=== PATIENT | female | born 1965 | race Caucasian/White ===

== ENCOUNTER 2016-07-02 19:17 | Inpatient (IN) | payer BC ==
[2016-07-02] MEDS ORDERED: SODIUM CHLORIDE 0.9% 500 ML IV STA (19:29)
[2016-07-02 19:45] LABS: Basophils # (A) 0.1 k/uL (0-0.2); Basophils % (A) 1 %; CH 30.8; CHCM 34.1; Eosinophils # (A) 0.2 k/uL (0-0.7); Eosinophils % (A) 2 %; HCT 42.6 % (34.0-46.0); HDW 2.39; Luc # (Auto) 0.21; Luc % (Auto) 3; Lymphocytes # (A) 2.3 k/uL (1.0-4.8); Lymphocytes % (A) 29 %; MCH 29.8 pg (25.0-35.0); MCHC 32.9 g/dL (31.0-37.0); MCV 90.7 fL (80.0-100.0); Monocytes # (A) 0.3 k/uL (0-1.0); Monocytes % (A) 4 %; Neutrophils % (A) 62 %; RDW 12.3 % (11.5-15.5); WBC (Perox) 8.21
--- NOTE | 2016-07-02 19:48 | ED ---
General Adult HPI - General Chief complaint: Arrhythmia/Palpitations Stated complaint: Palpatations Time Seen by Provider: 07/02/16 19:30 Source: patient, RN notes reviewed Mode of arrival: ambulatory Limitations: no limitations - History of Present Illness Initial comments: Is a 50-year-old female presents to the emergency department complaining of palpitations patient states she can feel her heart racing and then she is a little short of breath and a little bit dizzy. Patient thought at one point she was going to pass out. Patient states she's never had this before. Patient denies any chest pain. Patient denies any smoking. Patient denies any health problems. Patient denies any recent fever chills or cough. Patient denies any recent travel or trips. Patient denies any leg swelling or calf tenderness. - Related Data Home Medications Medication Instructions Recorded Confirmed No Known Home Medications [No 07/02/16 07/02/16 Known Home Medications] Allergies Allergy/AdvReac Type Severity Reaction Status Date / Time Penicillins Allergy Unknown Verified 07/02/16 19:49 Childhood Review of Systems ROS Statement: Those systems with pertinent positive or pertinent negative responses have been documented in the HPI. ROS Other: All systems not noted in ROS Statement are negative. Past Medical History Past Medical History: No Reported History History of Any Multi-Drug Resistant Organisms: None Reported Past Surgical History: Tonsillectomy Past Psychological History: Anxiety, Depression Smoking Status: Former smoker Past Alcohol Use History: Occasional Past Drug Use History: None Reported General Exam - General Exam Comments Initial Comments: GENERAL: Patient is well-developed and well-nourished. Patient is nontoxic and well- hydrated and is in no acute distress. ENT: Neck is soft and supple. No significant lymphadenopathy is noted. Oropharynx is clear. Moist mucous membranes. Neck has full range of motion without eliciting any pain. EYES: The sclera were anicteric and conjunctiva were pink and moist. Extraocular movements were intact and pupils were equal round and reactive to light. Eyelids were unremarkable. PULMONARY: Unlabored respirations. Good breath sounds bilaterally. No audible rales rhonchi or wheezing was noted. CARDIOVASCULAR: There is a regular rate and rhythm without any murmurs gallops or rubs. ABDOMEN: Soft and nontender with normal bowel sounds. No palpable organomegaly was noted. There is no palpable pulsatile mass. SKIN: Skin is clear with no lesions or rashes and otherwise unremarkable. NEUROLOGIC: Patient is alert and oriented x3. Cranial nerves II through XII are grossly intact. Motor and sensory are also intact. Normal speech, volume and content. Symmetrical smile. MUSCULOSKELETAL: Normal extremities with adequate strength and full range of motion. No lower extremity swelling or edema. No calf tenderness. LYMPHATICS: No significant lymphadenopathy is noted PSYCHIATRIC: Normal psychiatric evaluation. Normal interpersonal interactions appears functionally intact in deals appropriately with others. No signs of depression. No signs of anxiety. Limitations: no limitations Course Vital Signs 07/02/16 07/02/16 07/02/16 19:27 19:29 20:03 Temperature 98.4 F Pulse Rate 121 H 99 Pulse Rate [ 111 H Journeyman [employer]wright ] Respiratory 18 18 Rate Blood Pressure 150/94 O2 Sat by Pulse 96 98 Oximetry 07/02/16 21:00 Temperature 98.0 F Pulse Rate 124 H Pulse Rate [ Journeyman [place]wright ] Respiratory 20 Rate Blood Pressure 138/63 O2 Sat by Pulse 98 Oximetry Medical Decision Making - Medical Decision Making EKG shows sinus tachycardia at 103 bpm WI interval 108 QRSs 88 QT interval 344 QTC is 450 per patient's EKG shows no ST segment elevation or depression or T wave abnormalities are noted Chest x-ray shows no acute abdomen. Patient's heart rate Racing up to 120 beats a minute even though she was lying in bed resting. Patient states when he goes faster she feels little lightheaded and short of breath still. Patient states earlier today she almost passed out and that is why she came to the emergency department - Lab Data Result diagrams: 07/02/16 19:35 07/02/16 19:35 Lab Results 07/02/16 07/02/16 07/02/16 Range/Units 19:35 19:35 19:35 WBC 8.0 (3.8-10.6) k/uL RBC 4.70 (3.80-5.40) m/uL Hgb 14.0 (11.4-16.0) gm/dL Hct 42.6 (34.0-46.0) % MCV 90.7 (80.0-100.0) fL MCH 29.8 (25.0-35.0) pg MCHC 32.9 (31.0-37.0) g/dL RDW 12.3 (11.5-15.5) % Plt Count 261 (150-450) k/uL Neutrophils % 62 % Lymphocytes % 29 % Monocytes % 4 % Eosinophils % 2 % Basophils % 1 % Neutrophils # 5.0 (1.3-7.7) k/uL Lymphocytes # 2.3 (1.0-4.8) k/uL Monocytes # 0.3 (0-1.0) k/uL Eosinophils # 0.2 (0-0.7) k/uL Basophils # 0.1 (0-0.2) k/uL PT (9.0-12.0) sec INR (<1.1) APTT (22.0-30.0) sec Sodium 144 (137-145) mmol/L Potassium 3.6 (3.5-5.1) mmol/L Chloride 106 (98-107) mmol/L Carbon Dioxide 24 (22-30) mmol/L Anion Gap 14 mmol/L BUN 23 H (7-17) mg/dL Creatinine 0.80 (0.52-1.04) mg/dL Est GFR (MDRD) Af Amer >60 (>60 ml/min/1.73 sqM) Est GFR (MDRD) Non-Af >60 (>60 ml/min/1.73 sqM) Glucose 110 H (74-99) mg/dL Calcium 10.0 (8.4-10.2) mg/dL Magnesium 1.8 (1.6-2.3) mg/dL Total Bilirubin 0.3 (0.2-1.3) mg/dL AST 41 H (14-36) U/L ALT 55 H (9-52) U/L Alkaline Phosphatase 91 (38-126) U/L Total Creatine Kinase 63 (30-135) U/L CK-MB (CK-2) 0.5 (0.0-2.4) ng/mL CK-MB (CK-2) Rel Index 0.8 Troponin I <0.012 (0.000-0.034) ng/mL Total Protein 8.2 (6.3-8.2) g/dL Albumin 4.8 (3.5-5.0) g/dL TSH 3.220 (0.465-4.680) mIU/L Free T4 0.70 L (0.78-2.19) ng/dL Urine Opiates Screen (NotDetected) Ur Oxycodone Screen (NotDetected) Urine Methadone Screen (NotDetected) Ur Propoxyphene Screen (NotDetected) Ur Barbiturates Screen (NotDetected) U Tricyclic Antidepress (NotDetected) Ur Phencyclidine Scrn (NotDetected) Ur Amphetamines Screen (NotDetected) U Methamphetamines Scrn (NotDetected) U Benzodiazepines Scrn (NotDetected) Urine Cocaine Screen (NotDetected) U Marijuana (THC) Screen (NotDetected) 07/02/16 07/02/16 Range/Units 19:35 21:10 WBC (3.8-10.6) k/uL RBC (3.80-5.40) m/uL Hgb (11.4-16.0) gm/dL Hct (34.0-46.0) % MCV (80.0-100.0) fL MCH (25.0-35.0) pg MCHC (31.0-37.0) g/dL RDW (11.5-15.5) % Plt Count (150-450) k/uL Neutrophils % % Lymphocytes % % Monocytes % % Eosinophils % % Basophils % % Neutrophils # (1.3-7.7) k/uL Lymphocytes # (1.0-4.8) k/uL Monocytes # (0-1.0) k/uL Eosinophils # (0-0.7) k/uL Basophils # (0-0.2) k/uL PT 9.6 (9.0-12.0) sec INR 0.9 (<1.1) APTT 23.1 (22.0-30.0) sec Sodium (137-145) mmol/L Potassium (3.5-5.1) mmol/L Chloride (98-107) mmol/L Carbon Dioxide (22-30) mmol/L Anion Gap mmol/L BUN (7-17) mg/dL Creatinine (0.52-1.04) mg/dL Est GFR (MDRD) Af Amer (>60 ml/min/1.73 sqM) Est GFR (MDRD) Non-Af (>60 ml/min/1.73 sqM) Glucose (74-99) mg/dL Calcium (8.4-10.2) mg/dL Magnesium (1.6-2.3) mg/dL Total Bilirubin (0.2-1.3) mg/dL AST (14-36) U/L ALT (9-52) U/L Alkaline Phosphatase (38-126) U/L Total Creatine Kinase (30-135) U/L CK-MB (CK-2) (0.0-2.4) ng/mL CK-MB (CK-2) Rel Index Troponin I (0.000-0.034) ng/mL Total Protein (6.3-8.2) g/dL Albumin (3.5-5.0) g/dL TSH (0.465-4.680) mIU/L Free T4 (0.78-2.19) ng/dL Urine Opiates Screen Not Detected (NotDetected) Ur Oxycodone Screen Not Detected (NotDetected) Urine Methadone Screen Not Detected (NotDetected) Ur Propoxyphene Screen Not Detected (NotDetected) Ur Barbiturates Screen Not Detected (NotDetected) U Tricyclic Antidepress Not Detected (NotDetected) Ur Phencyclidine Scrn Not Detected (NotDetected) Ur Amphetamines Screen Not Detected (NotDetected) U Methamphetamines Scrn Not Detected (NotDetected) U Benzodiazepines Scrn Not Detected (NotDetected) Urine Cocaine Screen Not Detected (NotDetected) U Marijuana (THC) Screen Not Detected (NotDetected) Disposition Clinical Impression: Sinus tachycardia, Near syncope Disposition: ADMITTED IP TO THIS HOSP Time of Disposition: 22:01
[2016-07-02 19:57] LABS: ALT 55 U/L (9-52); AST 41 U/L (14-36); Alkaline Phosphatase 91 U/L (38-126); Anion Gap 14 mmol/L; Blood Urea Nitrogen 23 mg/dL (7-17); Carbon Dioxide 24 mmol/L (22-30); Chloride 106 mmol/L (98-107); Glucose 110 mg/dL (74-99); Magnesium 1.8 mg/dL (1.6-2.3); Non-African American GFR(MDRD) >60 (>60 ml/min/1.73 sqM); Potassium 3.6 mmol/L (3.5-5.1); Sodium 144 mmol/L (137-145); Total Bilirubin 0.3 mg/dL (0.2-1.3); Total Protein 8.2 g/dL (6.3-8.2)
[2016-07-02 20:13] LABS: INR 0.9 (<1.1); Partial Thromboplastin Time 23.1 sec (22.0-30.0); Prothrombin Time 9.6 sec (9.0-12.0)
[2016-07-02 20:21] LABS: Creatine Kinase 63 U/L (30-135)
[2016-07-02 20:32] LABS: Creatine Kinase MB 0.5 ng/mL (0.0-2.4); Troponin I <0.012 ng/mL (0.000-0.034)
--- NOTE | 2016-07-02 20:48 | XR ---
EXAMINATION TYPE: XR chest 2V DATE OF EXAM: 07/02/2016 8:32 PM COMPARISON: NONE HISTORY: Dysrhythmia TECHNIQUE: Frontal and lateral views of the chest are obtained. FINDINGS: Heart and mediastinum are normal. Lungs are clear. Diaphragm is normal. There are chest le ads. Bony thorax appears normal. IMPRESSION: Normal chest
[2016-07-02] MEDS ORDERED: NITROGLYCERIN SL TABS 0.4 MG TAB SUBLINGUAL PRN (22:01)
[2016-07-02 22:49] VITALS: BMI 24.2
[2016-07-03 01:38] LABS: Creatine Kinase 51 U/L (30-135)
[2016-07-03 01:52] LABS: Creatine Kinase MB 0.4 ng/mL (0.0-2.4); Troponin I <0.012 ng/mL (0.000-0.034)
[2016-07-03] MEDS: ASPIRIN 325 MG TAB PO SCH (08:18)
[2016-07-03 08:50] LABS: Cholesterol 214 mg/dL (<200); HDL Cholesterol 94 mg/dL (40-60); Triglycerides 38 mg/dL (<150)
[2016-07-03 09:02] LABS: Creatine Kinase 51 U/L (30-135)
--- NOTE | 2016-07-03 09:08 | P.CRDCN ---
History of Present Illness Consult date: 07/03/16 Chief complaint: Heart racing History of present illness: This is a pleasant 50-year-old female patient with no significant past medical history who presented to the emergency room because she was not feeling well. The patient was in her usual state of health until the time she presented complaining of heart racing and fluttering. She felt dizzy and lightheaded and she almost passing out. Denies having any chest pain or discomfort. No shortness of breath. And no syncope. She was found to be in sinus tachycardia. The sinus tachycardia has improved after the patient received a bolus of 500 mL of 0.9 normal saline. The TSH was checked and came in to be within normal limits but the free T4 was on the low limits of normal. The EKG shows sinus rhythm without any significant changes. The cardiac enzymes were checked and came in to be unremarkable. I will obtain an echocardiogram with Doppler. The patient sinus tachycardia seems to be resolved and her heart rate has been in the 60s. Past Medical History Past Medical History: No Reported History Additional Past Medical History / Comment(s): broncitis, pneumonia History of Any Multi-Drug Resistant Organisms: None Reported Past Surgical History: Tonsillectomy Additional Past Surgical History / Comment(s): Rt hand surgery Past Anesthesia/Blood Transfusion Reactions: No Reported Reaction Past Psychological History: Anxiety, Depression Smoking Status: Former smoker Past Alcohol Use History: Occasional Past Drug Use History: None Reported Medications and Allergies Home Medications Medication Instructions Recorded Confirmed Type No Known Home Medications [No 07/02/16 07/02/16 History Known Home Medications] Allergies Allergy/AdvReac Type Severity Reaction Status Date / Time Penicillins Allergy Unknown Verified 07/02/16 19:49 Childhood Physical Exam Vitals: Vital Signs Temp Pulse Pulse Resp BP Pulse Ox 07/03/16 08:21 61 07/03/16 07:50 99 07/03/16 07:31 109/59 07/03/16 07:29 98.3 F 80 16 99 07/03/16 04:00 98.3 F 78 18 110/56 99 07/02/16 23:00 18 07/02/16 22:52 98.2 F 100 18 131/71 96 Intake and Output 07/02/16 07/03/16 07/03/16 22:59 06:59 14:59 Intake Total 200 Balance 200 Intake: Oral 200 Other: Voiding Method Toilet Toilet # Voids 2 Weight 68.039 kg - Constitutional General appearance: no acute distress - Respiratory Respiratory: bilateral: CTA - Cardiovascular Rhythm: regular Heart sounds: normal: S1, S2 Results 07/02/16 19:35 07/02/16 19:35 Cardiac Enzymes 07/03/16 Range/Units 00:48 CK-MB (CK-2) 0.4 (0.0-2.4) ng/mL Troponin I <0.012 (0.000-0.034) ng/mL Lipids 07/03/16 Range/Units 07:30 Triglycerides 38 (<150) mg/dL Cholesterol 214 H (<200) mg/dL HDL Cholesterol 94 H (40-60) mg/dL Current Medications Generic Name Dose Route Start Last Admin Trade Name Freq PRN Reason Stop Dose Admin Aspirin 325 mg 07/03/16 09:00 07/03/16 08:18 Aspirin PO 325 mg DAILY MOISES Administration Nitroglycerin 0.4 mg 07/02/16 22:01 Nitrostat SUBLINGUAL Q5M PRN Chest Pain Intake and Output 07/02/16 07/03/16 07/03/16 22:59 06:59 14:59 Intake Total 200 Balance 200 Intake: Oral 200 Other: Voiding Method Toilet Toilet # Voids 2 Weight 68.039 kg Assessment and Plan Plan: Assessment #1 sinus tachycardia #2 possible dehydration Plan #1 the patient sinus tachycardia has improved #2 obtain an echocardiogram was Doppler #3 follow-up with the patient
[2016-07-03 09:14] LABS: Creatine Kinase MB 0.4 ng/mL (0.0-2.4); Troponin I <0.012 ng/mL (0.000-0.034)
[2016-07-03] MEDS: METOPROLOL TARTRATE 25 MG TAB PO SCH ×2 (11:25→21:05)
--- NOTE | 2016-07-03 14:38 | ECHOF ---
Referral Reason:tachycardia MEASUREMENTS -------- HEIGHT: 167.6 cm WEIGHT: 68.0 kg BP: IVSd: 0.8 cm (0.6 - 1.1) LVIDd: 4.3 cm (3.9 - 5.3) LVPWd: 1.1 cm (0.6 - 1.1) IVSs: 1.2 cm LVIDs: 2.0 cm LVPWs: 1.6 cm Ao Diam: 2.9 cm (2.0 - 3.7) AV Cusp: 1.7 cm (1.5 - 2.6) LA Diam: 2.9 cm (2.7 - 3.8) MV EXCURSION: 11.236 mm (> 18.000) MV EF SLOPE: 80 mm/s (70 - 150) EPSS: 0.3 cm MV E Haim: 1.04 m/s MV DecT: 149 ms MV A Haim: 0.86 m/s MV E/A Ratio: 1.21 RAP: 5.00 mmHg RVSP: 17.74 mmHg FINDINGS -------- Sinus rhythm. This was a technically good study. Left ventricular wall thickness is normal. Overall left ventricular systolic function is normal with, an EF between 60 - 65 %. False Tendon Visualized in the LV The right ventricle is normal in size and function. The left atrium is normal in size. The right atrium is normal in size. The aortic valve is trileaflet, and appears structurally normal. No aortic stenosis or regurgitation. There is trace mitral regurgitation. Trace tricuspid regurgitation present. The right ventricular systolic pressure, as measured by Doppler, is 17.74mmHg. Pulmonic valve appears structurally normal. The aortic root size is normal. The pericardium is normal. CONCLUSIONS -------- 1. Sinus rhythm. 2. There is trace mitral regurgitation. 3. Trace tricuspid regurgitation present. 4. The right ventricular systolic pressure, as measured by Doppler, is 17.74mmHg. 5. Pulmonic valve appears structurally normal. 6. The aortic root size is normal. 7. The pericardium is normal. 8. This was a technically good study. 9. Left ventricular wall thickness is normal. 10. Overall left ventricular systolic function is normal with, an EF between 60 - 65 %. 11. False Tendon Visualized in the LV 12. The right ventricle is normal in size and function. 13. The left atrium is normal in size. 14. The right atrium is normal in size. 15. The aortic valve is trileaflet, and appears structurally normal. No aortic stenosis or regurgitation. LITIGATION SECRETARY: Mary Walker RDCS
[2016-07-03 21:18] LABS: Appearance,Urine Clear (Clear); Bilirubin,Urine Negative (Negative); Glucose,Urine (UA) Negative (Negative); Ketones,Urine Negative (Negative); Leukocyte Esterase,Urine Negative (Negative); Nitrite,Urine Negative (Negative); PH, Urine 6.5 (5.0-8.0); Protein,Urine Negative (Negative); Specific Gravity,Urine 1.006 (1.001-1.035); UA Billing (MACRO vs. MICRO) CHEM; Urobilinogen,Urine <2.0 mg/dL (<2.0)
[2016-07-04 06:39] LABS: Basophils % (A) 1 %; CH 29.9; CHCM 32.9; Eosinophils # (A) 0.1 k/uL (0-0.7); Eosinophils % (A) 2 %; HCT 39.1 % (34.0-46.0); HDW 2.33; HGB 12.8 gm/dL (11.4-16.0); Luc # (Auto) 0.19; Luc % (Auto) 3; Lymphocytes # (A) 2.1 k/uL (1.0-4.8); Lymphocytes % (A) 32 %; MCH 29.9 pg (25.0-35.0); MCHC 32.7 g/dL (31.0-37.0); MCV 91.3 fL (80.0-100.0); Mean Platelet Volume 7.2; Monocytes # (A) 0.3 k/uL (0-1.0); Monocytes % (A) 4 %; Neutrophils # (A) 3.9 k/uL (1.3-7.7); Neutrophils % (A) 59 %; RBC 4.29 m/uL (3.80-5.40); RDW 12.2 % (11.5-15.5); WBC 6.6 k/uL (3.8-10.6); WBC (Perox) 7.18
[2016-07-04 06:52] LABS: ALT 43 U/L (9-52); AST 25 U/L (14-36); Alkaline Phosphatase 80 U/L (38-126); Anion Gap 9 mmol/L; Blood Urea Nitrogen 13 mg/dL (7-17); Calcium 10.1 mg/dL (8.4-10.2); Carbon Dioxide 27 mmol/L (22-30); Chloride 107 mmol/L (98-107); Glucose 94 mg/dL (74-99); Non-African American GFR(MDRD) >60 (>60 ml/min/1.73 sqM); Potassium 4.9 mmol/L (3.5-5.1); Sodium 143 mmol/L (137-145); Total Bilirubin 0.5 mg/dL (0.2-1.3); Total Protein 7.4 g/dL (6.3-8.2)
[2016-07-04 08:18] VITALS: RESP 16
[2016-07-04] MEDS ORDERED: METOPROLOL TARTRATE 12.5 MG TAB PO SCH (08:18)
--- NOTE | 2016-07-04 08:24 | P.PN ---
Subjective Principal diagnosis: sinus tachycardia This is a pleasant 50-year-old female patient with no significant past medical history who presented to the emergency room because she was not feeling well. The patient was in her usual state of health until the time she presented complaining of heart racing and fluttering. She felt dizzy and lightheaded and she almost passing out. Denies having any chest pain or discomfort. No shortness of breath. And no syncope. She was found to be in sinus tachycardia. The sinus tachycardia has improved after the patient received a bolus of 500 mL of 0.9 normal saline. The TSH was checked and came in to be within normal limits but the free T4 was on the low limits of normal. The EKG shows sinus rhythm without any significant changes. The cardiac enzymes were checked and came in to be unremarkable. the patient underwent an echocardiogram which showed normal function. There is no significant valvular abnormalities. The patient was started on beta kyara with metoprolol at 25 mg by mouth twice a day. Later on during the day she had an episode of profound and symptomatic bradycardia where the heart rate dropped to the 30s. I am going to decrease the dose of metoprolol to 12.5 mg by mouth twice a day. I'll try to get the patient up and around. We'll continue monitor the heart rate and continue monitor the blood pressure and I would keep the patient for additional 24 hours in the hospital. Objective - Vital Signs Vital signs: Vital Signs Temp 98.2 F 07/04/16 08:00 Pulse 56 L 07/04/16 08:00 Resp 16 07/04/16 08:00 BP 99/54 07/04/16 08:00 Pulse Ox 96 07/04/16 08:00 Intake & Output 07/03/16 07/04/16 07/04/16 18:59 06:59 18:59 Intake Total 275 450 Balance 275 450 Intake: Oral 275 450 Other: Voiding Method Toilet Toilet # Voids 1 3 - Constitutional General appearance: Present: no acute distress - Respiratory Respiratory: bilateral: CTA - Cardiovascular Rhythm: regular Heart sounds: normal: S1, S2 - Labs CBC & Chem 7: 07/04/16 06:11 07/04/16 06:11 Labs: Abnormal Lab Results - Last 24 Hours (Table) 07/03/16 Range/Units 07:30 Cholesterol 214 H (<200) mg/dL LDL Cholesterol, Calc 112 H (0-99) mg/dL HDL Cholesterol 94 H (40-60) mg/dL Assessment and Plan Plan: Assessment #1 symptomatic sinus bradycardia #2 possible dehydration Plan #1 decrease the dose of metoprolol #2 the echocardiogram was reviewed #3 follow-up with the patient
[2016-07-04] MEDS: ASPIRIN 325 MG TAB PO SCH (09:30)
--- NOTE | 2016-07-04 14:04 | HP ---
DATE OF SERVICE: 07/03/2016 CHIEF COMPLAINT: Palpitations. Ms. Tong is a 50-year-old female with no significant past medical history, coming into the hospital with a chief complaint of palpitations. The patient states that she was in her usual state of health yesterday when she started to feel that her heart was racing and fluttering and she also felt dizzy and light-headed and she thought that she would almost pass out and so came into the hospital for further evaluation. The patient just complaints of palpitations and dizziness, but denies having any chest pain, any difficulty in breathing. She does not have any complaints of cough. No cold-like symptoms. No sick contacts. No recent travel. No history of blood clots. The patient denies having any nausea, vomiting, abdominal pain. No diarrhea. Patient denies having any urinary tract symptoms. Patient denies having any swelling of her lower extremities. No swelling of her joints. Except for palpitations and dizziness, she does not have any other complaints. REVIEW OF SYSTEMS: All 14 of review of systems are done and negative except for the ones mentioned above. PAST MEDICAL HISTORY: None. HOME MEDICATIONS: None. PAST SURGICAL HISTORY: Positive for a tonsillectomy. PAST PSYCHIATRIC HISTORY: Positive for anxiety and depression. SOCIAL HISTORY: History of smoking in the past. Occasional alcohol use. No history of intravenous drug abuse. FAMILY HISTORY: Positive for hypertension and lung cancer in her father. Mother has coronary artery disease. Patient's vitals: T-max is 98.9. When she came in, her heart rate was in 120s, but currently she is between 60 to 78, respiratory rate 16, blood pressure is 138/69, saturating at 99% on 2L of nasal cannula. GENERAL: Patient appears to be having some shivering. No acute distress. HEAD: Atraumatic, normocephalic. EYES: Pupils, round and reactive to light. ENT: No nasal congestion. No pharyngeal erythema. NECK: No JVD. No thyromegaly. CARDIOVASCULAR: S1, S2 heard. RESPIRATORY: Bilateral breath sounds are positive. No wheeze or crackles. ABDOMEN: Soft, nontender. No organomegaly. Bowel sounds are positive. EXTREMITIES: No edema. No cyanosis. No clubbing. Peripheral pulses are felt. ADMISSIONS DEAN: Alert, awake, oriented x3. No focal neurological deficits. PSYCHIATRIC: Appropriate mood and affect. MUSCULOSKELETAL: No joint swelling or deformity. Patient's labs: White count of 8, hemoglobin is 14, platelets of 261. Sodium is 144, potassium 3.6, chloride 106, bicarb 24, BUN 23, creatinine 0.80. Troponin less than 0.012 x3. LDL is 112. TSH is 3.220 and T4 of 0.70. UDS is negative for any illicit substances. ASSESSMENT: 1. Palpitations. 2. Dizziness. PLAN: The patient has palpitations and has been shivering and complains of dizziness. Clinically, there are no symptoms suggestive of any infection going on, but will obtain a UA, urine culture and blood cultures for now I do not see the need for her to be on any antibiotic at this point of time, but if she has any fevers or develops a white count, will have to think about starting her antibiotics. For now, the beta kyara seems to have her heart rate under control. Echocardiogram is pending. Further recommendations to follow, depending on the progress of the patient. Will get CBC and CMP for tomorrow morning. Treatment care plan was discussed with the patient and her , who is at the bedside, in detail. Will follow the patient. FINA
--- NOTE | 2016-07-04 19:06 | PN ---
DATE OF SERVICE: 07/04/2016 INTERVAL HISTORY: Ms. Tong is a 50-year-old female with no significant past medical history, coming into the hospital with a chief complaint of palpitations and dizziness. Patient was tachycardic and heart rate was around 120s when she got to the hospital, so she has been started on metoprolol and her heart rate slowed down. Patient still has dizziness and her heart rate dropped down to as low as 40s with some pauses, so the dose of her metoprolol has been decreased to 12.5 mg b.i.d. today by cardiology, Dr. Orellana. REVIEW OF SYSTEMS: CONSTITUTIONAL: She denies having any fevers, chills or rigors. RESPIRATORY: No cough. No difficulty in breathing. CARDIAC: Patient does not have palpitations, but she complains of dizziness. GI: No abdominal pain, nausea, vomiting or diarrhea. : No dysuria or hematuria. Patient's medications have been reviewed. On examination, patient's vital signs: Temperature is 98.8, heart rate around 40s to 60s, respiratory rate 16, blood pressure 106/56, saturating at 96% on room air. GENERAL: Patient appears to be no acute distress. HEAD: Atraumatic, normocephalic. Pupils round and reactive to light. NECK: No JVD. No thyromegaly. CARDIOVASCULAR: S1, S2 heard, bradycardia. RESPIRATORY: Bilateral breath sounds positive. No wheezes or crackles. GI: Abdomen is soft, nontender. No organomegaly. Bowel sounds are positive. EXTREMITIES: No edema. No cyanosis. No clubbing. Peripheral pulses are felt. SENIOR RESEARCH SCIENTIST: Awake, oriented x3. No focal neurological deficits. PSYCHIATRIC: Appropriate mood and affect. SKIN: No rashes. Patient's labs from this morning: White count of 6.6, hemoglobin is 12.8, platelets 251. Sodium 143, potassium 4.9, chloride 107, bicarb 27, BUN 13, creatinine 0.75. The UA is negative for any urinary tract infection. ASSESSMENT AND PLAN: 1. Palpitations. 2. Dizziness. 3. Sinus bradycardia. PLAN: The patient's metoprolol has been decreased to 12.5 mg b.i.d., so will continue to monitor the patient. She does not clinically have any signs or symptoms of infection. Her lytes are within normal limits. Will continue to follow the patient and further recommendations, depending on the progress of the patient. MTDD
[2016-07-05] MEDS ORDERED: METOPROLOL TARTRATE 12.5 MG TAB PO SCH (09:00)
--- NOTE | 2016-07-05 09:34 | PN ---
Blanche is a 50-year-old lady who was admitted to hospital with dizziness and not feeling well and was found to have sinus tachycardia. She had an echocardiogram that showed normal LV systolic function. She was in sinus rhythm. Work-up was essentially benign and unremarkable. She was supposed to have a stress test today. The patient was started on beta blockers and has developed episodes of pauses and bradycardia. She did not have any syncopal events. On exam this morning, she is comfortable at rest, afebrile. Heart rate is 70 beats per minute, blood pressure is 125/70, respiratory rate is 18. There is no jugular venous distention. Chest exam reveals good air entry bilaterally. Heart exam reveals first and second heart sounds. No gallop. No murmur. ABDOMEN: Soft, nontender. Exam of the extremities did not reveal any edema. Peripheral pulses are felt. Labs show a hemoglobin of 12.8, platelet count is 250. Two sets of cardiac enzymes are negative. TSH is normal at 4. ASSESSMENT: 1. Dizziness and sinus tachycardia of unclear etiology. 2. Sinus pauses, probably secondary to beta blockers. PLAN: I am going to stop the metoprolol, ambulate her and if she is up to date go through the stress test today.
[2016-07-05] MEDS: ASPIRIN 325 MG TAB PO SCH (12:28)
[2016-07-05] MEDS ORDERED: SODIUM CHLORIDE 0.9% 500 ML IV ONE (14:37)
--- NOTE | 2016-07-05 15:12 | ECHOS ---
DATE OF SERVICE: 07/05/2016 AGE: 50Y SEX: F HT: 66" WT: 150 lbs. Protocol Mohan: X Others: Stress Echo Stage: 3 Dur. of Exercise: 9:00 *Heart Rate Blood Pressure *Rest: 93 Rest: 148/74 * *Max. Achieved: 155 Maximum BP: 194/75 85% PMHR: 146 100% PMHR: 172 *METS: 9.6 INDICATIONS: Shortness of breath. MEDICATIONS: - STRESS DATA: Pretesting physical examination showed a heart rate of 93. Pressure is 148/74 mmHg. Baseline EKG showed sinus rhythm. The patient exercised according to Mohan protocol for a total of 9 minutes and achieved 9.6 METs. Max heart rate was 155 beats per minute which is about 90% of maximum predicted heart rate. Maximum blood pressure was 194/75 mmHg. Clinically, the patient did not have any symptoms of chest pain or chest discomfort and the EKG did not show any significant ST or T-wave abnormalities consistent with ischemia. ECHOCARDIOGRAM IMAGES: On echocardiogram images from parasternal long axis view, parasternal short axis view, apical 4 chambers and apical 2 chamber view, were obtained as the baseline images, at the peak of the heart rate, as well as on recovery. The echocardiogram images showed overall good augmentation in the left ventricular systolic function without any evidence of wall motion abnormalities consistent with ischemia. CONCLUSION: 1. Excellent exercise capacity. 2. Normal EKG in response to exercise. 3. Normal echocardiogram in response to exercise.
--- NOTE | 2016-07-05 18:00 | P.PCN ---
Preoperative Diagnosis: Patient underwent tilt table test per protocol she rate 12-lead ECG on July 02 which showed sinus tachycardia and is already been interpreted. Tilt table test report has been dictated elsewhere
--- NOTE | 2016-07-05 18:46 | CE ---
DATE OF SERVICE: Blanche Tong is referred by Dr. Orellana for a tilt table test for dizzy spells. Baseline blood pressure 135/66 mm of Hg. Baseline heart rate 81 beats a minute. The patient was tilted upright at an angle of 70 degrees per protocol. Blood pressure and heart rate remained stable. She did complain of some pounding in the chest and the heart rate is 103 beats a minute at that time. She was laid supine at the end of the procedure. ( ) stable. She also felt warm and lightheaded and at that time her blood pressure was 118/81 millimeters of mercury and she has sinus tachycardia syndrome at 112 beats a minute. However, she did not meet criteria for partial orthostatic tachycardia. IMPRESSION: 1. Normal heart rate and blood pressure response to upright tilting. 2. No clear-cut evidence for postural tachycardia syndrome. 3. No evidence for neurocardiogenic syncope.
--- NOTE | 2016-07-06 07:10 | PN ---
DATE OF SERVICE: 07/05/2016 Ms. Tong is a 50-year-old female with no significant past medical history coming into the hospital with a chief complaint of palpitations and dizziness. The patient was tachycardiac at the time of admission around 120, so patient has been started on metoprolol. After this , she developed bradycardia with some pauses. She was initially started on 25 mg b.i.d. of metoprolol then changed to 12.5 mg b.i.d. and eventually it has been discontinued. Today Dr. Paige cardiology on board has evaluated the patient and consulted EP, Dr. Perera, who is planning to do a procedure. The patient did leave for the procedure , so I did not physically examine the patient. Please follow up on the progress note from yesterday for her ongoing medical issues. FINA
--- NOTE | 2016-07-06 09:10 | P.PN ---
Subjective Patient is feeling much better. The dizziness and tachycardia have improved. Echo shows normal LV function. Stress test is negative. Tilt table test was negative. Objective - Vital Signs Vital signs: Vital Signs Temp 98.5 F 07/06/16 07:37 Pulse 64 07/06/16 07:37 Resp 16 07/06/16 07:37 BP 97/55 07/06/16 07:37 Pulse Ox 96 07/06/16 07:37 Intake & Output 07/05/16 07/06/16 07/06/16 18:59 06:59 18:59 Intake Total 236 Balance 236 Intake: Oral 236 Other: Voiding Method Toilet # Voids 1 - Exam A shunt is comfortable at rest vital signs are stable there is a jugular venous distention chest is clear Dr. percussion heart exam was first and second heart sounds no gallop exemption extremities did not will any edema per for pulses are felt - Labs CBC & Chem 7: 07/04/16 06:11 07/04/16 06:11 Assessment and Plan Plan: Sinus tachycardia and dizziness Exact etiology is unclear bradycardia was probably related to the beta blockers cardiac workup so far is negative she can be discharged home and outpatient follow-up through Dr. Stockton
[2016-07-06] MEDS: ASPIRIN 325 MG TAB PO SCH (09:41)
[2016-07-06 16:02] VITALS: BP 113/72; PULSE 78; TEMP 98.3
[2016-07-06] MEDS ORDERED: POLYETHYLENE GLYCOL 3350 17 GM POWD.PACK PO SCH (18:00)
--- NOTE | 2016-07-08 05:01 | DS ---
DATE OF ADMISSION: 07/02/2016 DATE OF DISCHARGE: 07/06/2016 Cardiology consultation. Tilt table test and stress test. DISCHARGE DIAGNOSES: 1. Dizziness and palpitations, on and off. 2. Sinus bradycardia, likely due to beta blockers. 3. Sinus pauses. Beta blockers have been discontinued. HOSPITAL COURSE: Ms. Tong is a 50-year-old female without significant past medical history came to the hospital with the complaints of dizziness and palpitations on and off, sometimes she wakes up with the symptoms. Patient was ruled out acute coronary syndrome. The patient initially had sinus tachycardia and was started on beta blockers. Patient went into bradycardia for which beta blockers have been discontinued. Currently heart rate is maintained. Patient otherwise still saying having symptoms on and off. Patient underwent stress test, which has been negative. Patient also was seen by Dr. Perera and underwent tilt table test, which was showing appropriate heart response. Otherwise currently patient is asymptomatic. Patient was recommended to follow up as an outpatient in the clinic in the next one week with Dr. Orellana. Otherwise, patient is stable to be discharged. DISCHARGE PHYSICAL EXAMINATION: A 50-year-old female, lying in the bed, awake, alert, oriented x3. Appears to be in no apparent distress. VITALS: Blood pressure is 113/72, pulse is 78, respirations 16, temperature afebrile, pulse ox 96% on room air. LABORATORY DATA: Reviewed. TSH is 4.01 and LDL is 112. Total cholesterol is 214. UA negative. UDS negative. Discharge physical examination done. DISCHARGE MEDICATIONS: None. Follow with Dr. Orellana on 07/27/2016 at 4 p.m. Follow with the primary care physician in 1 to 2 days. Home with self care. Activity as tolerated. Heart healthy diet. Patient was advised to come to the ER as soon as possible when the symptoms recurs. Otherwise, the patient is stable for discharge.
== END 2016-07-06 18:12 | disposition home or self-care (01) | DRG 310 ==
LOC: EC 19:17 → 3OBS 22:02 → OBSVTOIN 07-05 23:44
PROVIDERS: ADMIT Hospitalist; ATTEND Hospitalist
PROC: 4A03XB1 Measurement of Arterial Pressure, Peripheral, External Approach (ICD-10-PCS; 2016-07-05)
PROC: 4A02XM4 Measurement of Cardiac Total Activity, External Approach (ICD-10-PCS; 2016-07-05)
PROC: B246ZZZ Ultrasonography of Right and Left Heart (ICD-10-PCS; 2016-07-05)
PROC: 4A02XFZ Measurement of Cardiac Rhythm, External Approach (ICD-10-PCS; principal; 2016-07-05 14:27)
DX: R00.0 Tachycardia, unspecified (principal); I49.5 Sick sinus syndrome; F32.9 Major depressive disorder, single episode, unspecified; R00.2 Palpitations; E86.0 Dehydration; T44.7X5A Adverse effect of beta-adrenoreceptor antagonists, initial encounter; R55 Syncope and collapse; F41.9 Anxiety disorder, unspecified; R68.89 Other general symptoms and signs; R06.02 Shortness of breath; Z88.0 Allergy status to penicillin; Z87.891 Personal history of nicotine dependence; Z80.1 Family history of malignant neoplasm of trachea, bronchus and lung; Z82.49 Family history of ischemic heart disease and other diseases of the circulatory system; Z87.01 Personal history of pneumonia (recurrent)
CPT/HCPCS: 36415; 71020; 80053; 80061; 80306; 81003; 82550; 82553; 83735; 84439; 84443; 84484; 85025; 85379; 85610; 85730; 87040; 87086; 93005; 93017; 93306; 93350; 93660; 94760; 96360; 99285

== ENCOUNTER → 2016-08-05 | Outpatient (CLI) | payer BC ==
--- NOTE | 2016-08-05 12:06 | MR ---
EXAMINATION TYPE: MR pituitary wo/w con DATE OF EXAM: 08/05/2016 10:50 AM COMPARISON: NONE HISTORY: abn findings on diagnositic CONTRAST: Patient received 15 mL intravenous MultiHance gadolinium contrast. Multiplanar MultiSpin echo imaging of the pituitary fossa was performed. Unenhanced followed by cont rast enhanced images are submitted. The unenhanced portion of the study fails to demonstrate evidence for hyperintense pituitary lesion. The pituitary gland is of normal size and measures 8.8 x 8.6 mm. Following contrast administration there is a 3 mm filling defect within the posterior portion of the pituitary gland which may reflect a small pituitary microadenoma. Pituitary stalk is midline. Suprasellar cistern is unremarkable with out evidence for mass. Optic chiasm has a normal appearance. Cavernous sinus including the carotid vessels appear to be within normal limits. IMPRESSION: 1. Suspect pituitary microadenoma.
== END | disposition home or self-care (01) ==
LOC: RADMRIMAIN 09:26
PROVIDERS: ATTEND Nurse Practitioner Family
DX: R93.8 Abnormal findings on diagnostic imaging of other specified body structures (principal)
CPT/HCPCS: 70553; A9577

== ENCOUNTER 2016-09-09 14:36 | Day surgery (SDC) | payer BC ==
[2016-09-03 12:48] VITALS: BMI 26.6
[~2016-09-09 14:36] MED LIST: CLINDAMYCIN 600 MG in SODIUM CHLORIDE 0.9% IRRIGATIO 250 ML IRRIGATION ONE; CLINDAMYCIN 900 MG in DEXTROSE 5% IN WATER 50 ML IVPB ONE
[2016-09-09] MEDS ORDERED: IV FLUID CONTINUATION 1,000 ML IV ONE (16:35)
[2016-09-09] MEDS: IOHEXOL 350 MG/ML 50ML BOTTLE INJ ONE ×2 (16:52→17:06)
[2016-09-09] MEDS ORDERED: NITROGLYCERIN SL TABS 0.4 MG TAB SUBLINGUAL ONE ×2 (16:54→16:57)
[2016-09-09] MEDS ORDERED: MIDAZOLAM 2 MG/2 ML VIAL ONE ×3 (17:25→18:37)
[2016-09-09] MEDS ORDERED: MIDAZOLAM 2 MG/2 ML VIAL IV ONE ×2 (17:31→18:42)
[2016-09-09] MEDS ORDERED: fentaNYL (PF) 50 MCG/ML 2 ML AMP ONE (17:43)
[2016-09-09] MEDS: fentaNYL (PF) 50 MCG/ML 2 ML AMP IV ONE ×2 (17:46→18:02)
[2016-09-09] MEDS ORDERED: LIDOCAINE 1% INJ 10MG/ML (20 ML MDV) SQ ONE ×4 (17:48→18:15)
[2016-09-09] MEDS: MIDAZOLAM 2 MG/2 ML VIAL IV ONE ×2 (17:52→18:14)
[2016-09-09] MEDS ORDERED: SODIUM CHLORIDE 0.9% 500 ML IV ONE (18:49)
[2016-09-09] MEDS ORDERED: ACETAMINOPHEN IV (For NPO) 1,000 MG in EMPTY BAG 1 BAG IVPB ONE (19:22)
[2016-09-09] MEDS ORDERED: ACETAMINOPHEN TAB 325 MG TAB PO PRN (19:22)
--- NOTE | 2016-09-09 19:31 | P.PCN ---
Preoperative Diagnosis: Patient underwent EP procedure [dual-chamber pacemaker implant] ) under conscious sedation/moderate sedation, monitoring of the level of consciousness and physiologic parameters including but not limited to vital signs and oxygenation. Patient tolerated the procedure well without any acute complications. Start time: 1447 Stop time: 1908 Postoperative Diagnosis: Procedure(s) Performed: Implants: Indications for Procedure: Operative Findings: Description of Procedure:
[2016-09-09 20:06] VITALS: RESP 16
--- NOTE | 2016-09-09 20:13 | PCN ---
DATE OF PROCEDURE: Blanche Tong has a history of recurrent dizziness with documented sick sinus syndrome and sinus pauses despite stopping metoprolol. She was referred by Dr. Orellana for a dual-chamber pacemaker implantation. The patient was brought to the EP lab in a fasting state. Written informed consent was obtained prior to the procedure. Right-sided implant was performed rather than the left side because of her venous anatomy of the left innominate subclavian system. It was a dual innominate vein from the left innominate vein and one was very tortuous and the other one narrowing at one point and therefore a decision was made to implant it to the right-side rather than the left. The right pectoral area was prepped and draped as per protocol. 1% Lidocaine was used for local anesthesia. A 4 cm incision was made parallel to the deltopectoral groove about 1.5 cm medial to it. The incision was carried down to level of pectoralis muscle. A subfascial pocket was made. Hemostasis was assured. The axillary vein was accessed at 2 separate points under fluoroscopy. Via appropriate-sized introducer sheaths, 2 leads were positioned in the right heart. The atrial lead was a 45 cm michelle lead, model #7735, serial #[id number]. The P waves were 7 mV, pacing threshold 0.7 v at 0.4 ms, pacing impedance of 635 ohms. The RV lead was a screw-in lead 52 cm model #7741, serial #[id number], RV was 22 mV, pacing threshold was 0.6 v at 0.4 ms, pacing impedance of 801 ohms, 10 V test was negative. Both leads were secured to the underlying pectoralis fascia using 2 nonabsorbable sutures. Pocket was irrigated with antibiotic solution. Leads were connected to the generator (Accolade MRIDR model L331, serial #[id number]) leads and the generator were placed subfascial pocket. The wound was closed in 3 layers and dressed per protocol. RESULT: Successful dual-chamber pacemaker implantation for symptomatic sick sinus syndrome. PLAN: IV antibiotics and pacemaker interrogation and chest x-ray. The patient will be discharged tomorrow. The device was programmed to DDD at 50 and 30 bpm. ( ) 150 to 130 bpm. Pacemaker ( ) to minimize RV pacing. Rate response has not been programmed at this time.
--- NOTE | 2016-09-09 20:14 | LTR ---
September 09, 2016 RE: Blanche Tong Dear Ofelia: I had the pleasure of seeing Blanche Tong in electrophysiology follow-up. Blanche was referred by Dr. Orellana for management of sick sinus syndrome with symptomatic sick sinus syndrome with long sinus pauses. She underwent a right-sided dual-chamber pacemaker implantation successfully. This is an MRI compatible device. She tolerated the procedure well without any acute complications. She will continue follow-up with you and Dr. Orellana as before. Thank you for entrusting us with the care of your patient. Warm regards. Sincerely, DENNIS CARRANZA MD
[2016-09-09] MEDS: clonazePAM 1 MG TAB PO SCH (20:43)
[2016-09-09] MEDS: HYDROcodone/APAP 5-325MG 1 EACH TAB PO PRN (20:43)
[2016-09-09] MEDS: CLINDAMYCIN 900 MG in DEXTROSE 5% IN WATER 50 ML IVPB SCH ×2 (23:00)
[2016-09-10] MEDS: HYDROcodone/APAP 5-325MG 1 EACH TAB PO PRN ×3 (02:47→13:20)
[2016-09-10] MEDS: CLINDAMYCIN 900 MG in DEXTROSE 5% IN WATER 50 ML IVPB SCH ×6 (05:08→16:36)
[2016-09-10 06:46] LABS: Glucose,Whole Blood 115 mg/dL (75-99)
[2016-09-10] MEDS: SODIUM CHLORIDE 0.9% 1,000 ML IV SCH ×2 (07:38→09:06)
[2016-09-10] MEDS: clonazePAM 1 MG TAB PO SCH (07:39)
--- NOTE | 2016-09-10 07:59 | XR ---
EXAMINATION TYPE: XR chest 2V DATE OF EXAM: 09/10/2016 6:31 AM COMPARISON: 07/02/2016 TECHNIQUE: PA and lateral views submitted. HISTORY: Pacemaker placement FINDINGS: The lungs are clear and there is no pneumothorax, pleural effusion, or focal pneumonia. Double lead pacemaker seen with the proximal lead overlying the right atrium and the distal lead overlying the r ight ventricle. IMPRESSION: 1. No postprocedural complication..
[2016-09-10] MEDS ORDERED: SERTRALINE 50 MG TAB PO SCH (09:00)
[2016-09-10] MEDS ORDERED: FLUDROCORTISONE 0.1 MG TAB PO SCH (10:15)
[2016-09-10] MEDS ORDERED: SODIUM CHLORIDE 0.9% 500 ML IV ONE (10:21)
--- NOTE | 2016-09-10 11:05 | PN ---
Blanche Tong is a patient of Dr. Orellana who was referred for management of symptomatic sick sinus syndrome without any reversible causes and she underwent a dual-chamber pacemaker implantation, right side. She is doing well today. She ( ) very dizzy and lightheaded and was hypotensive when she stood up for the x-ray. After receiving 500 mL of IV fluids, she is now stable. Orthostatics were repeated. She was not orthostatic now. She does complain of very localized chest discomfort in the midchest worse with breathing and no JVD. Heart sounds are normal. No rub, no gallop. Breath sounds are normal. The pacemaker site has healed well. There is no hematoma or soakage. IMPRESSION: 1. Likely neurocardiogenic syncope. 2. Sick sinus syndrome with severe pauses, which is symptomatic, status post pacemaker implantation. SUGGEST: 1. Start Florinef 0.1 mg p.o. daily. 2. Fluids 500 mL x1 over an hour and then ambulate in the hallways. 3. A 2-D echo and Doppler study limited to assess the pericardium. 4. The pacemaker was checked and is within normal limits. PLAN: She will go home today after completion of IV antibiotics and follow up in the office as long as she is not orthostatic and pericardium is within normal limits. I have also ( ) on Florinef 0.1 mg p.o. daily for 3 months.
[2016-09-10 12:11] VITALS: BP 120/52; PULSE 77; TEMP 98.8
--- NOTE | 2016-09-10 12:21 | ECHOF ---
Referral Reason:chest pain MEASUREMENTS -------- HEIGHT: 167.6 cm WEIGHT: 74.8 kg BP: 120/80 FINDINGS -------- Sinus rhythm. Pacemaker Limited Study for pericardial effusion There is a trivial pericardial effusion present. CONCLUSIONS -------- 1. Sinus rhythm. 2. Pacemaker 3. Limited Study for pericardial effusion. 4. There is a trivial pericardial effusion present. SUPPLY PLANNER: Mary Walker RDCS
== END 2016-09-10 18:10 | disposition home or self-care (01) ==
LOC: CATHEP 14:36 → 3OBS 19:09 → CATHEP 09-10 18:10
PROVIDERS: ATTEND Internal Medicine Clinical Cardiac Electrophysiology
DX: I49.5 Sick sinus syndrome (principal); I31.3 Pericardial effusion (noninflammatory); Z87.891 Personal history of nicotine dependence; I86.8 Varicose veins of other specified sites; Z79.899 Other long term (current) drug therapy; Z88.0 Allergy status to penicillin
CPT/HCPCS: 93308; 33208; 71020; C1785; C1898; J2250; J2001; J3010; Q9967

== ENCOUNTER 2016-10-25 09:26 | Emergency (ER) | payer BC ==
[2016-10-25] MEDS ORDERED: SODIUM CHLORIDE 0.9% 500 ML IV STA (10:39)
[2016-10-25 11:05] LABS: Basophils % (A) 1 %; CHCM 34.3; Eosinophils # (A) 0.1 k/uL (0-0.7); Eosinophils % (A) 1 %; HCT 36.8 % (34.0-46.0); HDW 2.46; HGB 12.7 gm/dL (11.4-16.0); Luc # (Auto) 0.09; Luc % (Auto) 1; Lymphocytes # (A) 0.9 k/uL (1.0-4.8); Lymphocytes % (A) 14 %; MCH 31.3 pg (25.0-35.0); MCHC 34.5 g/dL (31.0-37.0); MCV 90.9 fL (80.0-100.0); Mean Platelet Volume 7.7; Monocytes # (A) 0.2 k/uL (0-1.0); Monocytes % (A) 4 %; Neutrophils # (A) 5.1 k/uL (1.3-7.7); Neutrophils % (A) 79 %; RBC 4.05 m/uL (3.80-5.40); RDW 12.8 % (11.5-15.5); WBC 6.5 k/uL (3.8-10.6); WBC (Perox) 6.46
[2016-10-25 11:13] LABS: Anion Gap 9 mmol/L; Blood Urea Nitrogen 15 mg/dL (7-17); Calcium 9.4 mg/dL (8.4-10.2); Carbon Dioxide 24 mmol/L (22-30); Chloride 105 mmol/L (98-107); Glucose 116 mg/dL (74-99); Non-African American GFR(MDRD) >60 (>60 ml/min/1.73 sqM); Potassium 4.6 mmol/L (3.5-5.1); Sodium 138 mmol/L (137-145)
[2016-10-25 11:14] LABS: Appearance,Urine Clear (Clear); Bilirubin,Urine Negative (Negative); Glucose,Urine (UA) Negative (Negative); Ketones,Urine Negative (Negative); Leukocyte Esterase,Urine Negative (Negative); Nitrite,Urine Negative (Negative); Protein,Urine Negative (Negative); Specific Gravity,Urine 1.003 (1.001-1.035); UA Billing (MACRO vs. MICRO) CHEM; Urobilinogen,Urine <2.0 mg/dL (<2.0)
--- NOTE | 2016-10-25 11:19 | XR ---
EXAMINATION TYPE: XR chest 2V DATE OF EXAM: 10/25/2016 COMPARISON: 09/10/2016 HISTORY: 51-year-old female syncope TECHNIQUE: Frontal and lateral views FINDINGS: And right anterior chest wall pacemaker generator with right atrial and right ventricular leads. The cardiomediastinal silhouette, aorta, and pulmonary vasculature are within normal limits. Lungs and pl eural spaces are clear. IMPRESSION: No acute cardiopulmonary process.
[2016-10-25 11:36] LABS: Creatine Kinase 79 U/L (30-135)
[2016-10-25 11:50] LABS: Creatine Kinase MB 0.8 ng/mL (0.0-2.4); Troponin I <0.012 ng/mL (0.000-0.034)
[2016-10-25 13:51] VITALS: BP 132/61; PULSE 67; RESP 20; TEMP 98.5
--- NOTE | 2016-10-25 14:05 | ED ---
General Adult HPI - General Chief complaint: Syncope Stated complaint: Syncope Time Seen by Provider: 10/25/16 09:39 Source: patient, EMS, RN notes reviewed Mode of arrival: EMS Limitations: no limitations - History of Present Illness Initial comments: 51-year-old female past medical history of sick sinus syndrome status post pacemaker placement on September 09 presents with syncopal episode. Patient says she felt lightheaded and shaky this morning and then had a syncopal episode. Patient states she woke in a chair. There is no concerns for trauma. Patient did have some nausea but no vomiting. Patient had one episode of diarrhea earlier the day. Denies chest pain denies palpitations. Denies fever or chills. Denies abdominal pain. Denies dysuria. - Related Data Home Medications Medication Instructions Recorded Confirmed clonazePAM [KlonoPIN] 1 mg PO BID PRN 09/03/16 10/25/16 Acetaminophen Tab [Tylenol Tab] 1,000 mg PO Q6HR PRN 10/25/16 10/25/16 Sertraline [Zoloft] 100 mg PO DAILY 10/25/16 10/25/16 traMADol HCL [Ultram] 50 mg PO Q6HR PRN 10/25/16 10/25/16 Allergies Allergy/AdvReac Type Severity Reaction Status Date / Time Penicillins Allergy Unknown Verified 10/25/16 10:03 Childhood Review of Systems ROS Statement: Those systems with pertinent positive or pertinent negative responses have been documented in the HPI. ROS Other: All systems not noted in ROS Statement are negative. Past Medical History Past Medical History: No Reported History Additional Past Medical History / Comment(s): sick sinus syndrome. 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 History of Any Multi-Drug Resistant Organisms: None Reported Past Surgical History: Orthopedic Surgery, Pacemaker, Tonsillectomy Additional Past Surgical History / Comment(s): Rt hand surgery Past Anesthesia/Blood Transfusion Reactions: No Reported Reaction Past Psychological History: Anxiety, Depression Smoking Status: Former smoker - Past Family History Father Family Medical History: Cancer General Exam Limitations: no limitations Course Vital Signs 10/25/16 10/25/16 10/25/16 09:42 12:48 13:50 Temperature 97.9 F 98.5 F Pulse Rate 70 65 67 Respiratory 18 18 20 Rate Blood Pressure 152/70 124/58 132/61 O2 Sat by Pulse 96 97 97 Oximetry - Consultations Consultation #1: On reevaluation patient is asymptomatic. She continues to have no chest pain, denies palpitations, denies lightheadedness at this time. EKG Findings - EKG Comments: EKG Findings:: EKG is normal sinus rhythm with a ventricular is 72, NV interval 172, QRS duration 78, QTC is 490, there is no ST segment elevation or depression , no T-wave abnormality. Medical Decision Making - Medical Decision Making 51-year-old female with history sick sinus syndrome status post pacemaker on September 09 of the shoulder which was 2 months ago. Presenting with syncopal episode. Patient had associated nausea and lightheadedness prior to episode. She denies chest pain or palpitations. Workup including CBC, BMP, cardiac enzymes and urinalysis is all within normal limits. EKG is unremarkable normal sinus rhythm, non-paced. Chest x-ray shows no acute process. Case is discussed with the patient's photographic artist who recommends she be discharged and will be presented to his office for pacemaker interrogation and evaluation. Patient and her are agreeable with this plan. - Lab Data Result diagrams: 10/25/16 09:45 10/25/16 09:45 Lab Results 10/25/16 10/25/16 10/25/16 Range/Units 09:45 09:45 09:45 WBC 6.5 (3.8-10.6) k/uL RBC 4.05 (3.80-5.40) m/uL Hgb 12.7 (11.4-16.0) gm/dL Hct 36.8 (34.0-46.0) % MCV 90.9 (80.0-100.0) fL MCH 31.3 (25.0-35.0) pg MCHC 34.5 (31.0-37.0) g/dL RDW 12.8 (11.5-15.5) % Plt Count 214 (150-450) k/uL Neutrophils % 79 % Lymphocytes % 14 % Monocytes % 4 % Eosinophils % 1 % Basophils % 1 % Neutrophils # 5.1 (1.3-7.7) k/uL Lymphocytes # 0.9 L (1.0-4.8) k/uL Monocytes # 0.2 (0-1.0) k/uL Eosinophils # 0.1 (0-0.7) k/uL Basophils # 0.0 (0-0.2) k/uL Sodium 138 (137-145) mmol/L Potassium 4.6 (3.5-5.1) mmol/L Chloride 105 (98-107) mmol/L Carbon Dioxide 24 (22-30) mmol/L Anion Gap 9 mmol/L BUN 15 (7-17) mg/dL Creatinine 0.68 (0.52-1.04) mg/dL Est GFR (MDRD) Af Amer >60 (>60 ml/min/1.73 sqM) Est GFR (MDRD) Non-Af >60 (>60 ml/min/1.73 sqM) Glucose 116 H (74-99) mg/dL Calcium 9.4 (8.4-10.2) mg/dL Total Creatine Kinase 79 (30-135) U/L CK-MB (CK-2) 0.8 (0.0-2.4) ng/mL CK-MB (CK-2) Rel Index 1.0 Troponin I <0.012 (0.000-0.034) ng/mL Urine Color Urine Appearance (Clear) Urine pH (5.0-8.0) Ur Specific [place] (1.001-1.035) Urine Protein (Negative) Urine Glucose (UA) (Negative) Urine Ketones (Negative) Urine Blood (Negative) Urine Nitrite (Negative) Urine Bilirubin (Negative) Urine Urobilinogen (<2.0) mg/dL Ur Leukocyte Esterase (Negative) 10/25/16 Range/Units 10:50 WBC (3.8-10.6) k/uL RBC (3.80-5.40) m/uL Hgb (11.4-16.0) gm/dL Hct (34.0-46.0) % MCV (80.0-100.0) fL MCH (25.0-35.0) pg MCHC (31.0-37.0) g/dL RDW (11.5-15.5) % Plt Count (150-450) k/uL Neutrophils % % Lymphocytes % % Monocytes % % Eosinophils % % Basophils % % Neutrophils # (1.3-7.7) k/uL Lymphocytes # (1.0-4.8) k/uL Monocytes # (0-1.0) k/uL Eosinophils # (0-0.7) k/uL Basophils # (0-0.2) k/uL Sodium (137-145) mmol/L Potassium (3.5-5.1) mmol/L Chloride (98-107) mmol/L Carbon Dioxide (22-30) mmol/L Anion Gap mmol/L BUN (7-17) mg/dL Creatinine (0.52-1.04) mg/dL Est GFR (MDRD) Af Amer (>60 ml/min/1.73 sqM) Est GFR (MDRD) Non-Af (>60 ml/min/1.73 sqM) Glucose (74-99) mg/dL Calcium (8.4-10.2) mg/dL Total Creatine Kinase (30-135) U/L CK-MB (CK-2) (0.0-2.4) ng/mL CK-MB (CK-2) Rel Index Troponin I (0.000-0.034) ng/mL Urine Color Colorless Urine Appearance Clear (Clear) Urine pH 7.0 (5.0-8.0) Ur Specific [place] 1.003 (1.001-1.035) Urine Protein Negative (Negative) Urine Glucose (UA) Negative (Negative) Urine Ketones Negative (Negative) Urine Blood Negative (Negative) Urine Nitrite Negative (Negative) Urine Bilirubin Negative (Negative) Urine Urobilinogen <2.0 (<2.0) mg/dL Ur Leukocyte Esterase Negative (Negative) Disposition Clinical Impression: Syncope, Vasovagal syncope Disposition: HOME SELF-CARE Condition: Stable Instructions: Syncope (ED) Additional Instructions: Patient should follow-up with her photographic artist immediately after leaving the emergency department. Referrals: Ofelia Thomas MD [Primary Care Provider] - 1-2 days Jessee Orellana MD [STAFF PHYSICIAN] - 1-2 days Time of Disposition: 13:30
== END 2016-10-25 14:49 | disposition home or self-care (01) ==
LOC: EC 09:26
DX: R55 Syncope and collapse (principal); R11.0 Nausea; R19.7 Diarrhea, unspecified; F32.9 Major depressive disorder, single episode, unspecified; F41.9 Anxiety disorder, unspecified; Z87.891 Personal history of nicotine dependence; Z79.899 Other long term (current) drug therapy; Z88.0 Allergy status to penicillin
CPT/HCPCS: 36415; 71020; 80048; 81003; 82550; 82553; 84484; 85025; 93005; 99285

== ENCOUNTER 2017-02-04 16:49 | Emergency (ER) | payer BC ==
[2017-02-04] MEDS ORDERED: SODIUM CHLORIDE 0.9% 1,000 ML IV STA (17:01)
--- NOTE | 2017-02-04 17:15 | ED ---
General Adult HPI - General Chief complaint: Arrhythmia/Palpitations Stated complaint: Irregular Heartbeats/Pacemaker Time Seen by Provider: 02/04/17 17:01 Source: patient, RN notes reviewed, old records reviewed Mode of arrival: wheelchair Limitations: no limitations - History of Present Illness Initial comments: This is a 51-year-old female to the ER for evaluation. Patient presents for evaluation of arrhythmia. Patient states her primary he was liquids elevated. Patient has history of arrhythmia history of sick sinus syndrome with pacemaker. Patient was working out today doing her normal workout and states her heart rate ramped up and stayed elevated for quite some time. Patient did not feel he should pass out. But states the heart rate was concerning to her. She denies chest pain no shortness of breath at this time. States her heart rate feels at this time normal. - Related Data Home Medications Medication Instructions Recorded Confirmed clonazePAM [KlonoPIN] 1 mg PO BID PRN 09/03/16 02/04/17 Acetaminophen Tab [Tylenol Tab] 1,000 mg PO Q6HR PRN 10/25/16 02/04/17 Allergies Allergy/AdvReac Type Severity Reaction Status Date / Time loratadine [From Claritin] Allergy Unknown Verified 02/04/17 17:13 Penicillins Allergy Unknown Verified 02/04/17 17:13 Childhood cyclobenzaprine AdvReac Rapid Verified 02/04/17 17:13 [From Flexeril] Heart Rate fludrocortisone AdvReac MOOD Verified 02/04/17 17:13 CHANGES midodrine AdvReac HEART RATE Verified 02/04/17 17:13 DECREASES Review of Systems ROS Statement: Those systems with pertinent positive or pertinent negative responses have been documented in the HPI. ROS Other: All systems not noted in ROS Statement are negative. Past Medical History Past Medical History: No Reported History Additional Past Medical History / Comment(s): sick sinus syndrome. 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, PACEMAKER History of Any Multi-Drug Resistant Organisms: None Reported Past Surgical History: Orthopedic Surgery, Pacemaker, Tonsillectomy Additional Past Surgical History / Comment(s): Rt hand surgery Past Anesthesia/Blood Transfusion Reactions: No Reported Reaction Past Psychological History: Anxiety, Depression Smoking Status: Former smoker - Past Family History Father Family Medical History: Cancer General Exam Limitations: no limitations General appearance: alert, in no apparent distress Head exam: Present: atraumatic, normocephalic, normal inspection Eye exam: Present: normal appearance, PERRL, EOMI. Absent: scleral icterus, conjunctival injection, periorbital swelling ENT exam: Present: normal exam, mucous membranes moist Neck exam: Present: normal inspection. Absent: tenderness, meningismus, lymphadenopathy Respiratory exam: Present: normal lung sounds bilaterally. Absent: respiratory distress, wheezes, rales, rhonchi, stridor Cardiovascular Exam: Present: regular rate, normal rhythm, normal heart sounds. Absent: systolic murmur, diastolic murmur, rubs, gallop, clicks GI/Abdominal exam: Present: soft, normal bowel sounds. Absent: distended, tenderness, guarding, rebound, rigid Extremities exam: Present: normal inspection, full ROM, normal capillary refill. Absent: tenderness, pedal edema, joint swelling, calf tenderness Back exam: Present: normal inspection Neurological exam: Present: alert, oriented X3, CN II-XII intact Psychiatric exam: Present: normal affect, normal mood Skin exam: Present: warm, dry, intact, normal color. Absent: rash Course Vital Signs 02/04/17 02/04/17 02/04/17 16:50 17:08 18:57 Temperature 98.1 F Pulse Rate 96 76 81 Respiratory 18 18 16 Rate Blood Pressure 147/71 149/90 136/69 O2 Sat by Pulse 99 98 96 Oximetry 02/04/17 19:16 Temperature 97.8 F Pulse Rate 81 Respiratory 16 Rate Blood Pressure 122/73 O2 Sat by Pulse 96 Oximetry - Reevaluation(s) Reevaluation #1: 02/04/17 18:23 Patient has no evidence of arrhythmia here in the ER EKG Findings - EKG Comments: EKG Findings:: EKG shows normal sinus rhythm rate of 71, ID 160, QRS 90, QTC 395 Medical Decision Making - Medical Decision Making 51 female tear with history of arrhythmia coming in with palpitations. At this point patient feels well, labwork is normal, EKG rhythm strip are normal. Patient will be discharged home - Lab Data Result diagrams: 02/04/17 17:13 02/04/17 17:13 Lab Results 02/04/17 02/04/17 02/04/17 Range/Units 17:13 17:13 17:13 WBC 9.3 (3.8-10.6) k/uL RBC 4.36 (3.80-5.40) m/uL Hgb 12.9 (11.4-16.0) gm/dL Hct 39.6 (34.0-46.0) % MCV 90.8 (80.0-100.0) fL MCH 29.6 (25.0-35.0) pg MCHC 32.6 (31.0-37.0) g/dL RDW 12.4 (11.5-15.5) % Plt Count 267 (150-450) k/uL Neutrophils % 84 % Lymphocytes % 11 % Monocytes % 3 % Eosinophils % 0 % Basophils % 0 % Neutrophils # 7.7 (1.3-7.7) k/uL Lymphocytes # 1.1 (1.0-4.8) k/uL Monocytes # 0.3 (0-1.0) k/uL Eosinophils # 0.0 (0-0.7) k/uL Basophils # 0.0 (0-0.2) k/uL PT (9.0-12.0) sec INR (<1.2) APTT (22.0-30.0) sec Sodium 140 (137-145) mmol/L Potassium 4.2 (3.5-5.1) mmol/L Chloride 107 (98-107) mmol/L Carbon Dioxide 22 (22-30) mmol/L Anion Gap 11 mmol/L BUN 15 (7-17) mg/dL Creatinine 0.60 (0.52-1.04) mg/dL Est GFR (MDRD) Af Amer >60 (>60 ml/min/1.73 sqM) Est GFR (MDRD) Non-Af >60 (>60 ml/min/1.73 sqM) Glucose 90 (74-99) mg/dL Calcium 10.0 (8.4-10.2) mg/dL Phosphorus 3.4 (2.5-4.5) mg/dL Magnesium 1.7 (1.6-2.3) mg/dL Total Bilirubin 0.3 (0.2-1.3) mg/dL AST 38 H (14-36) U/L ALT 37 (9-52) U/L Alkaline Phosphatase 111 (38-126) U/L Total Creatine Kinase 278 H (30-135) U/L CK-MB (CK-2) 3.7 H* (0.0-2.4) ng/mL CK-MB (CK-2) Rel Index 1.3 Troponin I <0.012 (0.000-0.034) ng/mL Total Protein 7.5 (6.3-8.2) g/dL Albumin 4.4 (3.5-5.0) g/dL TSH 1.290 (0.465-4.680) mIU/L 02/04/17 Range/Units 17:13 WBC (3.8-10.6) k/uL RBC (3.80-5.40) m/uL Hgb (11.4-16.0) gm/dL Hct (34.0-46.0) % MCV (80.0-100.0) fL MCH (25.0-35.0) pg MCHC (31.0-37.0) g/dL RDW (11.5-15.5) % Plt Count (150-450) k/uL Neutrophils % % Lymphocytes % % Monocytes % % Eosinophils % % Basophils % % Neutrophils # (1.3-7.7) k/uL Lymphocytes # (1.0-4.8) k/uL Monocytes # (0-1.0) k/uL Eosinophils # (0-0.7) k/uL Basophils # (0-0.2) k/uL PT 10.8 (9.0-12.0) sec INR 1.1 (<1.2) APTT 23.8 (22.0-30.0) sec Sodium (137-145) mmol/L Potassium (3.5-5.1) mmol/L Chloride (98-107) mmol/L Carbon Dioxide (22-30) mmol/L Anion Gap mmol/L BUN (7-17) mg/dL Creatinine (0.52-1.04) mg/dL Est GFR (MDRD) Af Amer (>60 ml/min/1.73 sqM) Est GFR (MDRD) Non-Af (>60 ml/min/1.73 sqM) Glucose (74-99) mg/dL Calcium (8.4-10.2) mg/dL Phosphorus (2.5-4.5) mg/dL Magnesium (1.6-2.3) mg/dL Total Bilirubin (0.2-1.3) mg/dL AST (14-36) U/L ALT (9-52) U/L Alkaline Phosphatase (38-126) U/L Total Creatine Kinase (30-135) U/L CK-MB (CK-2) (0.0-2.4) ng/mL CK-MB (CK-2) Rel Index Troponin I (0.000-0.034) ng/mL Total Protein (6.3-8.2) g/dL Albumin (3.5-5.0) g/dL TSH (0.465-4.680) mIU/L Disposition Clinical Impression: Palpitations Disposition: HOME SELF-CARE Condition: Good Instructions: Palpitations (ED) Referrals: Ofelia Thomas MD [Primary Care Provider] - 1-2 days
[2017-02-04 17:44] LABS: ALT 37 U/L (9-52); AST 38 U/L (14-36); Alkaline Phosphatase 111 U/L (38-126); Anion Gap 11 mmol/L; Blood Urea Nitrogen 15 mg/dL (7-17); Carbon Dioxide 22 mmol/L (22-30); Chloride 107 mmol/L (98-107); Glucose 90 mg/dL (74-99); Magnesium 1.7 mg/dL (1.6-2.3); Non-African American GFR(MDRD) >60 (>60 ml/min/1.73 sqM); Phosphorous 3.4 mg/dL (2.5-4.5); Potassium 4.2 mmol/L (3.5-5.1); Sodium 140 mmol/L (137-145); Total Bilirubin 0.3 mg/dL (0.2-1.3); Total Protein 7.5 g/dL (6.3-8.2)
[2017-02-04 17:46] LABS: Basophils % (A) 0 %; CH 30.7; CHCM 33.9; Eosinophils % (A) 0 %; HCT 39.6 % (34.0-46.0); HDW 2.49; HGB 12.9 gm/dL (11.4-16.0); Luc # (Auto) 0.09; Luc % (Auto) 1; Lymphocytes # (A) 1.1 k/uL (1.0-4.8); Lymphocytes % (A) 11 %; MCH 29.6 pg (25.0-35.0); MCHC 32.6 g/dL (31.0-37.0); MCV 90.8 fL (80.0-100.0); Mean Platelet Volume 7.1; Monocytes # (A) 0.3 k/uL (0-1.0); Monocytes % (A) 3 %; Neutrophils # (A) 7.7 k/uL (1.3-7.7); Neutrophils % (A) 84 %; RBC 4.36 m/uL (3.80-5.40); RDW 12.4 % (11.5-15.5); WBC 9.3 k/uL (3.8-10.6); WBC (Perox) 9.03
[2017-02-04 17:54] LABS: Creatine Kinase 278 U/L (30-135)
[2017-02-04 17:59] LABS: INR 1.1 (<1.2); Partial Thromboplastin Time 23.8 sec (22.0-30.0); Prothrombin Time 10.8 sec (9.0-12.0)
[2017-02-04 18:07] LABS: Troponin I <0.012 ng/mL (0.000-0.034)
[2017-02-04 18:10] LABS: Creatine Kinase MB 3.7 ng/mL (0.0-2.4)
[2017-02-04 18:59] VITALS: PULSE 81; RESP 16
[2017-02-04 19:17] VITALS: BP 122/73; TEMP 97.8
== END 2017-02-04 19:21 | disposition home or self-care (01) ==
LOC: EC 16:49
DX: R00.2 Palpitations (principal); Z87.891 Personal history of nicotine dependence; Z88.0 Allergy status to penicillin; Z88.8 Allergy status to other drugs, medicaments and biological substances; Z95.0 Presence of cardiac pacemaker
CPT/HCPCS: 36415; 80053; 82550; 82553; 83735; 84100; 84443; 84484; 85025; 85610; 85730; 93005; 96360; 99285

== ENCOUNTER → 2017-06-13 | Outpatient (CLI) | payer BC ==
--- NOTE | 2017-06-14 11:00 | MM ---
Reason for exam: screening (asymptomatic). Baseline mammogram. History: Patient is postmenopausal. Physical Findings: Nurse did not find any significant physical abnormalities on exam. MG 3D Screening Mammo W/Cad Bilateral CC and MLO view(s) were taken. The breast tissue is heterogeneously dense. This may lower the sensitivity of mammography. Finding: There is a 6 mm equal density (isodense), indistinct oval mass located 3 cm from the nipple in the 12 o'clock middle position of the left breast. These results were verbally communicated with the patient and result sheet given to the patient on 06/13/17. ASSESSMENT: Incomplete: need additional imaging evaluation, BI-RAD 0 RECOMMENDATION: Ultrasound of the left breast. [facility] will attempt to contact patient to return for ultrasound.
--- NOTE | 2017-06-14 11:02 | USB ---
Reason for exam: additional evaluation requested from abnormal screening. History: Patient is postmenopausal. Physical Findings: Breast exam preformed at baseline screening. US Breast Workup Limited LT Left breast ultrasound demonstrates a 0.5 x 0.3 x 0.8cm oval, solid, hypoechoic lesion at 12 o'clock for which a biopsy is recommended and a 0.3 x 0.2 x 0.3cm oval, cystic lesion at 12 o'clock. These results were verbally communicated with the patient and result sheet given to the patient on 06/13/17. ASSESSMENT: Suspicious, BI-RAD 4 RECOMMENDATION: Ultrasound core biopsy of the left breast. Called Dr. Eddy with mammographic findings and has scheduled an appointment for the patient for 06/14/17 at 11:[address] Verdugo. PRELIMINARY REPORT CALLED AND FAXED TO DR. VERDUGO ON 06/14/17.
== END | disposition home or self-care (01) ==
LOC: RADMAMWWP 15:38
PROVIDERS: ATTEND Obstetrics & Gynecology
DX: Z12.31 Encounter for screening mammogram for malignant neoplasm of breast (principal); R92.8 Other abnormal and inconclusive findings on diagnostic imaging of breast
CPT/HCPCS: 77063; 77067

== ENCOUNTER → 2018-05-03 | Outpatient (CLI) | payer BC ==
--- NOTE | 2018-05-04 08:42 | XR ---
Left shoulder HISTORY: Left shoulder pain Left lung apex as visualized is normal. Bone mineralization, joint spaces and alignment are maintaine d. No fracture or dislocation. IMPRESSION: Normal left shoulder.
== END | disposition home or self-care (01) ==
LOC: RADXRMAIN 17:31
PROVIDERS: ATTEND Nurse Practitioner Family
DX: M25.512 Pain in left shoulder (principal)

== ENCOUNTER → 2018-06-23 | Outpatient (CLI) | payer BC ==
--- NOTE | 2018-06-26 10:18 | MM ---
Reason for exam: screening (asymptomatic). Last mammogram was performed 1 year ago. History: Patient is postmenopausal. Physical Findings: A clinical breast exam by your physician is recommended on an annual basis and results should be correlated with mammographic findings. MG 3D Screening Mammo W/Cad Bilateral CC and MLO view(s) were taken. Prior study comparison: June 13, 2017, bilateral MG 3d screening mammo w/cad. The breast tissue is heterogeneously dense. This may lower the sensitivity of mammography. There is no discrete abnormality. No significant changes when compared with prior studies. ASSESSMENT: Benign, BI-RAD 2 RECOMMENDATION: Routine screening mammogram of both breasts in 1 year.
== END | disposition home or self-care (01) ==
LOC: RADMAMWWP 16:25
PROVIDERS: ATTEND Family Medicine
DX: Z12.31 Encounter for screening mammogram for malignant neoplasm of breast (principal)
CPT/HCPCS: 77063; 77067

== ENCOUNTER → 2018-08-29 | Outpatient (CLI) | payer BC ==
--- NOTE | 2018-08-30 04:09 | CONS ---
CONSULTATION REASON FOR CONSULTATION: Poor sleep quality. This is a 53-year-old female patient who has had issues with chronic insomnia for many years. Since her teenage years, the patient did not have a good night's sleep. She has been averaging somewhere between 4 and 6 hours of sleep. This made her take some naps during the day. Her sleep quality currently is poor, and at the same time she is somewhat having an irregular sleep-wake cycle. In general she tries to go to bed around 10 p.m. It takes her sometimes up to 2 hours to fall asleep. She gets out of bed around 6:00 in the morning. More recently, her noted that she is snoring and she is waking up from sleep panicky and sometimes gasping for air. As such, her sleep has been fragmented. She came in for further evaluation in this regard. The patient has been diagnosed having sick sinus syndrome, and the patient has a pacemaker in place. She has been told that the pacemaker has been functioning normally. There have been no reported arrhythmias. She is under the care of Dr. Orellana for now. No history of any congestive heart failure. No history of any coronary artery disease. No history of atrial fibrillation. No restlessness in the lower extremities. She is quite anxious and she has been given Klonopin. She is taking Klonopin 2 mg on a p.r.n. basis. She has chronic migraine headaches, for which she takes sumatriptan. She has gained around 10 to 15 pounds over the past few years. Current [place] Score is 10. No family history of sleep apnea. PAST MEDICAL HISTORY: 1. Sick sinus syndrome. The patient has a pacemaker in place. 2. Migraines. 3. Chronic anxiety. PAST SURGICAL HISTORY: Past surgical history includes a birthmark and cyst removal on the hand and the wrist area and the pacemaker insertion. DRUG ALLERGIES: 1. MIDODRINE. 2. PENICILLIN. 3. FLEXERIL. 4. FLUDROCORTISONE. SOCIAL HISTORY: The patient is a nonsmoker. No history of alcoholism. No history of IV drugs. FAMILY HISTORY: Negative for sleep apnea. OUTPATIENT MEDICATIONS: Outpatient medications include sumatriptan p.r.n. and Klonopin p.r.n. REVIEW OF SYSTEMS: Fourteen-point review of systems was done. Positive findings were all mentioned above in the history of present illness. No history of any nighttime chest pain or shortness of breath. No history of any nighttime heartburn. No nocturia. No grinding of the teeth. No sleepwalking or sleeptalking. No palpitations at nighttime. No heartburn. No restlessness in the lower extremities. PHYSICAL EXAMINATION: BP is 121/81, pulse 68, respirations 16, temperature 97.9. Height is 5 feet 5 inches, weight 167. [place] score is 10. Weight 167. BMI 27.3. Neck size 14. Saturation 96% on room air. GENERAL APPEARANCE: Calm, comfortable. Head is atraumatic, normocephalic. NECK: Supple. No JVD. No goiter or neck masses. LUNGS: Clear to auscultation. HEART: Heart sounds are regular rate and rhythm. Normal S1, S2. No S3, S4. No murmurs. ABDOMEN: Soft and nontender. EXTREMITIES: No edema. No cyanosis or clubbing. Neurologically the patient is alert and oriented x3. No focal neurological deficits. PSYCHIATRIC: Negative for depression. Positive anxiety. IMPRESSION: 1. Fragmented sleep, probably due to a combination of insomnia and obstructive sleep apnea. There may be a component of anxiety/panic attack. Doubt cardiac arrhythmias contributing to this patient's sleep fragmentation. 2. Poor sleep hygiene measures. 3. Chronic insomnia. 4. History of sick sinus syndrome with a pacemaker insertion. 5. History of migraine. PLAN: 1. Discussed issues related to the patient's sleep hygiene. 2. Will eliminate naps during the day. 3. Will consolidate most of her sleep hours between midnight and 6 a.m. in the morning. 4. Ideally I would like this patient to come into the sleep center to undergo a full polysomnogram. She claims that she will not be able to fall asleep here in the sleep center. At the start we will start off with a home sleep study to rule out the possibility of sleep apnea. If the results are not satisfactory, will bring this patient at a later stage to the sleep center to undergo a full polysomnogram. Will continue to follow. AMY / BRUNILDAN: [id number] /
== END | disposition home or self-care (01) ==
LOC: SLEEP 15:57
PROVIDERS: ATTEND Internal Medicine Critical Care Medicine
DX: F51.04 Psychophysiologic insomnia (principal); Z86.69 Personal history of other diseases of the nervous system and sense organs; Z86.79 Personal history of other diseases of the circulatory system; Z95.0 Presence of cardiac pacemaker
CPT/HCPCS: 99211

== ENCOUNTER 2019-01-07 10:01 | Emergency (ER) | payer BC ==
[2019-01-07 10:10] VITALS: BP 135/80; PULSE 69; RESP 18; TEMP 98.3
[2019-01-07] MEDS ORDERED: ACET/COD 300 MG/30 MG STARTER PACK 6 TAB BTL PO STA (10:23)
--- NOTE | 2019-01-07 10:29 | ED ---
Fall HPI - General Chief Complaint: Fall Stated Complaint: Fall Time Seen by Provider: 01/07/19 10:14 Source: patient, RN notes reviewed, old records reviewed Mode of arrival: wheelchair - History of Present Illness Initial Comments: Patient is a 53-year-old female, she presents emergency department today with a slip and falling down 4 stairs. Patient reports that she slipped and went head over heels down the stairs. She complains of headache, dizziness, as well as some neck pain. Patient reports she has a pacemaker and she fell onto the front of her chest hitting her pacemaker as well which she is concerned about. She also complains of left knee and foot pain. Patient states that she is on any blood thinners. She complains of some dizziness, she questions loss of consciousness. Her came to her help shortly after she fell. Patient reports that she was moving a gate at the top of the stairs that her dogs normally go through. She reports that it was slippery when her feet slipped and fell from under her and she went tumbling forward. - Related Data Home Medications Medication Instructions Recorded Confirmed clonazePAM [KlonoPIN] 1 mg PO BID PRN 09/03/16 02/04/17 Acetaminophen Tab [Tylenol Tab] 1,000 mg PO Q6HR PRN 10/25/16 02/04/17 Allergies Allergy/AdvReac Type Severity Reaction Status Date / Time loratadine [From Claritin] Allergy Unknown Verified 01/07/19 10:11 Penicillins Allergy Unknown Verified 01/07/19 10:11 Childhood cyclobenzaprine AdvReac Rapid Verified 01/07/19 10:11 [From Flexeril] Heart Rate fludrocortisone AdvReac MOOD Verified 01/07/19 10:11 CHANGES midodrine AdvReac HEART RATE Verified 01/07/19 10:11 DECREASES Review of Systems ROS Statement: Those systems with pertinent positive or pertinent negative responses have been documented in the HPI. ROS Other: All systems not noted in ROS Statement are negative. Past Medical History Past Medical History: No Reported History Additional Past Medical History / Comment(s): sick sinus syndrome. 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 Alert and oriented 3. Limitations: no limitations General appearance: alert, in no apparent distress Head exam: Present: atraumatic, normocephalic, normal inspection Eye exam: Present: normal appearance, PERRL, EOMI. Absent: scleral icterus, conjunctival injection, periorbital swelling ENT exam: Present: normal exam, mucous membranes moist Neck exam: Present: normal inspection, tenderness (cervical spine C2. ). Absent: meningismus, lymphadenopathy Respiratory exam: Present: normal lung sounds bilaterally. Absent: respiratory distress, wheezes, rales, rhonchi, stridor Cardiovascular Exam: Present: regular rate, normal rhythm, normal heart sounds, other (tenderness over pacemaker site on R side chest wall. . No significant c ontusions at this time. ). Absent: systolic murmur, diastolic murmur, rubs, gallop, clicks GI/Abdominal exam: Present: soft, normal bowel sounds. Absent: distended, tenderness, guarding, rebound, rigid Left Knee exam: Present: tenderness (over lateral meniscus. ), ecchymosis (over patella). Absent: normal inspection Lower Leg exam: Present: normal inspection, full ROM Ankle exam: Present: normal inspection, tenderness (over lateral malleolus) Foot/Toe exam: Present: full ROM, tenderness, swelling (over proximal 5th metatarsal). Absent: normal inspection Gait: observed and normal Back exam: Present: normal inspection Neurological exam: Present: alert, oriented X3, CN II-XII intact Psychiatric exam: Present: normal affect, normal mood Skin exam: Present: warm, dry, intact, normal color. Absent: rash Course Vital Signs 01/07/19 10:09 Temperature 98.3 F Pulse Rate 69 Respiratory 18 Rate Blood Pressure 135/80 O2 Sat by Pulse 98 Oximetry Medical Decision Making - Medical Decision Making This is a 53-year-old female presents after tripping fall and falling down [place] 4 sutures over heels. She went ahead neck pain, left knee and left ankle pain. She also reports that she fell onto her chest and was concerned for hitting her pacemaker. EKG shows paced rhythm. Chest x-ray shows normal lead placement. All of her x-rays reviewed negative for any acute process. She does have some swelling over the lateral meniscus of her left knee. Discussed concern for internal drainage. Including meniscal tear. I discussed the Patient was placed in Denys wrap and knee immobilizer. Patient also has some swelling of her left ankle, concern for ankle sprain. Right the Patient for crutches and placed in Denys wrap as well. I discussed the Patient to take Motrin or Tylenol for pain as well as playing ice and warm compresses over the areas that are sore. Patient has been advised she should follow-up with orthopedic. All questions were answered return parameters were discussed. 01/07/19 11:42 EKG shows atrial paced rhythm, abnormal EKG. Ventricular rate of 65 bpm. Level is 24 ms. She temple is 82 ms. QT QTc is 34/399 ms. - Radiology Data Radiology results: report reviewed X-rays x-rays negative for any acute abnormality. The x-rays negative for any acute osseous lesion. Foot x-ray shows no acute fractures. Ankle x-rays negative for any acute process. CT of the C-spine shows no acute osseous lesion. Minimal degenerative changes are noted. CT of the brain shows no acute intracranial normality. Small pineal region cyst. Stable high-density lesion in the third ventricle of the foramen of Gonzalez unchanged from previous. Disposition Clinical Impression: Fall, Concussion, Knee sprain, Ankle sprain Disposition: HOME SELF-CARE Condition: Good Instructions (If sedation given, give patient instructions): Knee Sprain (ED), Ankle Sprain (ED), Concussion (ED) Additional Instructions: Patient is advised to follow-up with accounts payable specialist. Alternate between heat and ice to the areas that are sore. Please use motrin and tylenol and medication as discussed. Please follow up with family doctor if symptoms have not improved over the next two days. Please return to the emergency room if your symptoms increase or worsen or for any other concerns. Is patient prescribed a controlled substance at d/c from ED?: No Referrals: Ofelia Thomas MD [Primary Care Provider] - 1-2 days Yolanda Rangel DO [Doctor of Osteopathic Medicine] - 1-2 days Time of Disposition: 11:45
--- NOTE | 2019-01-07 10:48 | XR ---
EXAMINATION TYPE: XR ankle complete LT , 3 VIEWS DATE OF EXAM ORDERED: 01/07/2019 HISTORY: fall down stairs. COMPARISON: None. FINDINGS: No fracture, dislocation or ankle joint effusion is seen. There is a small, plantar calcan eal spur. IMPRESSION: NO ACUTE OSSEOUS LESION.
--- NOTE | 2019-01-07 10:54 | CT ---
EXAMINATION TYPE: CT brain minerva schneider DATE OF EXAM: 01/07/2019 COMPARISON: Previous gas CT dated 07/07/2016 HISTORY: Fall down stairs CT DLP: 1279.6 mGycm Automated exposure control for dose reduction was used. TECHNIQUE: CT scan of the head and cervical spine are performed without contrast. FINDINGS: BRAIN: A tiny dense 2 to 3 mm lesion is again seen within the third ventricle adjacent to the foramen of Monro. This is unchanged in appearance. I could not exclude tiny colloid cyst. There is a small p ineal region cyst. Central structures are midline. There is no evidence of hydrocephalus. No acute focal lesion, mass ef fect or midline shift is seen. I do not see evidence of intracranial blood. Visualized portions of the paranasal sinuses and mastoids are clear. The bony calvarium is intact. IMPRESSION: 1. NO ACUTE INTRACRANIAL ABNORMALITY. 2. SMALL PINEAL REGION CYST. 3. STABLE HIGH DENSITY LESION IN THE THIRD VENTRICLE NEAR THE FORAMEN OF MONRO UNCHANGED FROM PREVIOU S. CERVICAL SPINE: Visualized portions of the lungs are clear. A bipolar pacemaker is in place. Preverte bral soft tissues appear normal. There is a small reversal of the normal cervical lordosis. Alignment remains normal. Atlantoaxial rel ationships are normal. Vertebral body height is maintained. There is minor hypertrophic spondylosis p resent at C5-6. There is mild uncovertebral joint disease at this level as well. The facets are unrem arkable. No protrusion is seen. No fracture is identified. IMPRESSION: 1. NO ACUTE OSSEOUS LESION. 2. MINIMAL DEGENERATIVE CHANGE.
--- NOTE | 2019-01-07 10:55 | XR ---
EXAMINATION TYPE: XR foot limited LT , 2 VIEWS DATE OF EXAM ORDERED: 01/07/2019 HISTORY: fall down stairs. COMPARISON: None. FINDINGS: No fracture or dislocation is seen. Note is made of a tiny plantar calcaneal spur. IMPRESSION: NO ACUTE OSSEOUS LESION.
--- NOTE | 2019-01-07 11:03 | XR ---
EXAMINATION TYPE: XR knee complete LT , 3 VIEWS DATE OF EXAM ORDERED: 01/07/2019 HISTORY: fall down stairs. COMPARISON: None. FINDINGS: No fracture, dislocation or joint effusion is seen. IMPRESSION: NO ACUTE OSSEOUS LESION.
--- NOTE | 2019-01-07 11:04 | XR ---
EXAMINATION TYPE: XR chest 2V DATE OF EXAM: 01/07/2019 HISTORY: fall down stairs. REFERENCE: Previous study dated 10/25/2016. FINDINGS: There is a bipolar pacemaker place on the right. Heart size upper limits of normal. The lungs are clear. Pleural spaces are clear. No fracture is seen . IMPRESSION: NO ACUTE ABNORMALITY.
== END 2019-01-07 12:14 | disposition home or self-care (01) ==
LOC: EC 10:01
DX: S06.0X0A Concussion without loss of consciousness, initial encounter (principal); S83.92XA Sprain of unspecified site of left knee, initial encounter; S93.402A Sprain of unspecified ligament of left ankle, initial encounter; R94.31 Abnormal electrocardiogram [ECG] [EKG]; M54.2 Cervicalgia; Z87.891 Personal history of nicotine dependence; Z88.0 Allergy status to penicillin; Z88.8 Allergy status to other drugs, medicaments and biological substances; Z95.0 Presence of cardiac pacemaker; W10.9XXA Fall (on) (from) unspecified stairs and steps, initial encounter
CPT/HCPCS: 70450; 71046; 72125; 93005; 99284

== ENCOUNTER 2019-09-12 23:34 | Emergency (ER) | payer BC ==
[2019-09-12 23:42] VITALS: BP 139/81; TEMP 98.1
[2019-09-13] MEDS ORDERED: DIPH,PERTUS(ACELL)TETVAC-LF 0.5 ML VIAL IM ONE (00:04)
[2019-09-13] MEDS ORDERED: ACETAMINOPHEN TAB 500 MG TAB PO STA (00:04)
--- NOTE | 2019-09-13 00:31 | ED ---
Wound/Laceration HPI - General Chief Complaint: Wound/Laceration Stated Complaint: Facial injury Time Seen by Provider: 09/12/19 23:57 Source: patient Mode of arrival: ambulatory Limitations: no limitations - History of Present Illness Initial Comments: 54-year-old female patient presents to the emergency department today for evaluation of facial injury. Patient states approximately 20 minutes prior to arrival her dog jumped up on a gate causing the gait to flip up and hit her in the right side of her face. She denies any loss of consciousness with this injury. States she does have a laceration to the right cheek. She is experiencing right cheek and nasal discomfort. Denies any nasal bleeding. Denies any blurred or double vision. Denies any current headache. She is unsure when her last tetanus vaccine was given. Patient denies any neck pain, back pain, chest pain, shortness of breath, dizziness, weakness, abdominal pain, nausea, vomiting, or difficulties with bowel movements or urination. - Related Data Home Medications Medication Instructions Recorded Confirmed clonazePAM [KlonoPIN] 1 mg PO BID PRN 09/03/16 02/04/17 Acetaminophen Tab [Tylenol Tab] 1,000 mg PO Q6HR PRN 10/25/16 02/04/17 Allergies Allergy/AdvReac Type Severity Reaction Status Date / Time loratadine [From Claritin] Allergy Unknown Verified 09/12/19 23:42 Penicillins Allergy Unknown Verified 09/12/19 23:42 Childhood cyclobenzaprine AdvReac Rapid Verified 09/12/19 23:42 [From Flexeril] Heart Rate fludrocortisone AdvReac MOOD Verified 09/12/19 23:42 CHANGES midodrine AdvReac HEART RATE Verified 09/12/19 23:42 DECREASES Review of Systems ROS Statement: Those systems with pertinent positive or pertinent negative responses have been documented in the HPI. ROS Other: All systems not noted in ROS Statement are negative. Past Medical History Past Medical History: No Reported History Additional Past Medical History / Comment(s): sick sinus syndrome. 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, PACEMAKER History of Any Multi-Drug Resistant Organisms: None Reported Past Surgical History: Orthopedic Surgery, Pacemaker, Tonsillectomy Additional Past Surgical History / Comment(s): Rt hand surgery Past Anesthesia/Blood Transfusion Reactions: No Reported Reaction Past Psychological History: Anxiety, Depression Smoking Status: Former smoker Past Alcohol Use History: Occasional Past Drug Use History: None Reported - Past Family History Father Family Medical History: Cancer General Exam Limitations: no limitations General appearance: alert, in no apparent distress, other (This is a well- developed, well-nourished adult female patient in no acute distress. Vital signs upon presentation are temperature is 98.1F, pulse 75, respirations 18, blood pressure 139/81, pulse ox 100% on room air.) Head exam: Present: other (There is laceration noted over the right maxillary region, there is soft tissue swelling, and tenderness.) Eye exam: Present: normal appearance, PERRL, EOMI, periorbital swelling (Right inferior orbital), periorbital tenderness (Right inferior orbital tenderness. ), other (EOMI, no limitation or pain with movement. No evidence of hyphema or globe injuyr. ). Absent: scleral icterus, conjunctival injection ENT exam: Present: normal oropharynx, mucous membranes moist, other (Nasal bridge tenderness. No evidence for epistaxis or septal hematoma. ). Absent: normal exam Neck exam: Present: normal inspection, full ROM, other (Nontender, no step-off, no deformity to firm midline palpation of the posterior cervical spine. Full range of motion without pain or limitation.). Absent: tenderness, meningismus, lymphadenopathy Respiratory exam: Present: normal lung sounds bilaterally. Absent: respiratory distress, wheezes, rales, rhonchi, stridor Cardiovascular Exam: Present: regular rate, normal rhythm, normal heart sounds. Absent: systolic murmur, diastolic murmur, rubs, gallop, clicks Neurological exam: Present: alert, oriented X3, CN II-XII intact Psychiatric exam: Present: normal affect, normal mood Skin exam: Present: warm, dry, intact, normal color. Absent: rash Course Vital Signs 09/12/19 09/13/19 23:37 02:14 Temperature 98.1 F Pulse Rate 75 65 Respiratory 18 16 Rate Blood Pressure 139/81 O2 Sat by Pulse 100 99 Oximetry Procedures - Laceration Laceration #1 Consent Obtained: verbal consent Indication: laceration Site: face Size (cm): 3 Description: linear Depth: simple, single layer Anesthetic Used: lidocaine 1% Anesthesia Technique: local infiltration Amount (mls): 5 Pre-repair: irrigated extensively Type of Sutures: nylon Size of Sutures: 6-0 Number of Sutures: 5 Technique: simple, interrupted Patient Tolerated Procedure: well, no complications Medical Decision Making - Medical Decision Making 54-year-old female patient presents to the emergency department today for evaluation of facial injury. Physical examination did reveal 3 cm laceration to the right maxillary region with surrounding soft tissue swelling. There is some suborbital tenderness or nasal bridge tenderness. She is neurologically intact with no focal deficits. Denies hitting her head or losing consciousness per CT facial bones was obtained and showed no acute fractures or abnormalities. Lac eration was repaired as documented. We did update patient's tetanus vaccine. She'll be discharged home with instructions to return in 5 days for suture removal. She is educated regarding wound care and ice application. She is instructed to follow-up with her primary care physician for recheck in 1-2 days. Return parameters were discussed in detail. She verbalizes understanding and agrees with this plan. - Radiology Data Radiology results: report reviewed, image reviewed CT facial bones without contrast was obtained. Report was reviewed in its enti rety. Impression by Dr. Tinsley shows negative computed tomography scan of the facial bones. No fracture seen. Disposition Clinical Impression: Facial contusion, Facial laceration Disposition: HOME SELF-CARE Condition: Good Instructions (If sedation given, give patient instructions): Laceration (ED), Facial Contusion (ED) Additional Instructions: Cleanse wound twice daily with warm water and antibacterial soap. Apply ice to the facial area as needed for pain relief. Take medication as directed for pain. Return to the emergency department immediately for any new, worsening, or concerning symptoms. Is patient prescribed a controlled substance at d/c from ED?: No Referrals: Wojciech Rosa III, MD [Primary Care Provider] - 1-2 days
--- NOTE | 2019-09-13 01:37 | CT ---
EXAMINATION TYPE: CT facial bones wo con DATE OF EXAM: 09/13/2019 COMPARISON: None HISTORY: right face trauma. CT DLP: 1070.4 mGycm Automated exposure control for dose reduction was used. Multiple axial sections were obtained from the bottom of the mandible to the top of the frontal sinus es without contrast. The mandibular ring appears intact. Temporomandibular joints appear normal. Zygomatic arches appear n ormal. The maxilla is intact. There is no evidence of a blowout fracture. Orbital margins are intact. There is no evidence of retro-orbital mass. There is fairly normal aeration of the paranasal sinuses. Temporal bones show normal aeration. The na brandon bone appears intact. IMPRESSION: Negative CT scan of the facial bones. No fracture seen.
[2019-09-13] MEDS ORDERED: LIDOCAINE 1% INJ 10MG/ML (20 ML MDV) SQ ONE (01:49)
[2019-09-13 02:15] VITALS: PULSE 65; RESP 16
== END 2019-09-13 02:15 | disposition home or self-care (01) ==
LOC: EC 23:34
DX: S01.81XA Laceration without foreign body of other part of head, initial encounter (principal); F41.9 Anxiety disorder, unspecified; Z23 Encounter for immunization; Z88.0 Allergy status to penicillin; Z88.8 Allergy status to other drugs, medicaments and biological substances; Z95.0 Presence of cardiac pacemaker; Z87.891 Personal history of nicotine dependence; W22.8XXA Striking against or struck by other objects, initial encounter
CPT/HCPCS: 12013; 70486; 90471; 90715; 99283

== ENCOUNTER 2019-09-19 11:33 | Emergency (ER) | payer BC ==
[2019-09-19 11:40] VITALS: BP 139/72; PULSE 93; TEMP 98.2
--- NOTE | 2019-09-19 12:14 | ED ---
Wound/Laceration HPI - General Chief Complaint: Wound/Laceration Stated Complaint: facial lac-revisit Time Seen by Provider: 09/19/19 11:45 Source: patient Mode of arrival: ambulatory Limitations: no limitations - History of Present Illness Initial Comments: 54-year-old female patient presents to the emergency department for evaluation of a wound to the right face. The patient was seen and evaluated here last week after she was struck in the face by a gate causing a laceration. Patient had negative CT scan of the facial bones and repair of the laceration at that visit. Patient states that things were healing well, she got the stitches removed, then last evening tiny pieces of glass started to come from one end of the laceration. Patient states that today she got out 2 larger pieces of glass. Patient states that she was wearing glasses when the injury occurred, they did shatter with the impact. She is requesting re-evaluation of the wound. Patient denies any headache, neck pain, back pain, chest pain, shortness of breath, dizziness, weakness, abdominal pain, nausea, vomiting, or difficulties with bowel movements or urination. - Related Data Home Medications Medication Instructions Recorded Confirmed Cholecalciferol [Vitamin D3 (25 1,000 unit PO DAILY 09/19/19 09/19/19 Mcg = 1000 Iu)] Glucosamine Sulfate 500 mg PO DAILY 09/19/19 09/19/19 Magnesium 250 mg PO DAILY 09/19/19 09/19/19 Potassium Gluconate 99 mg PO DAILY 09/19/19 09/19/19 clonazePAM [KlonoPIN] 2 mg PO BID PRN 09/19/19 09/19/19 Allergies Allergy/AdvReac Type Severity Reaction Status Date / Time loratadine [From Claritin] Allergy Unknown Verified 09/19/19 12:15 Penicillins Allergy Unknown Verified 09/19/19 12:15 Childhood topiramate [From Topamax] Allergy Unknown Verified 09/19/19 12:15 cyclobenzaprine AdvReac Rapid Verified 09/19/19 12:15 [From Flexeril] Heart Rate fludrocortisone AdvReac MOOD Verified 09/19/19 12:15 CHANGES midodrine AdvReac HEART RATE Verified 09/19/19 12:15 DECREASES pseudoephedrine AdvReac Rapid Verified 09/19/19 12:15 [From Claritin-D] Heart Rate Review of Systems ROS Statement: Those systems with pertinent positive or pertinent negative responses have been documented in the HPI. ROS Other: All systems not noted in ROS Statement are negative. Past Medical History Past Medical History: No Reported History Additional Past Medical History / Comment(s): sick sinus syndrome. 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, PACEMAKER History of Any Multi-Drug Resistant Organisms: None Reported Past Surgical History: Orthopedic Surgery, Pacemaker, Tonsillectomy Additional Past Surgical History / Comment(s): Rt hand surgery Past Anesthesia/Blood Transfusion Reactions: No Reported Reaction Past Psychological History: Anxiety, Depression Smoking Status: Former smoker Past Alcohol Use History: Occasional Past Drug Use History: None Reported - Past Family History Father Family Medical History: Cancer General Exam Limitations: no limitations General appearance: alert, in no apparent distress, other (This is a well- developed, well-nourished adult female patient in no acute distress. Vital signs upon presentation are temperature 98.2F, pulse 93, respirations 18, blood pressure 139/72, pulse ox 98% on room air.) ENT exam: Present: normal exam, mucous membranes moist, other (Healing laceration to the right maxillary region, lateral aspect of the lac is open. No surrounding redness. No drainage. ) Neurological exam: Present: alert, oriented X3, CN II-XII intact Psychiatric exam: Present: normal affect, normal mood Skin exam: Present: warm, dry, intact, normal color. Absent: rash Course Vital Signs 09/19/19 09/19/19 11:38 12:20 Temperature 98.2 F Pulse Rate 93 Respiratory 18 20 Rate Blood Pressure 139/72 O2 Sat by Pulse 98 Oximetry Medical Decision Making - Medical Decision Making 54-year-old female patient presents to the emergency department today for reevaluation of wound to the right maxillary region on her face. Patient has had glass coming from the wound since last evening. Patient reported that she had forgotten to mention she was wearing glasses at her initial visit. My attending Dr. Cazares and I did review the CT facial bones from last week, there does appear to evidence of foreign body on the scan, it is consistent with the piece of glass that patient presented with. There does not appear to be any further foreign bodies on computed tomography scan. Patient is quite concerned about scarring to her face so I did approximate the open edge of the laceration with Steri-Strips. She is educated regarding signs or symptoms of infection. She is instructed to follow up with her primary care physician for recheck in 1- 2 days. Return parameters were discussed in detail. She verbalizes understanding and agrees with this plan. Disposition Clinical Impression: Encounter for wound re-check, Soft tissues foreign body Disposition: HOME SELF-CARE Condition: Good Instructions (If sedation given, give patient instructions): Laceration (ED), Soft Tissue Foreign Body (ED) Additional Instructions: Leave Steri-Strips in place until he follows off. Watch for signs or symptoms of infection including but not limited to redness, swelling, drainage of pus, fever, or chills. Follow-up with your primary care physician for recheck in 1-2 days. Return to the emergency department immediately for any new, worsening, or concerning symptoms. Is patient prescribed a controlled substance at d/c from ED?: No Referrals: Wojciech Rosa III, MD [Primary Care Provider] - 1-2 days Time of Disposition: 12:14
[2019-09-19 12:21] VITALS: RESP 20
== END 2019-09-19 12:21 | disposition home or self-care (01) ==
LOC: EC 11:33
DX: S01.81XD Laceration without foreign body of other part of head, subsequent encounter (principal); Z95.0 Presence of cardiac pacemaker; Z87.891 Personal history of nicotine dependence; Z79.899 Other long term (current) drug therapy; Z88.8 Allergy status to other drugs, medicaments and biological substances; Z88.0 Allergy status to penicillin; W22.8XXD Striking against or struck by other objects, subsequent encounter
CPT/HCPCS: 99283

== ENCOUNTER 2020-01-17 13:29 | Observation (INO) | payer BC ==
--- NOTE | 2020-01-17 13:56 | ED ---
General Adult HPI - General Chief complaint: Syncope Stated complaint: Syncope Time Seen by Provider: 01/17/20 13:47 Source: patient, family, RN notes reviewed Mode of arrival: wheelchair Limitations: no limitations - History of Present Illness Initial comments: Patient is a pleasant 54-year-old female presenting to the emergency department following syncopal episode. Episode occurred prior to arrival. Patient was cutting the grass and became lightheaded. Patient went inside and sat down and then passed out. Unclear how long. Patient has had some palpitations. No chest pain. No dyspnea. Patient has been lightheaded and remains somewhat lig htheaded. Platelet patient was slightly confused for second when she woke up otherwise no confusion. No isolated area of weakness. - Related Data Home Medications Medication Instructions Recorded Confirmed Cholecalciferol [Vitamin D3 (25 1,000 unit PO DAILY 09/19/19 01/17/20 Mcg = 1000 Iu)] Magnesium 250 mg PO DAILY 09/19/19 01/17/20 Potassium Gluconate 99 mg PO DAILY 09/19/19 01/17/20 clonazePAM [KlonoPIN] 2 mg PO BID PRN 09/19/19 01/17/20 Butalb/Acetaminophen/Caffeine 1 tab PO Q12H PRN 01/17/20 01/17/20 [Fioricet 50-300-40 mg Capsule] Allergies Allergy/AdvReac Type Severity Reaction Status Date / Time loratadine [From Claritin] Allergy Unknown Verified 01/17/20 16:04 Penicillins Allergy Unknown Verified 01/17/20 16:04 Childhood topiramate [From Topamax] Allergy Unknown Verified 01/17/20 16:04 cyclobenzaprine AdvReac Rapid Verified 01/17/20 16:04 [From Flexeril] Heart Rate fludrocortisone AdvReac MOOD Verified 01/17/20 16:04 CHANGES midodrine AdvReac HEART RATE Verified 01/17/20 16:04 DECREASES pseudoephedrine AdvReac Rapid Verified 01/17/20 16:04 [From Claritin-D] Heart Rate Review of Systems ROS Statement: Those systems with pertinent positive or pertinent negative responses have been documented in the HPI. ROS Other: All systems not noted in ROS Statement are negative. Constitutional: Denies: fever Eyes: Denies: eye pain ENT: Denies: ear pain Respiratory: Denies: cough Cardiovascular: Reports: palpitations. Denies: chest pain Endocrine: Denies: fatigue Gastrointestinal: Denies: abdominal pain Genitourinary: Denies: dysuria Musculoskeletal: Denies: back pain Skin: Denies: rash Neurological: Denies: headache, weakness Past Medical History Past Medical History: No Reported History Additional Past Medical History / Comment(s): sick sinus syndrome. 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, PACEMAKER History of Any Multi-Drug Resistant Organisms: None Reported Past Surgical History: Orthopedic Surgery, Pacemaker, Tonsillectomy Additional Past Surgical History / Comment(s): Rt hand surgery Past Anesthesia/Blood Transfusion Reactions: No Reported Reaction Past Psychological History: Anxiety, Depression Smoking Status: Never smoker Past Alcohol Use History: Occasional Past Drug Use History: None Reported - Past Family History Father Family Medical History: Cancer General Exam Limitations: no limitations General appearance: alert, in no apparent distress Head exam: Present: atraumatic, normocephalic Eye exam: Present: normal appearance, PERRL, EOMI. Absent: nystagmus ENT exam: Present: normal oropharynx Neck exam: Present: normal inspection Respiratory exam: Present: normal lung sounds bilaterally Cardiovascular Exam: Present: regular rate, normal rhythm Expanded Peripheral pulses: 2+: Radial (R), Radial (L), Dorsalis Pedis (R), Dorsalis Pedis (L) GI/Abdominal exam: Present: soft. Absent: tenderness, pulsatile mass Extremities exam: Present: normal inspection Neurological exam: Present: alert, oriented X3, CN II-XII intact. Absent: motor sensory deficit Psychiatric exam: Present: normal affect, normal mood Skin exam: Present: normal color Course Vital Signs 01/17/20 13:32 Temperature 97.7 F Pulse Rate 78 Respiratory 18 Rate Blood Pressure 140/88 O2 Sat by Pulse 98 Oximetry EKG Findings - EKG Comments: EKG Findings:: Normal sinus rhythm 77. VA 164. QRS 86. QT 360. QTC 47. Normal axis. Normal QRS. No acute ST change. Medical Decision Making - Medical Decision Making Patient reevaluated and resting comfortably in bed. Patient still feels somewhat lightheaded and shaky. Patient and family updated on results and plan. Dr. Paris has been paged for admission covering for Dr. Rosa. Case was discussed with Dr. Paris, who will admit. - Lab Data Result diagrams: 01/17/20 13:55 01/17/20 13:55 Lab Results 01/17/20 01/17/20 01/17/20 Range/Units 13:55 13:55 13:55 WBC 10.9 H (3.8-10.6) k/uL RBC 4.77 (3.80-5.40) m/uL Hgb 13.7 (11.4-16.0) gm/dL Hct 42.9 (34.0-46.0) % MCV 89.9 (80.0-100.0) fL MCH 28.7 (25.0-35.0) pg MCHC 32.0 (31.0-37.0) g/dL RDW 12.3 (11.5-15.5) % Plt Count 304 (150-450) k/uL Neutrophils % 82 % Lymphocytes % 13 % Monocytes % 3 % Eosinophils % 1 % Basophils % 0 % Neutrophils # 8.9 H (1.3-7.7) k/uL Lymphocytes # 1.4 (1.0-4.8) k/uL Monocytes # 0.3 (0-1.0) k/uL Eosinophils # 0.1 (0-0.7) k/uL Basophils # 0.0 (0-0.2) k/uL PT 9.4 (9.0-12.0) sec INR 0.9 (<1.2) APTT 23.2 (22.0-30.0) sec Sodium (137-145) mmol/L Potassium (3.5-5.1) mmol/L Chloride (98-107) mmol/L Carbon Dioxide (22-30) mmol/L Anion Gap mmol/L BUN (7-17) mg/dL Creatinine (0.52-1.04) mg/dL Est GFR (CKD-EPI)AfAm (>60 ml/min/1.73 sqM) Est GFR (CKD-EPI)NonAf (>60 ml/min/1.73 sqM) Glucose (74-99) mg/dL Calcium (8.4-10.2) mg/dL Magnesium (1.6-2.3) mg/dL Total Bilirubin (0.2-1.3) mg/dL AST (14-36) U/L ALT (4-34) U/L Alkaline Phosphatase (38-126) U/L Troponin I (0.000-0.034) ng/mL Total Protein (6.3-8.2) g/dL Albumin (3.5-5.0) g/dL Urine Color Colorless Urine Appearance Clear (Clear) Urine pH 5.5 (5.0-8.0) Ur Specific [place] 1.006 (1.001-1.035) Urine Protein Negative (Negative) Urine Glucose (UA) Negative (Negative) Urine Ketones Negative (Negative) Urine Blood Negative (Negative) Urine Nitrite Negative (Negative) Urine Bilirubin Negative (Negative) Urine Urobilinogen <2.0 (<2.0) mg/dL Ur Leukocyte Esterase Negative (Negative) 01/17/20 01/17/20 Range/Units 13:55 13:55 WBC (3.8-10.6) k/uL RBC (3.80-5.40) m/uL Hgb (11.4-16.0) gm/dL Hct (34.0-46.0) % MCV (80.0-100.0) fL MCH (25.0-35.0) pg MCHC (31.0-37.0) g/dL RDW (11.5-15.5) % Plt Count (150-450) k/uL Neutrophils % % Lymphocytes % % Monocytes % % Eosinophils % % Basophils % % Neutrophils # (1.3-7.7) k/uL Lymphocytes # (1.0-4.8) k/uL Monocytes # (0-1.0) k/uL Eosinophils # (0-0.7) k/uL Basophils # (0-0.2) k/uL PT (9.0-12.0) sec INR (<1.2) APTT (22.0-30.0) sec Sodium 137 (137-145) mmol/L Potassium 4.7 (3.5-5.1) mmol/L Chloride 110 H (98-107) mmol/L Carbon Dioxide 21 L (22-30) mmol/L Anion Gap 6 mmol/L BUN 21 H (7-17) mg/dL Creatinine 0.74 (0.52-1.04) mg/dL Est GFR (CKD-EPI)AfAm >90 (>60 ml/min/1.73 sqM) Est GFR (CKD-EPI)NonAf >90 (>60 ml/min/1.73 sqM) Glucose 107 H (74-99) mg/dL Calcium 10.1 (8.4-10.2) mg/dL Magnesium 1.8 (1.6-2.3) mg/dL Total Bilirubin 0.3 (0.2-1.3) mg/dL AST 24 (14-36) U/L ALT 21 (4-34) U/L Alkaline Phosphatase 106 (38-126) U/L Troponin I <0.012 (0.000-0.034) ng/mL Total Protein 7.4 (6.3-8.2) g/dL Albumin 4.3 (3.5-5.0) g/dL Urine Color Urine Appearance (Clear) Urine pH (5.0-8.0) Ur Specific [place] (1.001-1.035) Urine Protein (Negative) Urine Glucose (UA) (Negative) Urine Ketones (Negative) Urine Blood (Negative) Urine Nitrite (Negative) Urine Bilirubin (Negative) Urine Urobilinogen (<2.0) mg/dL Ur Leukocyte Esterase (Negative) - Radiology Data Radiology results: image reviewed (Chest x-ray shows no acute process) Disposition Clinical Impression: Syncope Disposition: ADMITTED IP TO THIS HOSP Is patient prescribed a controlled substance at d/c from ED?: No Referrals: Wojciech Rosa III, MD [Primary Care Provider] - 1-2 days Decision Time: 16:21
[2020-01-17] MEDS: SODIUM CHLORIDE 0.9% 1,000 ML IV STA ×2 (14:08→19:36)
[2020-01-17 14:19] LABS: Basophils % (A) 0 %; Eosinophils # (A) 0.1 k/uL (0-0.7); Eosinophils % (A) 1 %; HCT 42.9 % (34.0-46.0); HGB 13.7 gm/dL (11.4-16.0); Lymphocytes # (A) 1.4 k/uL (1.0-4.8); Lymphocytes % (A) 13 %; MCH 28.7 pg (25.0-35.0); MCV 89.9 fL (80.0-100.0); Mean Platelet Volume 7.4; Monocytes # (A) 0.3 k/uL (0-1.0); Monocytes % (A) 3 %; Neutrophils # (A) 8.9 k/uL (1.3-7.7); Neutrophils % (A) 82 %; Platelet Count 304 k/uL (150-450); RBC 4.77 m/uL (3.80-5.40); RDW 12.3 % (11.5-15.5); WBC 10.9 k/uL (3.8-10.6)
--- NOTE | 2020-01-17 14:25 | XR ---
EXAMINATION TYPE: XR chest 2V DATE OF EXAM: 01/17/2020 COMPARISON: 01/07/2019 TECHNIQUE: PA and lateral views submitted. HISTORY: Syncope FINDINGS: The lungs are clear and there is no pneumothorax, pleural effusion, or focal pneumonia. Heart size normal. No overt failure. Cardiac device noted. IMPRESSION: 1. No acute process.
[2020-01-17 14:28] LABS: ALT 21 U/L (4-34); AST 24 U/L (14-36); African American GFR (CKD) >90 (>60 ml/min/1.73 sqM); Albumin 4.3 g/dL (3.5-5.0); Alkaline Phosphatase 106 U/L (38-126); Anion Gap 6 mmol/L; Blood Urea Nitrogen 21 mg/dL (7-17); Calcium 10.1 mg/dL (8.4-10.2); Carbon Dioxide 21 mmol/L (22-30); Chloride 110 mmol/L (98-107); Glucose 107 mg/dL (74-99); INR 0.9 (<1.2); Magnesium 1.8 mg/dL (1.6-2.3); Non-African American GFR(CKD) >90 (>60 ml/min/1.73 sqM); Partial Thromboplastin Time 23.2 sec (22.0-30.0); Potassium 4.7 mmol/L (3.5-5.1); Prothrombin Time 9.4 sec (9.0-12.0); Sodium 137 mmol/L (137-145); Total Bilirubin 0.3 mg/dL (0.2-1.3); Total Protein 7.4 g/dL (6.3-8.2)
[2020-01-17 14:36] LABS: Appearance,Urine Clear (Clear); Bilirubin,Urine Negative (Negative); Blood,Urine Negative (Negative); Color,Urine Colorless; Glucose,Urine (UA) Negative (Negative); Ketones,Urine Negative (Negative); Leukocyte Esterase,Urine Negative (Negative); Nitrite,Urine Negative (Negative); PH, Urine 5.5 (5.0-8.0); Protein,Urine Negative (Negative); Specific Gravity,Urine 1.006 (1.001-1.035); Urobilinogen,Urine <2.0 mg/dL (<2.0)
[2020-01-17] MEDS ORDERED: NALOXONE 0.4 MG/ML 1 ML VIAL IV PRN (16:23)
[2020-01-17] MEDS ORDERED: BUTALB/APAP/CAFF 50-325-40MG TAB PO PRN (19:39)
[2020-01-17] MEDS ORDERED: clonazePAM 1 MG TAB PO PRN (19:39)
[2020-01-17] MEDS ORDERED: ALPRAZolam 0.25 MG TAB PO PRN (21:00)
[2020-01-17] MEDS ORDERED: TEMAZEPAM 15 MG CAP PO PRN (21:00)
[2020-01-17] MEDS: SODIUM CHLORIDE 0.9% 1,000 ML IV SCH (22:46)
--- NOTE | 2020-01-18 00:37 | HP ---
HISTORY AND PHYSICAL DATE OF SERVICE: 01/17/2020 CHIEF COMPLAINT: Passing out. HISTORY OF PRESENT ILLNESS: This 54-year-old woman with a past medical history of multiple medical problems, sick sinus syndrome, history of tumor of the pituitary gland, history of pacemaker being followed Dr. Rosa in the outpatient setting was riding on a flooring mechanic. The patient apparently did not take much fluid, but the patient felt dizzy, lightheaded and patient went to bed and passed out for a very brief period. The patient came to [facility] and was admitted for further evaluation and treatment. Evaluation showed some evidence of dehydration, but otherwise the EKG which I reviewed personally showed normal sinus rhythm. There is no history of fever, rigors. No history of headache, loss of consciousness or seizures at this time. PAST MEDICAL HISTORY: History of sick sinus syndrome, history of tumor of pituitary gland, history of pacemaker. MEDICATIONS: The home medications are: 1. Fioricet. 2. Potassium gluconate. 3. Magnesium. 4. Klonopin. 5. Vitamin D. Doses are reviewed. ALLERGIES: Allergies are CLARITIN, PENICILLIN, TOPAMAX, FLEXERIL, FLUDROCORTISONE, MIDODRINE, PSEUDOEPHEDRINE. FAMILY HISTORY: History of coronary artery disease in the family. SOCIAL HISTORY: Previous history of smoking. No history of current smoking or alcohol intake. REVIEW OF SYSTEMS: ENT: No diminished hearing or diminished vision. CARDIOVASCULAR SYSTEM: No angina. RESPIRATORY SYSTEM: As mentioned earlier. GI: No nausea. : No dysuria. NERVOUS SYSTEM: As mentioned earlier. ALLERGY/IMMUNOLOGY: No asthma. MUSCULOSKELETAL: As mentioned earlier. HEMATOLOGY/ONCOLOGY: No history of anemia. ENDOCRINE: No history of diabetes mellitus or hypothyroidism. CONSTITUTIONAL: As mentioned earlier. DERMATOLOGY: Negative. RHEUMATOLOGY: Negative. PSYCHIATRY: As mentioned earlier. PHYSICAL EXAMINATION: The patient is alert and oriented x3. Pulse 78, blood pressure 132/81, respiration 16, temperature 99 degrees, pulse ox 98% on room air. HEENT: Conjunctivae normal. Oral mucosa moist. NECK: No jugular venous distention. No carotid bruit. No lymph node enlargement. CARDIOVASCULAR: S1, S2 muffled. No S3, no S4. RESPIRATORY: Breath sounds diminished at the bases. No rhonchi. No crackles. ABDOMEN: Soft, nontender. No mass palpable. LEGS: No edema, no swelling. NERVOUS SYSTEM: Higher functions as mentioned earlier. Moves all 4 limbs. No focal motor or sensory deficits. LYMPHATICS: No lymphadenopathy of the neck, axillae or groin. SKIN: No ulcer, rash or bleeding. JOINTS: No active deforming arthropathy. LABS: WBC 10.9, hemoglobin 13.7. Sodium 137, potassium 4.7. ASSESSMENT: 1. Syncope for evaluation possibly cardiogenic syncope. 2. Rule out vasovagal or orthostatic hypotension. 3. History of sick sinus syndrome. 4. History of pacemaker. 5. History of tumor of pituitary gland. 6. History of tonsillectomy. 7. History of anxiety, depression. 8. Remote history of nicotine dependence. RECOMMENDATIONS AND DISCUSSION: This 54-year-old woman who presented with multiple medical issues, we will monitor the patient closely. Continue the current medications. Continue symptomatic treatment. Telemetry. Cardiology consultation. Orthostatic vitals. Resume the home medications. Prognosis guarded because of multiple complex medical issues. A copy of dictation forwarded to Dr. Rosa who is the primary physician. MMROBERTO CARLOSL / IJN: [id number] /
[2020-01-18] MEDS: SODIUM CHLORIDE 0.9% 1,000 ML IV SCH (06:53)
[2020-01-18] MEDS ORDERED: PANTOPRAZOLE 40 MG TABLET PO SCH (07:30)
[2020-01-18 08:07] VITALS: BP 119/76; PULSE 66; RESP 17; TEMP 98.3
[2020-01-18] MEDS ORDERED: CHOLECALCIFEROL 1,000 UNIT TAB PO SCH (09:00)
[2020-01-18] MEDS ORDERED: MAGNESIUM OXIDE 400 MG TAB PO SCH (09:00)
[2020-01-18] MEDS ORDERED: NON FORMULARY DRUG (Potassium Gluconate [Potassium Gluconate] 99 MG Tablet.Er) PO SCH (09:00)
--- NOTE | 2020-01-18 09:34 | P.CRDCN ---
History of Present Illness Consult date: 01/18/20 History of present illness: CHIEF COMPLAINT: Syncope HISTORY OF PRESENT ILLNESS: This is a 54-year old female with a past medical history significant for sick sinus syndrome with previous pacemaker insertion. Patient follows in the office with Dr. Orellana. We have been asked to see the patient in consultation for syncope. Patient examined this morning at the bedside. Patient states she has a history of feeling lightheaded and gets episodes once or twice a month. She states she was out on her riding lawnmower yesterday cutting grass when she started to feel lightheaded. She states she went inside to lay down in her bedroom. The next thing she remembers she woke up and realized she had passed out. She states there was no one home at the time. She believes she may have been out for less than 1 minute. She denies having any chest pain or shortness of breath prior to this episode. DIAGNOSTICS: EKG reveals sinus rhythm without evidence of acute ischemia. Chest xray negative for acute process. Laboratory data: WBC 10.9. Hemoglobin 13.7. Platelet count 304. Sodium 137. Potassium 4.7. BUN 21. Creatinine 0.74. Magnesium 1.8. Troponin negative 3 Current home cardiac medications include none REVIEW OF SYSTEMS: At the time of my exam: CONSTITUTIONAL: Denies fever or chills. HEENT: Denies blurred vision, vision changes, or eye pain. Denies hemoptysis CARDIOVASCULAR: Denies chest pain, orthopnea, PND or palpitations RESPIRATORY: No shortness of breath. GASTROINTESTINAL: Denies abdominal pain. Denies nausea or vomiting. HEMATOLOGIC: Denies bleeding disorders. GENITOURINARY: Denies any blood in urine. SKIN: Denies pruitis. Denies rash. PHYSICAL EXAM: VITAL SIGNS: Reviewed. GENERAL: Well-developed in no acute distress. HEENT: Head is normocephalic. Pupils are equal, round. Sclerae anicteric. Mucous membranes of the mouth are moist. Neck supple. No JVD or thyromegaly LUNGS: Respirations even and unlabored. Lungs essentially clear to auscultation bilaterally. HEART: Regular rate and rhythm. S1 and S2 heard. ABDOMEN: Soft. Nondistended. Nontender. EXTREMITIES: Normal range of motion. No clubbing or cyanosis. Peripheral pulses intact. No lower extremity edema NEUROLOGIC: Awake and alert. Oriented x 3. ASSESSMENT: Syncope, rule out cardiac etiology History of sick sinus syndrome, status post pacemaker insertion PLAN: Orthostatic blood pressures reviewed and were unremarkable Obtain 2-D echo to assess cardiac structure and function Patient to undergo stress echo this morning to rule out cardiac etiology of syncope Interrogate pacemaker Further recommendations pending patient's course Nurse practitioner note has been reviewed by physician. Signing provider agrees with the documented findings, assessment, and plan of care. Past Medical History Past Medical History: No Reported History Additional Past Medical History / Comment(s): sick sinus syndrome. 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, PACEMAKER History of Any Multi-Drug Resistant Organisms: None Reported Past Surgical History: Orthopedic Surgery, Pacemaker, Tonsillectomy Additional Past Surgical History / Comment(s): Rt hand surgery Past Anesthesia/Blood Transfusion Reactions: No Reported Reaction Type of Cardiac Device: Permanent Pacemaker Device Placement Date:: 2016 Past Psychological History: Anxiety, Depression Smoking Status: Former smoker Past Alcohol Use History: Occasional Additional Past Alcohol Use History / Comment(s): quit smoking 1999 Past Drug Use History: None Reported - Past Family History Father Family Medical History: Cancer, Coronary Artery Disease (CAD) Mother Family Medical History: Coronary Artery Disease (CAD), Hypertension Medications and Allergies Home Medications Medication Instructions Recorded Confirmed Type Cholecalciferol [Vitamin D3 (25 1,000 unit PO DAILY 09/19/19 01/17/20 History Mcg = 1000 Iu)] Magnesium 250 mg PO DAILY 09/19/19 01/17/20 History Potassium Gluconate 99 mg PO DAILY 09/19/19 01/17/20 History clonazePAM [KlonoPIN] 2 mg PO BID PRN 09/19/19 01/17/20 History Butalb/Acetaminophen/Caffeine 1 tab PO Q12H PRN 01/17/20 01/17/20 History [Fioricet 50-300-40 mg Capsule] Allergies Allergy/AdvReac Type Severity Reaction Status Date / Time loratadine [From Claritin] Allergy Unknown Verified 01/17/20 16:04 Penicillins Allergy Unknown Verified 01/17/20 16:04 Childhood topiramate [From Topamax] Allergy Unknown Verified 01/17/20 16:04 cyclobenzaprine AdvReac Rapid Verified 01/17/20 16:04 [From Flexeril] Heart Rate fludrocortisone AdvReac MOOD Verified 01/17/20 16:04 CHANGES midodrine AdvReac HEART RATE Verified 01/17/20 16:04 DECREASES pseudoephedrine AdvReac Rapid Verified 01/17/20 16:04 [From Claritin-D] Heart Rate Physical Exam Vitals: Vital Signs Temp Pulse Pulse Pulse Pulse Pulse Pulse 01/18/20 08:01 98.3 F 66 64 62 66 66 01/17/20 21:00 98.9 F 79 01/17/20 20:59 98.5 F 66 76 67 01/17/20 18:15 78 01/17/20 17:27 65 01/17/20 16:48 99.0 F 65 01/17/20 13:32 97.7 F 78 Resp BP BP BP BP Pulse Ox 01/18/20 08:01 17 119/76 121/78 124/73 97 01/17/20 21:00 18 143/80 96 01/17/20 20:59 18 142/70 130/78 137/68 98 01/17/20 18:15 16 132/81 98 01/17/20 17:27 19 114/72 97 01/17/20 16:48 17 161/82 100 01/17/20 13:32 18 140/88 98 Intake and Output 01/17/20 01/18/20 01/18/20 22:59 06:59 14:59 Other: Voiding Method Toilet Toilet # Voids 0 1 0 Weight 72.575 kg Results 01/17/20 13:55 01/17/20 13:55 Cardiac Enzymes 01/17/20 01/17/20 01/17/20 Range/Units 13:55 13:55 18:25 AST 24 (14-36) U/L Troponin I <0.012 <0.012 (0.000-0.034) ng/mL 01/17/20 Range/Units 20:54 AST (14-36) U/L Troponin I <0.012 (0.000-0.034) ng/mL Coagulation 01/17/20 Range/Units 13:55 PT 9.4 (9.0-12.0) sec APTT 23.2 (22.0-30.0) sec CBC 01/17/20 Range/Units 13:55 WBC 10.9 H (3.8-10.6) k/uL RBC 4.77 (3.80-5.40) m/uL Hgb 13.7 (11.4-16.0) gm/dL Hct 42.9 (34.0-46.0) % Plt Count 304 (150-450) k/uL Comprehensive Metabolic Panel 01/17/20 Range/Units 13:55 Sodium 137 (137-145) mmol/L Potassium 4.7 (3.5-5.1) mmol/L Chloride 110 H (98-107) mmol/L Carbon Dioxide 21 L (22-30) mmol/L BUN 21 H (7-17) mg/dL Creatinine 0.74 (0.52-1.04) mg/dL Glucose 107 H (74-99) mg/dL Calcium 10.1 (8.4-10.2) mg/dL AST 24 (14-36) U/L ALT 21 (4-34) U/L Alkaline Phosphatase 106 (38-126) U/L Total Protein 7.4 (6.3-8.2) g/dL Albumin 4.3 (3.5-5.0) g/dL Current Medications Generic Name Dose Route Start Last Admin Trade Name Freq PRN Reason Stop Dose Admin Acetaminophen/Butalbital/Caffeine 1 each 01/17/20 19:39 Butalb/Apap/Caff 50-325-40mg Tab PO Q12H PRN Migraine Headache Alprazolam 0.25 mg 01/17/20 21:00 Alprazolam 0.25 Mg Tab PO TID PRN Anxiety Cholecalciferol 1,000 unit 01/18/20 09:00 01/18/20 08:48 Cholecalciferol 1,000 Unit Tab PO 1,000 unit DAILY MOISES Administration Clonazepam 2 mg 01/17/20 19:39 Clonazepam 1 Mg Tab PO BID PRN Anxiety Sodium Chloride 1,000 mls @ 75 mls/hr 01/17/20 16:30 01/18/20 06:53 Saline 0.9% IV Not Given .[id number] MOISES Magnesium Oxide 400 mg 01/18/20 09:00 01/18/20 08:47 Magnesium Oxide 400 Mg Tab PO 400 mg DAILY MOISES Administration Naloxone HCl 0.2 mg 01/17/20 16:23 Naloxone 0.4 Mg/Ml 1 Ml Vial IV Q2M PRN Opioid Reversal Pantoprazole Sodium 40 mg 01/18/20 07:30 01/18/20 07:57 Pantoprazole 40 Mg Tablet PO 40 mg [id number] MOISES Administration Temazepam 15 mg 01/17/20 21:00 Temazepam 15 Mg Cap PO HS PRN Insomnia Intake and Output 01/17/20 01/18/20 01/18/20 22:59 06:59 14:59 Other: Voiding Method Toilet Toilet # Voids 0 1 0 Weight 72.575 kg 01/17/20 13:55 01/17/20 13:55
--- NOTE | 2020-01-18 10:09 | ECHOF ---
Referral Reason:near syncopal event at home MEASUREMENTS -------- HEIGHT: 165.1 cm WEIGHT: 72.6 kg BP: 143/60 RVIDd: 2.5 cm (< 3.3) IVSd: 0.9 cm (0.6 - 1.1) LVIDd: 3.9 cm (3.9 - 5.3) LVPWd: 1.1 cm (0.6 - 1.1) IVSs: 1.3 cm LVIDs: 2.4 cm LVPWs: 1.2 cm LA Diam: 3.5 cm (2.7 - 3.8) LAESV Index (A-L): 18.59 ml/m Ao Diam: 2.5 cm (2.0 - 3.7) AV Cusp: 1.5 cm (1.5 - 2.6) MV EXCURSION: 18.525 mm (> 18.000) MV EF SLOPE: 92 mm/s (70 - 150) EPSS: 0.4 cm MV E Haim: 0.64 m/s MV DecT: 204 ms MV A Haim: 0.68 m/s MV E/A Ratio: 0.94 RAP: 5.00 mmHg RVSP: 26.63 mmHg FINDINGS -------- Paced rhythm. This was a technically adequate study. The left ventricular size is normal. Left ventricular wall thickness is normal. Overall left vent ricular systolic function is low-normal with, an EF between 50 - 55 %. The right ventricle is normal in size. The left atrial size is normal. The right atrial size is normal. The aortic valve is trileaflet, and appears structurally normal. No aortic stenosis or regurgitation. Mild mitral regurgitation is present. Mild tricuspid regurgitation present. Right ventricular systolic pressure is normal at < 35 mmHg. There is no pulmonic regurgitation present. The aortic root size is normal. There is no pericardial effusion. CONCLUSIONS -------- 1. Paced rhythm. 2. The left ventricular size is normal. 3. Left ventricular wall thickness is normal. 4. Overall left ventricular systolic function is low-normal with, an EF between 50 - 55 %. 5. The right ventricle is normal in size. 6. The left atrial size is normal. 7. The right atrial size is normal. 8. Mild mitral regurgitation is present. 9. Mild tricuspid regurgitation present. 10. There is no pulmonic regurgitation present. 11. There is no pericardial effusion. CLERICAL SUPPORT SPECIALIST: Ansley Brewer RDCS
[2020-01-18 11:56] LABS: Basophils % (A) 1 %; Eosinophils # (A) 0.1 k/uL (0-0.7); Eosinophils % (A) 1 %; HCT 43.3 % (34.0-46.0); HGB 13.8 gm/dL (11.4-16.0); Lymphocytes # (A) 1.5 k/uL (1.0-4.8); Lymphocytes % (A) 20 %; MCHC 31.8 g/dL (31.0-37.0); MCV 91.2 fL (80.0-100.0); Mean Platelet Volume 7.5; Monocytes # (A) 0.3 k/uL (0-1.0); Monocytes % (A) 3 %; Neutrophils # (A) 5.7 k/uL (1.3-7.7); Neutrophils % (A) 74 %; Platelet Count 319 k/uL (150-450); RBC 4.75 m/uL (3.80-5.40); RDW 12.7 % (11.5-15.5); WBC 7.8 k/uL (3.8-10.6)
[2020-01-18 12:14] LABS: African American GFR (CKD) >90 (>60 ml/min/1.73 sqM); Anion Gap 8 mmol/L; Blood Urea Nitrogen 14 mg/dL (7-17); Calcium 10.1 mg/dL (8.4-10.2); Carbon Dioxide 21 mmol/L (22-30); Chloride 110 mmol/L (98-107); Glucose 115 mg/dL (74-99); Non-African American GFR(CKD) 85 (>60 ml/min/1.73 sqM); Potassium 4.6 mmol/L (3.5-5.1); Sodium 139 mmol/L (137-145)
--- NOTE | 2020-01-18 12:44 | ECHOS ---
STRESS ECHOCARDIOGRAM DATE OF SERVICE: 01/18/2020. INDICATION: Syncope. MEDICATIONS: See list. BASELINE HEART RATE: 71 BASELINE BLOOD PRESSURE: 131/86 MAXIMUM HEART RATE: 163 MAXIMUM BLOOD PRESSURE: 192/54 85% MPHR: 143 100% MPHR: 165 METS: 8.7 MAXIMUM STAGE REACHED: 3 TOTAL EXERCISE TIME: 7:15 minutes RESULTS: Baseline EKG shows sinus rhythm, normal axis, normal intervals. Patient exercised on Mohan protocol for a total of 10 and 0.5 minutes achieving 12 METS. 97% of predicted maximal heart rate without chest pain or diagnostic ST-segment depression. Baseline echo shows normal left ventricular size wall motion systolic function. Postexercise there is normal hyperdynamic response of all segments of myocardium noted. CONCLUSIONS: 1. Excellent exercise tolerance. 2. Negative stress test by EKG criteria. 3. Negative stress echo. MMROBERTO CARLOSL / IJN: [id number] /
--- NOTE | 2020-01-19 07:08 | DS ---
DISCHARGE SUMMARY DATE OF SERVICE: 01/18/2020 FINAL DIAGNOSIS: 1. Syncope, possibly cardiogenic syncope, improved. 2. Possible vasovagal syncope. 3. No orthostatic hypotension. 4. History of sick sinus syndrome. 5. History of pacemaker. 6. Tumor of the pituitary gland. 7. History of tonsillectomy. 8. History of anxiety and depression. 9. Remote history of nicotine dependence. DISPOSITION: The patient will be discharged in a stable condition with a guarded prognosis. HISTORY OF PRESENT ILLNESS: This is a 54-year-old woman with a past medical history of multiple medical problems, who sees Dr. Rosa in the outpatient setting, was admitted for syncope. The patient was treated symptomatically. Cardiology saw the patient and a stress echo was negative. Pacemaker interrogation also was unremarkable. The patient will be discharged in stable condition with guarded prognosis. Further close plans to follow with Dr. Rosa in the outpatient setting and outpatient neurology evaluation also recommended. PHYSICAL EXAMINATION: On exam vitals stable. Cardiovascular S1 and S2. Abdomen is soft. Nervous system: No focal deficits. DISCHARGE INSTRUCTIONS: Diet is cardiac diet. Activity is limited until follow up. Follow up with Dr. Orellana as recommended. Follow up with Dr. Rosa as recommended. Follow up with Neurology per Dr. Rosa. MEDICATIONS: 1. Fioricet b.i.d. p.r.n. 2. Klonopin 2 mg b.i.d. p.r.n. 3. magnesium 250 mg daily. 4. Potassium gluconate 99 mg p.o. daily. 5. Vitamin D3 1000 daily. MMODL / IJN: [id number] /
== END 2020-01-18 14:02 | disposition home or self-care (01) ==
LOC: EC 13:29 → 1SOBS 16:23
PROVIDERS: ADMIT Hospitalist; ATTEND Hospitalist
DX: R55 Syncope and collapse (principal); I49.5 Sick sinus syndrome; D49.7 Neoplasm of unspecified behavior of endocrine glands and other parts of nervous system; F41.9 Anxiety disorder, unspecified; F32.9 Major depressive disorder, single episode, unspecified; E86.0 Dehydration; Z95.0 Presence of cardiac pacemaker; Z90.89 Acquired absence of other organs; Z87.891 Personal history of nicotine dependence; Z79.899 Other long term (current) drug therapy; Z88.8 Allergy status to other drugs, medicaments and biological substances; Z88.0 Allergy status to penicillin; Z98.890 Other specified postprocedural states; Z80.9 Family history of malignant neoplasm, unspecified; Z82.49 Family history of ischemic heart disease and other diseases of the circulatory system
CPT/HCPCS: 93005 ×2; 99285; 36415; 93306; 93351; 80053; 80048; 83735; 84484; 85025 ×2; 85610; 85730; 81003; 71046; G0378 ×2

== ENCOUNTER → 2021-02-04 | Outpatient (CLI) | payer BC ==
--- NOTE | 2021-02-06 11:43 | MM ---
Reason for exam: screening (asymptomatic). Last mammogram was performed 2 years and 7 months ago. History: Patient is postmenopausal. Ultrasound-guided core biopsy of the left breast, June 14, 2017. Physical Findings: A clinical breast exam by your physician is recommended on an annual basis and results should be correlated with mammographic findings. MG 3D Screening Mammo W/Cad Bilateral CC and MLO view(s) were taken. Prior study comparison: June 23, 2018, bilateral MG 3d screening mammo w/cad. June 13, 2017, bilateral MG 3d screening mammo w/cad. There are scattered fibroglandular densities. There is chronic nodularity bilaterally. No significant changes when compared with prior studies. ASSESSMENT: Benign, BI-RAD 2 RECOMMENDATION: Routine screening mammogram of both breasts in 1 year.
== END | disposition home or self-care (01) ==
LOC: RADMAMWWP 16:15
PROVIDERS: ATTEND Obstetrics & Gynecology
DX: Z78.0 Asymptomatic menopausal state (principal)
CPT/HCPCS: 77063; 77067

== ENCOUNTER → 2021-06-19 | Outpatient (CLI) | payer BC ==
[2021-06-19 17:51] LABS: INR 0.9 (<1.2); Partial Thromboplastin Time 23.7 sec (22.0-30.0); Prothrombin Time 9.8 sec (9.0-12.0)
[2021-06-19 22:30] LABS: Appearance,Urine Clear (Clear); Bilirubin,Urine Negative (Negative); Blood,Urine Negative (Negative); Color,Urine Yellow (Yellow); Ketones,Urine Negative (Negative); Leukocyte Esterase,Urine Negative (Negative); Nitrite,Urine Negative (Negative); Protein,Urine Negative (Negative); Specific Gravity,Urine 1.018 (1.001-1.030); Urobilinogen,Urine 0.2 (0.2,1.0)
[2021-06-19 23:29] LABS: Basophils # (A) 0.08 X 10*3/uL (0.00-0.10); Eosinophils # (A) 0.09 X 10*3/uL (0.04-0.35); Eosinophils % (A) 1.2 %; HCT 40.9 % (37.2-46.3); HGB 13.3 g/dL (12.0-15.0); Immature Grans, Automated 0.3 %; Lymphocytes # (A) 1.89 X 10*3/uL (0.90-5.00); Lymphocytes % (A) 24.2 %; MCH 29.4 pg (27.0-32.0); MCHC 32.5 g/dL (32.0-37.0); MCV 90.3 fL (80.0-97.0); Mean Platelet Volume 11.2 fL (9.5-12.2); Monocytes # (A) 0.41 X 10*3/uL (0.20-1.00); Monocytes % (A) 5.2 %; NRBC Per 100 WBC 0 /100 WBCS (0.0-0.0); Neutrophils # (A) 5.32 X 10*3/uL (1.80-7.70); Neutrophils % (A) 68.1 %; Platelet Count 285 X 10*3/uL (140-440); RBC 4.53 X 10*6/uL (4.10-5.20); RDW 12.9 % (11.5-14.5); WBC 7.81 X 10*3/uL (4.50-10.00)
[2021-06-20 00:38] LABS: ALT 70 U/L (8-44); AST 33 U/L (13-35); African American GFR (CKD) 102.5 (60.0-200.0); Albumin 4.3 g/dL (3.8-4.9); Albumin/Globulin Ratio 1.43 (1.60-3.17); Alkaline Phosphatase 110 U/L (41-126); BUN/Creat Ratio 15.36 Ratio (12.00-20.00); Blood Urea Nitrogen 11.8 mg/dL (9.0-27.0); Calcium 9.4 mg/dL (8.7-10.3); Carbon Dioxide 18.7 mmol/L (20.0-27.5); Chloride 107 mmol/L (96-109); Glucose 114 mg/dL (70-110); Non-African American GFR(CKD) 88.4 (60.0-200.0); Potassium 4.2 mmol/L (3.5-5.5); Sodium 142 mmol/L (135-145); Total Bilirubin <0.15 mg/dL (0.30-1.20); Total Protein 7.4 g/dL (6.2-8.2)
--- NOTE | 2021-06-20 07:18 | XR ---
EXAMINATION TYPE: XR chest 2V DATE OF EXAM: 06/19/2021 COMPARISON: 01/17/2020 HISTORY: Shortness of breath TECHNIQUE: Frontal and lateral views of the chest are obtained. FINDINGS: Scattered senescent parenchymal changes noted. Hyperinflation compatible with COPD. No evidence for infiltrate. No evidence for atelectasis. Heart size is stable. Mediastinal structures are stable and grossly unremarkable. No evidence for hilar prominence. Degenerative changes dorsal spine. IMPRESSION: 1. No evidence for acute pulmonary disease.
== END | disposition home or self-care (01) ==
LOC: LABPAT 15:43
PROVIDERS: ATTEND Orthopaedic Surgery Orthopaedic Surgery of the Spine
DX: Z01.812 Encounter for preprocedural laboratory examination (principal); M47.9 Spondylosis, unspecified; M54.10 Radiculopathy, site unspecified
CPT/HCPCS: 71046; 80053; 81003; 85025; 85610; 85730; 87070

== ENCOUNTER 2022-01-30 13:16 | Emergency (ER) | payer BC ==
[2022-01-30 13:22] VITALS: RESP 16
--- NOTE | 2022-01-30 13:55 | XR ---
Left ankle and left foot HISTORY: Trauma and pain 3 views left ankle, 3 views the left foot Correlation to prior left ankle dated 01/07/2019 There is been interval development of a crescentic calcification distal to the lateral malleolus. The re is associated soft tissue swelling. There is a plantar calcaneal spur present. IMPRESSION: Avulsion injury of the distal fibula, correlate for point tenderness.
--- NOTE | 2022-01-30 14:18 | ED ---
Lower Extremity Injury HPI - General Chief Complaint: Extremity Injury, Lower Stated Complaint: lt ankle injury Time Seen by Provider: 01/30/22 13:24 Source: patient Mode of arrival: wheelchair Limitations: no limitations - History of Present Illness Initial Comments: 56 year-old female patient presents for evaluation of left ankle injury. Patient states yesterday she was walking in her yard when she rolled her ankle on a mound of dirt. States that her ankle completely folded over. She believed she sprained it but it seemed to get more swollen and painful today so thought she should get it checked out. States she is having pain with weight bearing. She did take tylenol last night. Nothing today. She denies numbness or tingling to the foot. She states she did fall down. Denies hitting her head. Denies any neck or back pain. Did recently have back surgery and was advised to not take ibuprofen. No other complaints or injuries. - Related Data Home Medications Medication Instructions Recorded Confirmed Magnesium 400 mg PO DAILY 09/19/19 07/01/21 clonazePAM [KlonoPIN] 2 mg PO BID PRN 09/19/19 07/01/21 Ascorbic Acid [Vitamin C] 500 mg PO DAILY 06/29/21 07/01/21 Ergocalciferol [Vitamin D2 (1250 1,250 mcg PO WEEKLY 06/29/21 07/01/21 Mcg = 26905 Iu)] Fish Oil/Dha/Epa [Fish Oil 1,200 1 each PO DAILY 06/29/21 07/01/21 mg Fish Oil] Rimegepant Sulfate [Nurtec Odt] 75 mg PO DIRECTED PRN 06/29/21 07/01/21 Turmeric Root Extract [Turmeric] 500 mg PO DAILY 06/29/21 07/01/21 Previous Rx's Medication Instructions Recorded HYDROcodone/APAP 10-325MG [Chelsea 1 tab PO Q4HR PRN #42 tab 07/03/21 10-325] Allergies Allergy/AdvReac Type Severity Reaction Status Date / Time buspirone [From BuSpar] Allergy Rapid Verified 01/30/22 13:19 Heart Rate loratadine [From Claritin] Allergy Unknown Verified 01/30/22 13:19 Penicillins Allergy Unknown Verified 01/30/22 13:19 Childhood topiramate [From Topamax] Allergy Unknown Verified 01/30/22 13:19 venlafaxine Allergy Rapid Verified 01/30/22 13:19 Heart Rate cyclobenzaprine AdvReac Rapid Verified 01/30/22 13:19 [From Flexeril] Heart Rate fludrocortisone AdvReac MOOD Verified 01/30/22 13:19 CHANGES midodrine AdvReac HEART RATE Verified 01/30/22 13:19 DECREASES pseudoephedrine AdvReac Rapid Verified 01/30/22 13:19 [From Claritin-D] Heart Rate Review of Systems ROS Statement: Those systems with pertinent positive or pertinent negative responses have been documented in the HPI. ROS Other: All systems not noted in ROS Statement are negative. Past Medical History Past Medical History: No Reported History Additional Past Medical History / Comment(s): sick sinus syndrome. 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, PACEMAKER History of Any Multi-Drug Resistant Organisms: None Reported Past Surgical History: Orthopedic Surgery, Pacemaker, Tonsillectomy Additional Past Surgical History / Comment(s): Rt hand surgery Past Anesthesia/Blood Transfusion Reactions: No Reported Reaction Additional Past Anesthesia/Blood Transfusion Reaction / Comment(s): BP bottomed out after pacemaker insertion Type of Cardiac Device: Permanent Pacemaker Device Placement Date:: 2016 Past Psychological History: Anxiety, Depression Smoking Status: Former smoker Past Alcohol Use History: Occasional Past Drug Use History: None Reported - Past Family History Father Family Medical History: Cancer, Coronary Artery Disease (CAD) Mother Family Medical History: Coronary Artery Disease (CAD), Hypertension General Exam Limitations: no limitations General appearance: alert, in no apparent distress, other (This is a well- developed, well-nourished adult female. In no acute distress.) Eye exam: Present: normal appearance, PERRL, EOMI. Absent: scleral icterus, conjunctival injection, periorbital swelling ENT exam: Present: normal exam, normal oropharynx, mucous membranes moist Respiratory exam: Present: normal lung sounds bilaterally. Absent: respiratory distress, wheezes, rales, rhonchi, stridor Cardiovascular Exam: Present: regular rate, normal rhythm, normal heart sounds. Absent: systolic murmur, diastolic murmur, rubs, gallop, clicks GI/Abdominal exam: Present: soft, normal bowel sounds. Absent: distended, tenderness, guarding, rebound, rigid Neurological exam: Present: alert, oriented X3, CN II-XII intact Psychiatric exam: Present: normal affect, normal mood Skin exam: Present: warm, dry, intact, normal color. Absent: rash Course Vital Signs 01/30/22 13:20 Temperature 98 F Pulse Rate 79 Respiratory 16 Rate Blood Pressure 139/81 O2 Sat by Pulse 98 Oximetry Procedures - Orthopedic Splinting/Casting Injury #1 Side: left Lower Extremity Injury Location: short leg Lower Extremity Immobilizer: stirrup splint, Denys wrap, synthetic pre-padded splint Medical Decision Making - Medical Decision Making 56 year-old female patient presented for evaluation of left ankle pain after a rolling injury yesterday. Physical exam revealed soft tissue swelling and ecchymosis surrounding the left lateral malleolus. Neurovascular status is intact. Pedal pulse 2+. XR of the left ankle showed possible avulsion injury to the left fibula. Point tenderness confirms this likely diagnosis. She did refuse any pain medication while here. She was placed in stirrup OCL. Neurovascular status intact after splint application. She'll be discharged follow up with laboratory specialist for further evaluation as soon as possible. She is instructed to call on Tuesday for an appointment. She is instructed to leave splint in place until follow-up. She was offered crutches but would rather use walker at home. Return parameters were discussed in detail. She verbalizes understanding and agrees with this plan. My attending is Dr. Blair. - Radiology Data Radiology results: report reviewed, image reviewed 3 views of the left ankle and foot were obtained. Report was reviewed in its entirety. Impression by Dr. Simeon shows avulsion injury of the distal fibula, correlate for point tenderness. Disposition Clinical Impression: Closed avulsion fracture of distal end of left fibula Disposition: HOME SELF-CARE Condition: Good Instructions (If sedation given, give patient instructions): Ankle Fracture (ED), Crutch Instructions (ED), Splint Care (ED) Additional Instructions: Rest, ice, elevate the ankle. Apply ice for 20 minutes at a time at least 4-5 times per day. Leave splint in place until follow-up with orthopedics. Take Tylenol or Motrin for pain control. Return the emergency department for any new, worsening, or concerning symptoms. Is patient prescribed a controlled substance at d/c from ED?: No If prescribed controlled substance>3 days was MAPS reviewed?: Prescribed <3 Days Referrals: Wojciech Rosa III, MD [Primary Care Provider] - 1-2 days Yolanda Rangel DO [Doctor of Osteopathic Medicine] - 1-2 days Time of Disposition: 14:17
[2022-01-30] MEDS ORDERED: ACET/COD 300 MG/30 MG STARTER PACK 6 TAB BTL PO STA (14:37)
[2022-01-30 14:53] VITALS: BP 138/80; PULSE 72; TEMP 97.6
== END 2022-01-30 14:53 | disposition home or self-care (01) ==
LOC: EC 13:16
DX: S82.832A Other fracture of upper and lower end of left fibula, initial encounter for closed fracture (principal); Z87.891 Personal history of nicotine dependence; Z88.0 Allergy status to penicillin; Z88.8 Allergy status to other drugs, medicaments and biological substances; Z88.3 Allergy status to other anti-infective agents; W01.0XXA Fall on same level from slipping, tripping and stumbling without subsequent striking against object, initial encounter; Y93.01 Activity, walking, marching and hiking
CPT/HCPCS: 29125; 99283

== ENCOUNTER → 2022-02-08 | Outpatient (CLI) | payer BC ==
--- NOTE | 2022-02-09 18:51 | MM ---
Reason for Exam: Screening (asymptomatic). Last screening mammogram was performed 12 month(s) ago. Patient History: Menarche at age 15. First Full-Term at age 23. Postmenopausal. 06/14/2017, Ultrasound-Guided Core Biopsy on the Left side. Risk Values: Francheska 5 year model risk: 1.2%. NCI Lifetime model risk: 8.8%. Prior Study Comparison: 06/13/2017 Bilateral Screening Mammogram, [facility]. 06/23/2018 Bilateral Screening Mammogram, [facility]. 02/04/2021 Bilateral Screening Mammogram, [facility]. Tissue Density: There are scattered fibroglandular densities. Findings: Analyzed By CAD. Chronic nodularity central right cc view. A few small benign oil cyst calcifications on the left. No significant change from prior exams. Overall Assessment: Benign, BI-RAD 2 Management: Screening Mammogram of both breasts in 1 year. 1. Patient should continue monthly self breast exams. 2. A clinical breast exam by your physician is recommended on an annual basis. 3. This exam should not preclude additional follow-up of suspicious palpable abnormalities. Electronically signed and approved by: Madison Bazan M.D. Radiologist
== END | disposition home or self-care (01) ==
LOC: RADMAMWWP 16:31
PROVIDERS: ATTEND Obstetrics & Gynecology
DX: Z12.31 Encounter for screening mammogram for malignant neoplasm of breast (principal); Z78.0 Asymptomatic menopausal state
CPT/HCPCS: 77063; 77067

== ENCOUNTER 2022-04-27 19:42 | Observation (INO) | payer BC ==
[2022-04-27] MEDS ORDERED: SODIUM CHLORIDE 0.9% 500 ML 500 ML IV STA (20:13)
--- NOTE | 2022-04-27 20:19 | ED ---
Arrhythmia/Palpitations HPI - General Chief Complaint: Arrhythmia/Palpitations Stated Complaint: tachycardia Time Seen by Provider: 04/27/22 19:54 Source: patient, family Mode of arrival: ambulatory Limitations: no limitations - History of Present Illness Initial Comments: This patient is a 56-year-old woman with history of sick sinus syndrome, who has had a pacer placed years ago. She states that going back a number of weeks she has noted episodes of high heart rate. She states that today it was worse than it has been she noticed her pulse was up to 150 at times. She states that she has felt some anxiety related to this but not really having any other symptoms. No diaphoresis, chest pain, dyspnea, nausea or vomiting. No syncope. Patient s tates other than this she feels well. MD Complaint: "heart racing" -: week(s) Context: occurred during rest Arrhythmia History: pacemaker Associated Symptoms: denies other symptoms - Related Data Home Medications Medication Instructions Recorded Confirmed Ascorbic Acid [Vitamin C] 500 mg PO DAILY 06/29/21 04/27/22 Ergocalciferol [Vitamin D2 (1250 1,250 mcg PO DUONG 06/29/21 04/27/22 Mcg = 92132 Iu)] Fish Oil/Dha/Epa [Fish Oil 1,200 1 cap PO DAILY 06/29/21 04/27/22 mg Fish Oil] Rimegepant Sulfate [Nurtec Odt] 75 mg PO DAILY PRN 06/29/21 04/27/22 Calcium Carbonate [Calcium] 600 mg PO BID 04/27/22 04/27/22 Magnesium Oxide [Mag-Ox] 400 mg PO DAILY 04/27/22 04/27/22 Previous Rx's Medication Instructions Recorded Acetaminophen Tab [Tylenol] 650 mg PO Q6HR PRN tab 04/28/22 Allergies Allergy/AdvReac Type Severity Reaction Status Date / Time buspirone [From BuSpar] Allergy Rapid Verified 04/27/22 22:39 Heart Rate escitalopram [From Lexapro] Allergy Rapid Verified 04/27/22 22:39 Heart Rate loratadine [From Claritin] Allergy Unknown Verified 04/27/22 22:39 Penicillins Allergy Unknown Verified 04/27/22 22:39 Childhood topiramate [From Topamax] Allergy Unknown Verified 04/27/22 22:39 venlafaxine Allergy Rapid Verified 04/27/22 22:39 Heart Rate cyclobenzaprine AdvReac Rapid Verified 04/27/22 22:39 [From Flexeril] Heart Rate fludrocortisone AdvReac MOOD Verified 04/27/22 22:39 CHANGES midodrine AdvReac HEART RATE Verified 04/27/22 22:39 DECREASES pseudoephedrine AdvReac Rapid Verified 04/27/22 22:39 [From Claritin-D] Heart Rate Review of Systems ROS Statement: Those systems with pertinent positive or pertinent negative responses have been documented in the HPI. ROS Other: All systems not noted in ROS Statement are negative. Constitutional: Denies: fever, chills Respiratory: Denies: cough, dyspnea Cardiovascular: Reports: palpitations. Denies: chest pain, orthopnea, edema, syncope Gastrointestinal: Denies: abdominal pain, nausea, vomiting, melena, hematochezia Genitourinary: Denies: dysuria, hematuria Musculoskeletal: Denies: back pain Skin: Denies: rash Neurological: Denies: headache, weakness Psychiatric: Reports: anxiety Past Medical History Past Medical History: No Reported History Additional Past Medical History / Comment(s): sick sinus syndrome. 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, PACEMAKER History of Any Multi-Drug Resistant Organisms: None Reported Past Surgical History: Orthopedic Surgery, Pacemaker, Tonsillectomy Additional Past Surgical History / Comment(s): Rt hand surgery Past Anesthesia/Blood Transfusion Reactions: No Reported Reaction Additional Past Anesthesia/Blood Transfusion Reaction / Comment(s): BP bottomed out after pacemaker insertion Type of Cardiac Device: Permanent Pacemaker Device Placement Date:: 2016 Past Psychological History: Anxiety, Depression Smoking Status: Former smoker Past Alcohol Use History: Occasional Past Drug Use History: None Reported - Past Family History Father Family Medical History: Cancer, Coronary Artery Disease (CAD) Mother Family Medical History: Coronary Artery Disease (CAD), Hypertension General Exam Limitations: no limitations General appearance: alert, in no apparent distress Head exam: Present: atraumatic, normocephalic Eye exam: Present: normal appearance. Absent: scleral icterus, conjunctival injection Neck exam: Present: normal inspection Respiratory exam: Present: normal lung sounds bilaterally. Absent: respiratory distress, wheezes, rales, rhonchi, stridor Cardiovascular Exam: Present: regular rate, normal rhythm, normal heart sounds. Absent: systolic murmur, diastolic murmur, rubs, gallop GI/Abdominal exam: Present: soft. Absent: distended, tenderness, guarding, rebound, rigid, mass Extremities exam: Present: normal inspection, normal capillary refill. Absent: pedal edema, calf tenderness Back exam: Present: normal inspection. Absent: CVA tenderness (R), CVA tenderness (L) Neurological exam: Present: alert Skin exam: Present: warm, dry, intact, normal color. Absent: rash Course Vital Signs 04/27/22 04/27/22 04/27/22 19:47 22:00 23:30 Temperature 98 F Pulse Rate 88 72 75 Respiratory 16 16 16 Rate Blood Pressure 165/96 134/72 120/70 O2 Sat by Pulse 97 96 95 Oximetry EKG Findings - EKG Results: EKG: interpreted by EUNICE GABRIEL, sinus rhythm (Rate 82 bpm), normal axis, normal QRS, normal ST/T - PR, Pacemaker, Normal: Normal tracing: normal tracing Medical Decision Making - Medical Decision Making This patient is a 56-year-old woman presenting after having multiple recent episodes of tachycardia, today reaching up to a reportedly 150 bpm. Thorough cardiac workup is pursued. Chest x-ray obtained and I interpreted as showing No pulmonary infiltrate, cardiomegaly, or congestive heart failure. Computed tomography scan is obtained after a positive d-dimer, I interpret this as showing no acute pulmonary embolism, no pulmonary infiltrate Patient's device is interrogated and no report of sustained arrhythmia. Was pt. sent in by a medical professional or institution? @ -No Did you speak to anyone other than the patient for history? @ -[Family Did you review nursing and triage notes? @ -[agree Were old charts reviewed? @ -[No Differential Diagnosis? @ -[Differential Chest Pain: Stable Angina, Unstable Angina, STEMI, NSTEMI Aortic Dissection, Pneumothorax, Musculoskeletal, pulmonary embolism, cardiac arrhythmia this is not meant to be an all-inclusive list. EKG interpreted by me (3pts min.)? @ -[See chart X-rays interpreted by me (1pt min.)? @ -[See chart CT interpreted by me (1pt min.)? @ -[See chart U/S interpreted by me (1pt. min.)? @ -[none] What testing was considered but not performed? (CT, X-rays, U/S, labs)? Why? @ [None What meds were considered but not given? Why? @ -[none] Did you discuss the management of the patient with other professionals? @ -[Admitting physician Did you reconcile home meds? @ -[none] Was smoking cessation discussed for >3mins.? @ -[none] Was critical care preformed (if so, how long)? @ -[none] Were there social determinants of health that impacted care today? How? (Homelessness, low income, unemployed, alcoholism, drug addiction, transportation, low edu. Level, literacy, decrease access to med. care, group home, re hab)? @ -[None Was there de-escalation of care discussed even if they declined? (Discuss DNR or withdrawal of care, Hospice)? @ -[No What co-morbidities impacted this encounter? (DM, HTN, Smoking, COPD, CAD, Cancer, CVA, Hep., AIDS, mental health diagnosis, sleep apnea, morbid obesity)? @ -[History of sick sinus syndrome/pacer implantation Was patient admitted / discharged? @ -[Admitted Undiagnosed new problem with uncertain prognosis? @ -[none] Drug Therapy requiring intensive monitoring for toxicity (Heparin, Nitro, Insulin, Cardizem)? @ -[none] Were any procedures done? @ -[none] Diagnosis/symptom? @ -[1. Tachycardia Acute, or Chronic, or Acute on Chronic? @ -[Acute on chronic Uncomplicated (without systemic symptoms) or Complicated (systemic symptoms)? @ -[Unconjugated Side effects of treatment? @ -[none] Exacerbation, Progression, or Severe Exacerbation] @ -[no] Poses a threat to life or bodily function? @ -[no] - Lab Data Result diagrams: 04/27/22 20:25 04/27/22 20:25 Lab Results 04/27/22 04/27/22 04/27/22 Range/Units 20:25 20:25 20:25 WBC 10.1 (3.8-10.6) k/uL RBC 4.54 (3.80-5.40) m/uL Hgb 14.0 (11.4-16.0) gm/dL Hct 40.3 (34.0-46.0) % MCV 88.9 (80.0-100.0) fL MCH 30.9 (25.0-35.0) pg MCHC 34.8 (31.0-37.0) g/dL RDW 12.3 (11.5-15.5) % Plt Count 280 (150-450) k/uL MPV 8.5 Neutrophils % 81 % Lymphocytes % 12 % Monocytes % 4 % Eosinophils % 1 % Basophils % 1 % Neutrophils # 8.2 H (1.3-7.7) k/uL Lymphocytes # 1.2 (1.0-4.8) k/uL Monocytes # 0.4 (0-1.0) k/uL Eosinophils # 0.1 (0-0.7) k/uL Basophils # 0.1 (0-0.2) k/uL PT 9.9 (9.0-12.0) sec INR 0.9 (<1.2) APTT 23.2 (22.0-30.0) sec D-Dimer 0.88 H (<0.60) mg/L FEU Sodium 139 (137-145) mmol/L Potassium 3.9 (3.5-5.1) mmol/L Chloride 107 (98-107) mmol/L Carbon Dioxide 26 (22-30) mmol/L Anion Gap 6 mmol/L BUN 17 (7-17) mg/dL Creatinine 0.72 (0.52-1.04) mg/dL Est GFR (CKD-EPI)AfAm >90 (>60 ml/min/1.73 sqM) Est GFR (CKD-EPI)NonAf >90 (>60 ml/min/1.73 sqM) Glucose 123 H (74-99) mg/dL Calcium 9.7 (8.4-10.2) mg/dL Magnesium 2.0 (1.6-2.3) mg/dL Total Bilirubin 0.2 (0.2-1.3) mg/dL AST 18 (14-36) U/L ALT 17 (4-34) U/L Alkaline Phosphatase 75 (38-126) U/L Troponin I (0.000-0.034) ng/mL Total Protein 6.8 (6.3-8.2) g/dL Albumin 4.0 (3.5-5.0) g/dL TSH 2.080 (0.465-4.680) mIU/L Urine Color Urine Appearance (Clear) Urine pH (5.0-8.0) Ur Specific Vera (1.001-1.035) Urine Protein (Negative) Urine Glucose (UA) (Negative) Urine Ketones (Negative) Urine Blood (Negative) Urine Nitrite (Negative) Urine Bilirubin (Negative) Urine Urobilinogen (<2.0) mg/dL Ur Leukocyte Esterase (Negative) 04/27/22 04/27/22 Range/Units 20:25 20:25 WBC (3.8-10.6) k/uL RBC (3.80-5.40) m/uL Hgb (11.4-16.0) gm/dL Hct (34.0-46.0) % MCV (80.0-100.0) fL MCH (25.0-35.0) pg MCHC (31.0-37.0) g/dL RDW (11.5-15.5) % Plt Count (150-450) k/uL MPV Neutrophils % % Lymphocytes % % Monocytes % % Eosinophils % % Basophils % % Neutrophils # (1.3-7.7) k/uL Lymphocytes # (1.0-4.8) k/uL Monocytes # (0-1.0) k/uL Eosinophils # (0-0.7) k/uL Basophils # (0-0.2) k/uL PT (9.0-12.0) sec INR (<1.2) APTT (22.0-30.0) sec D-Dimer (<0.60) mg/L FEU Sodium (137-145) mmol/L Potassium (3.5-5.1) mmol/L Chloride (98-107) mmol/L Carbon Dioxide (22-30) mmol/L Anion Gap mmol/L BUN (7-17) mg/dL Creatinine (0.52-1.04) mg/dL Est GFR (CKD-EPI)AfAm (>60 ml/min/1.73 sqM) Est GFR (CKD-EPI)NonAf (>60 ml/min/1.73 sqM) Glucose (74-99) mg/dL Calcium (8.4-10.2) mg/dL Magnesium (1.6-2.3) mg/dL Total Bilirubin (0.2-1.3) mg/dL AST (14-36) U/L ALT (4-34) U/L Alkaline Phosphatase (38-126) U/L Troponin I <0.012 (0.000-0.034) ng/mL Total Protein (6.3-8.2) g/dL Albumin (3.5-5.0) g/dL TSH (0.465-4.680) mIU/L Urine Color Light Yellow Urine Appearance Clear (Clear) Urine pH 5.5 (5.0-8.0) Ur Specific Vera 1.013 (1.001-1.035) Urine Protein Negative (Negative) Urine Glucose (UA) Negative (Negative) Urine Ketones Negative (Negative) Urine Blood Negative (Negative) Urine Nitrite Negative (Negative) Urine Bilirubin Negative (Negative) Urine Urobilinogen <2.0 (<2.0) mg/dL Ur Leukocyte Esterase Negative (Negative) Disposition Clinical Impression: Tachycardia Disposition: ADMITTED IP TO THIS [facility] Condition: Stable Is patient prescribed a controlled substance at d/c from ED?: No
[2022-04-27 20:40] LABS: HCT 40.3 % (34.0-46.0); MCH 30.9 pg (25.0-35.0); MCHC 34.8 g/dL (31.0-37.0); MCV 88.9 fL (80.0-100.0); RBC 4.54 m/uL (3.80-5.40); WBC 10.1 k/uL (3.8-10.6)
[2022-04-27 20:41] LABS: Basophils # (A) 0.1 k/uL (0-0.2); Basophils % (A) 1 %; Eosinophils # (A) 0.1 k/uL (0-0.7); Eosinophils % (A) 1 %; Lymphocytes # (A) 1.2 k/uL (1.0-4.8); Lymphocytes % (A) 12 %; Mean Platelet Volume 8.5; Monocytes # (A) 0.4 k/uL (0-1.0); Monocytes % (A) 4 %; Neutrophils # (A) 8.2 k/uL (1.3-7.7); Neutrophils % (A) 81 %; Platelet Count 280 k/uL (150-450); RDW 12.3 % (11.5-15.5)
[2022-04-27 20:48] LABS: Appearance,Urine Clear (Clear); Bilirubin,Urine Negative (Negative); Blood,Urine Negative (Negative); Color,Urine Light Yellow; Glucose,Urine (UA) Negative (Negative); Ketones,Urine Negative (Negative); Leukocyte Esterase,Urine Negative (Negative); Nitrite,Urine Negative (Negative); PH, Urine 5.5 (5.0-8.0); Protein,Urine Negative (Negative); Specific Gravity,Urine 1.013 (1.001-1.035); Urobilinogen,Urine <2.0 mg/dL (<2.0)
[2022-04-27 20:57] LABS: INR 0.9 (<1.2); Partial Thromboplastin Time 23.2 sec (22.0-30.0); Prothrombin Time 9.9 sec (9.0-12.0)
[2022-04-27 20:59] LABS: ALT 17 U/L (4-34); AST 18 U/L (14-36); African American GFR (CKD) >90 (>60 ml/min/1.73 sqM); Alkaline Phosphatase 75 U/L (38-126); Anion Gap 6 mmol/L; Blood Urea Nitrogen 17 mg/dL (7-17); Calcium 9.7 mg/dL (8.4-10.2); Carbon Dioxide 26 mmol/L (22-30); Chloride 107 mmol/L (98-107); Glucose 123 mg/dL (74-99); Non-African American GFR(CKD) >90 (>60 ml/min/1.73 sqM); Potassium 3.9 mmol/L (3.5-5.1); Sodium 139 mmol/L (137-145); Total Bilirubin 0.2 mg/dL (0.2-1.3); Total Protein 6.8 g/dL (6.3-8.2)
--- NOTE | 2022-04-27 21:06 | XR ---
EXAMINATION TYPE: XR chest 2V DATE OF EXAM: 04/27/2022 8:46 PM COMPARISON: Chest radiographs from 07/03/2021 TECHNIQUE: XR chest 2V Frontal and lateral views of the chest. CLINICAL INDICATION:Female, 56 years old with history of dysrhythmia; FINDINGS: Lungs/Pleura: There is no evidence of pleural effusion, focal consolidation, or pneumothorax. Pulmonary vascularity: Unremarkable. Heart/mediastinum: Cardiomediastinal silhouette is unremarkable. Two lead cardiac conduction device o verlying the right hemithorax with lead tips projecting over the right ventricle and right atrium. Musculoskeletal: No acute osseous pathology. IMPRESSION: No acute cardiopulmonary disease/process.
--- NOTE | 2022-04-27 22:26 | CT ---
EXAMINATION TYPE: CT chest angio for PE DATE OF EXAM: 04/27/2022 COMPARISON: None HISTORY: elevate d dimer CT DLP: 290.6 mGycm Automated exposure control for dose reduction was used. CONTRAST: Performed with IV Contrast, patient injected with 100ml mL of Isovue 370. There are 3-D post processed images. The lungs are clear of infiltrate. Heart size is normal. No pericardial effusion. There is no mediast inal adenopathy. There are no hilar masses. There is normal contrast opacification of the pulmonary arteries. No filling defect. Thoracic aorta is intact. No aneurysm or dissection. The thoracic spine is intact. No compression fra cture. Sternum is intact. The upper abdominal soft tissues are intact. IMPRESSION: No evidence of pulmonary embolism. Normal exam.
[2022-04-28] MEDS ORDERED: ACETAMINOPHEN TAB 325 MG TAB PO PRN (00:01)
[2022-04-28] MEDS ORDERED: NALOXONE 0.4 MG/ML 1 ML VIAL IV PRN (00:01)
[2022-04-28] MEDS ORDERED: SODIUM CHLORIDE 0.9% 1,000 ML IV SCH (00:15)
[2022-04-28 07:29] VITALS: BP 121/72; PULSE 70; RESP 16; TEMP 97.7
[2022-04-28] MEDS ORDERED: FAMOTIDINE 20 MG TAB PO SCH (09:00)
--- NOTE | 2022-04-28 09:17 | P.CRDCN ---
History of Present Illness Consult date: 04/28/22 Reason for Consult (text): Tachyarrhythmia History of present illness: History of present illness: This is a 56-year-old female patient of Dr. Orellana with past medical history of sick sinus syndrome status post pacemaker [place] [address] Perera. Patient also has past medical history of migraine headaches. Patient states that she has had 6-8 episodes in the past month of palpitations. Yesterday she had a significant episode where was up to 150 bpm. No chest pain, nausea, vomiting, diaphoresis. No syncopal episodes. No lightheadedness or dizziness. By the time she arrived to the emergency center yesterday, she had pounding in her chest but did not feel that her heart was beating fast. EKG normal sinus rhythm. Telemetry tracings sinus rhythm with no episodes of tachycardia CTA of the chest showed no pulmonary embolism. Chest x-ray normal CBC unremarkable. D-dimer 0.88. BUN 17 and creatinine 0.72. Troponin negative 3. Liver function tests normal. TSH 2.08. Urinalysis negative Review Of Systems: At the time of my evaluation: Constitutional: No fever, no chills. No weakness, fatigue or lethargy. EENT: No headache. No dizziness. Lungs: No shortness of breath, cough, no sputum production. No wheezing. Cardiovascular: No chest pain, no lower extremity edema. No palpitations. No paroxysmal nocturnal dyspnea. No orthopnea. No lightheadedness or dizziness. No syncopal episodes. Abdominal: No abdominal pain. No nausea, vomiting. No diarrhea. No bloody or tarry stools. Genitourinary: No dysuria. No urinary retention. Musculoskeletal: No myalgias. No muscle weakness, no frequent falls. No back pain. No neck pain. Integumentary: No wounds. No rash. No unusual bruising. Neurologic: No aphasia. No facial droop. No change in mentation. No head injury. No headache. Psychiatric: No depression. No anxiety. Endocrine: No abnormal blood sugars. Physical examination: Gen: This is a 56-year-old female. She is resting in bed appears to be comfortable VS: reviewed HEENT: Head is atraumatic, normocephalic. Pupils equal, round. Sclerae is anicteric. NECK: Supple. No JVD. No lymphadenopathy. No thyromegaly. LUNGS: Clear to auscultation. No wheezes or rhonchi. No intercostal retractions. HEART: Regular rate and rhythm. No murmur. ABDOMEN: Soft. Bowel sounds are present. No masses. No tenderness. EXTREMITIES: No pedal edema. No calf tenderness. NEUROLOGICAL: Patient is awake, alert and oriented x3. Cranial nerves 2 through 12 are grossly intact. Assessment: Tachycardia History of sick sinus syndrome status post pacemaker implantation in 2016 Migraine headaches Plan: Obtain event monitor for 2 weeks Patient is cleared for discharge home today and follow up with Dr. Orellana in 3 weeks. Thank you kindly for this consultation. Nurse practitioner note has been reviewed, I agree with documented findings and plan of care. Patient was seen and examined. Past Medical History Past Medical History: No Reported History Additional Past Medical History / Comment(s): sick sinus syndrome. 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, PACEMAKER History of Any Multi-Drug Resistant Organisms: None Reported Past Surgical History: Orthopedic Surgery, Pacemaker, Tonsillectomy Additional Past Surgical History / Comment(s): Rt hand surgery, spinal fusion 2021 Past Anesthesia/Blood Transfusion Reactions: No Reported Reaction Additional Past Anesthesia/Blood Transfusion Reaction / Comment(s): BP bottomed out after pacemaker insertion Type of Cardiac Device: Permanent Pacemaker Device Placement Date:: 2016 Past Psychological History: Anxiety, Depression Smoking Status: Former smoker Past Alcohol Use History: Occasional Additional Past Alcohol Use History / Comment(s): quit smoking 1999 Past Drug Use History: None Reported - Past Family History Father Family Medical History: Cancer, Coronary Artery Disease (CAD) Mother Family Medical History: Coronary Artery Disease (CAD), Hypertension Medications and Allergies Home Medications Medication Instructions Recorded Confirmed Type Ascorbic Acid [Vitamin C] 500 mg PO DAILY 06/29/21 04/27/22 History Ergocalciferol [Vitamin D2 (1250 1,250 mcg PO DUONG 06/29/21 04/27/22 History Mcg = 02402 Iu)] Fish Oil/Dha/Epa [Fish Oil 1,200 1 cap PO DAILY 06/29/21 04/27/22 History mg Fish Oil] Rimegepant Sulfate [Nurtec Odt] 75 mg PO DAILY PRN 06/29/21 04/27/22 History Calcium Carbonate [Calcium] 600 mg PO BID 04/27/22 04/27/22 History Magnesium Oxide [Mag-Ox] 400 mg PO DAILY 04/27/22 04/27/22 History Allergies Allergy/AdvReac Type Severity Reaction Status Date / Time buspirone [From BuSpar] Allergy Rapid Verified 04/27/22 22:39 Heart Rate escitalopram [From Lexapro] Allergy Rapid Verified 04/27/22 22:39 Heart Rate loratadine [From Claritin] Allergy Unknown Verified 04/27/22 22:39 Penicillins Allergy Unknown Verified 04/27/22 22:39 Childhood topiramate [From Topamax] Allergy Unknown Verified 04/27/22 22:39 venlafaxine Allergy Rapid Verified 04/27/22 22:39 Heart Rate cyclobenzaprine AdvReac Rapid Verified 04/27/22 22:39 [From Flexeril] Heart Rate fludrocortisone AdvReac MOOD Verified 04/27/22 22:39 CHANGES midodrine AdvReac HEART RATE Verified 04/27/22 22:39 DECREASES pseudoephedrine AdvReac Rapid Verified 04/27/22 22:39 [From Claritin-D] Heart Rate Physical Exam Vitals: Vital Signs Temp Pulse Pulse Resp BP BP Pulse Ox 04/28/22 07:07 97 04/28/22 07:00 97.7 F 70 16 121/72 97 04/28/22 01:00 98.1 F 67 18 139/68 97 04/27/22 23:30 75 16 120/70 95 04/27/22 22:00 72 16 134/72 96 04/27/22 19:47 98 F 88 16 165/96 97 Intake and Output 04/27/22 04/28/22 04/28/22 22:59 06:59 14:59 Other: Voiding Method Toilet # Voids 2 Weight 74.843 kg 74.843 kg Results 04/27/22 20:25 04/27/22 20:25 Cardiac Enzymes 04/27/22 04/27/22 04/28/22 Range/Units 20:25 20:25 03:28 AST 18 (14-36) U/L Troponin I <0.012 <0.012 (0.000-0.034) ng/mL 04/28/22 Range/Units 05:55 AST (14-36) U/L Troponin I <0.012 (0.000-0.034) ng/mL Coagulation 04/27/22 Range/Units 20:25 PT 9.9 (9.0-12.0) sec APTT 23.2 (22.0-30.0) sec CBC 04/27/22 Range/Units 20:25 WBC 10.1 (3.8-10.6) k/uL RBC 4.54 (3.80-5.40) m/uL Hgb 14.0 (11.4-16.0) gm/dL Hct 40.3 (34.0-46.0) % Plt Count 280 (150-450) k/uL Comprehensive Metabolic Panel 04/27/22 Range/Units 20:25 Sodium 139 (137-145) mmol/L Potassium 3.9 (3.5-5.1) mmol/L Chloride 107 (98-107) mmol/L Carbon Dioxide 26 (22-30) mmol/L BUN 17 (7-17) mg/dL Creatinine 0.72 (0.52-1.04) mg/dL Glucose 123 H (74-99) mg/dL Calcium 9.7 (8.4-10.2) mg/dL AST 18 (14-36) U/L ALT 17 (4-34) U/L Alkaline Phosphatase 75 (38-126) U/L Total Protein 6.8 (6.3-8.2) g/dL Albumin 4.0 (3.5-5.0) g/dL Current Medications Generic Name Dose Route Start Last Admin Trade Name Freq PRN Reason Stop Dose Admin Acetaminophen 650 mg 04/28/22 00:01 Acetaminophen Tab 325 Mg Tab PO Q6HR PRN Mild Pain or Fever > 100.5 Famotidine 20 mg 04/28/22 09:00 Famotidine 20 Mg Tab PO BID MOISES Sodium Chloride 1,000 mls @ 20 mls/hr 04/28/22 00:15 04/28/22 00:26 Saline 0.9% IV 20 mls/hr .Q24H MOISES Administration Naloxone HCl 0.2 mg 04/28/22 00:01 Naloxone 0.4 Mg/Ml 1 Ml Vial IV Q2M PRN Opioid Reversal Intake and Output 04/27/22 04/28/22 04/28/22 22:59 06:59 14:59 Other: Voiding Method Toilet # Voids 2 Weight 74.843 kg 74.843 kg 04/27/22 20:25 04/27/22 20:25
--- NOTE | 2022-04-28 14:29 | P.HPIM ---
History of Present Illness H&P Date: 04/28/22 This is a pleasant 56-year-old female who presented to the emergency department with increased heart rate and felt like her heart was pounding and having some increased anxiety. Patient reports she follows with Dr. Rosa in the outpatient setting along with Dr. Orellana for cardiology with a past medical history of sick sinus syndrome and had a pacemaker placed on the right years ago. Patient also reports she does have some anxiety and also some depression. Patient reports she used to smoke and occasionally drinks although very rarely and denies any other illicit drug use. Patient was admitted with a tachyarrhythmia for cardiology to evaluate. Patient was continued on telemetry monitoringand maintaining sinus rhythm. X-ray in the ER showed no acute cardiopulmonary process or disease. Labs were done including troponins 3 which were negative although d-dimer was mildly elevated at 0.88 and CTA was done which showed no evidence of PE. Pacemaker was also interrogated yesterday even ing. EKG at the time was normal sinus rhythm. Review Of Systems: Constitutional: No fever, no chills, no night sweats. No weight change. No weakness, fatigue or lethargy. No daytime sleepiness. EENT: No headache. No blurred vision or double vision, no loss of vision. No loss of Hearing, no ringing in the ears, no dizziness. No nasal drainage or congestion. No epistaxis. No sore throat. Lungs: No shortness of breath, cough, no sputum production. No wheezing. Cardiovascular: No chest pain, no lower extremity edema. No palpitations. No paroxysmal nocturnal dyspnea. No orthopnea. No lightheadedness or dizziness. No syncopal episodes. Reported chest pounding and elevated heart rates, currently resolved Abdominal: No abdominal pain. No nausea, vomiting. No diarrhea. No consti pation. No bloody or tarry stools.. No loss of appetite. Genitourinary: No dysuria, increased frequency, urgency. No urinary retention. Musculoskeletal: No myalgias. No muscle weakness, no gait dysfunction, no frequent falls. No back pain. No neck pain. Integumentary: No wounds, no lesions. No rash or pruritus. No unusual bruising. No change in hair or nails. Neurologic: No aphasia. No facial droop. No change in mentation. No head injury. No headache. No paralysis. No paresthesia. Psychiatric: No depression. Reports anxiety. No mood swings. Endocrine: No abnormal blood sugars. No weight change. No excessive sweating or thirst. No cold intolerance. PHYSICAL EXAMINATION: GENERAL: The patient is alert and oriented x4, Well developed, well nourished. HEENT: Pupils are round and equally reacting to light. EOMI. no scleral icterus. No conjunctival pallor. Normocephalic, atraumatic. No pharyngeal erythema. No thyromegaly. CARDIOVASCULAR: S1 and S2 muffled PULMONARY: diminished breath sounds bilaterally with no wheezing or rhonchi noted. ABDOMEN: soft. Nontender on exam. obese. non-distended, normoactive bowel sounds. No palpable organomegaly. MUSCULOSKELETAL: No joint swelling or deformity. EXTREMITIES: No cyanosis, clubbing, or pedal edema. NEUROLOGICAL: Gross neurological examination did not reveal any focal deficits. Diffuse weakness SKIN: No rashes. Assessment: Tachycardia History of sick sinus syndrome post pacemaker placement in 2017 History of anxiety/depression Elevated d-dimer with no evidence of PE on CT Former smoker GI prophylaxis DVT prophylaxis Full code Plan: Recommend to continue with current medications and management and cardiology has been consulted. Cardiology evaluated the patient recommending an event monitor and close outpatient follow-up with her websphere consultant Dr. Orellana in 2-3 weeks Recommend continue telemetry monitoring while awaiting the event monitor, currently sinus rhythm and denies any further episodes of palpitations Encourage the patient to follow-up with primary care provider as well as cardiology as scheduled Discussed with the patient about avoiding increased stressors and patient reports she recently was weaned off her anti-anxiety medications approximately 2 months ago and has not felt well since. Again stressed the importance to follow-up with primary care provider this week. Patient reports the feeling well currently and anxious to go home and has been cleared by cardiology. Patient will be discharged today after event monitor is placed The impression and plan of care has been dictated by Laney Lynch, nurse practitioner as directed. Dr. Sophia MD I have performed a history and examination and MDM of this patient, discussed the same with the dictator, and agree with the dictator's assessment and plan as written ,documented as a scribe. Based on total visit time, I have performed more than 50% of the visit. Any additional findings or plans will be noted. Past Medical History Past Medical History: No Reported History Additional Past Medical History / Comment(s): sick sinus syndrome. 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, PACEMAKER History of Any Multi-Drug Resistant Organisms: None Reported Past Surgical History: Orthopedic Surgery, Pacemaker, Tonsillectomy Additional Past Surgical History / Comment(s): Rt hand surgery, spinal fusion 2021 Past Anesthesia/Blood Transfusion Reactions: No Reported Reaction Additional Past Anesthesia/Blood Transfusion Reaction / Comment(s): BP bottomed out after pacemaker insertion Type of Cardiac Device: Permanent Pacemaker Device Placement Date:: 2016 Past Psychological History: Anxiety, Depression Smoking Status: Former smoker Past Alcohol Use History: Occasional Additional Past Alcohol Use History / Comment(s): quit smoking 1999 Past Drug Use History: None Reported - Past Family History Father Family Medical History: Cancer, Coronary Artery Disease (CAD) Mother Family Medical History: Coronary Artery Disease (CAD), Hypertension Medications and Allergies Home Medications Medication Instructions Recorded Confirmed Type Ascorbic Acid [Vitamin C] 500 mg PO DAILY 06/29/21 04/27/22 History Ergocalciferol [Vitamin D2 (1250 1,250 mcg PO DUONG 06/29/21 04/27/22 History Mcg = 10463 Iu)] Fish Oil/Dha/Epa [Fish Oil 1,200 1 cap PO DAILY 06/29/21 04/27/22 History mg Fish Oil] Rimegepant Sulfate [Nurtec Odt] 75 mg PO DAILY PRN 06/29/21 04/27/22 History Calcium Carbonate [Calcium] 600 mg PO BID 04/27/22 04/27/22 History Magnesium Oxide [Mag-Ox] 400 mg PO DAILY 04/27/22 04/27/22 History Acetaminophen Tab [Tylenol] 650 mg PO Q6HR PRN tab 04/28/22 Rx Allergies Allergy/AdvReac Type Severity Reaction Status Date / Time buspirone [From BuSpar] Allergy Rapid Verified 04/27/22 22:39 Heart Rate escitalopram [From Lexapro] Allergy Rapid Verified 04/27/22 22:39 Heart Rate loratadine [From Claritin] Allergy Unknown Verified 04/27/22 22:39 Penicillins Allergy Unknown Verified 04/27/22 22:39 Childhood topiramate [From Topamax] Allergy Unknown Verified 04/27/22 22:39 venlafaxine Allergy Rapid Verified 04/27/22 22:39 Heart Rate cyclobenzaprine AdvReac Rapid Verified 04/27/22 22:39 [From Flexeril] Heart Rate fludrocortisone AdvReac MOOD Verified 04/27/22 22:39 CHANGES midodrine AdvReac HEART RATE Verified 04/27/22 22:39 DECREASES pseudoephedrine AdvReac Rapid Verified 04/27/22 22:39 [From Claritin-D] Heart Rate Physical Exam Vitals: Vital Signs Temp Pulse Pulse Resp BP BP Pulse Ox 04/28/22 07:07 97 04/28/22 07:00 97.7 F 70 16 121/72 97 04/28/22 01:00 98.1 F 67 18 139/68 97 04/27/22 23:30 75 16 120/70 95 04/27/22 22:00 72 16 134/72 96 04/27/22 19:47 98 F 88 16 165/96 97 Intake and Output 04/27/22 04/28/22 04/28/22 22:59 06:59 14:59 Other: Voiding Method Toilet # Voids 2 Weight 74.843 kg 74.843 kg Results CBC & Chem 7: 04/27/22 20:25 04/27/22 20:25 Labs: Abnormal Lab Results - Last 24 Hours (Table) 04/27/22 04/27/22 04/27/22 Range/Units 20:25 20:25 20:25 Neutrophils # 8.2 H (1.3-7.7) k/uL D-Dimer 0.88 H (<0.60) mg/L FEU Glucose 123 H (74-99) mg/dL Assessment and Plan Time with Patient: Greater than 30
--- NOTE | 2022-04-28 19:03 | P.DS ---
Providers Date of admission: 04/28/22 00:17 Expected date of discharge: 04/28/22 Attending physician: Connor Pratt MD Consults: 04/28/22 00:01 Consult Physician Routine Consulting Provider: Isaiah Perera Consult Reason/Comments: Tachyarrhythmia Do you want consulting provider notified?: Yes Primary care physician: Wojciech Rosa Hospital Course: Final diagnosis Tachycardia History of sick sinus syndrome post pacemaker placement in 2017 History of anxiety/depression Elevated d-dimer with no evidence of PE on CT Former smoker GI prophylaxis DVT prophylaxis Full code Discharge disposition Patient is being discharged in a stable condition with guarded prognosis to home . Patient will follow-up with Dr. Rosa in the outpatient setting upon discharge. Patient is to go home with event monitor and follow up with Dr. Orellana as scheduled. Total time taken is greater than 35 minutes. Hospital course This is a pleasant 56-year-old female who presented to the emergency department with increased heart rate and felt like her heart was pounding and having some increased anxiety. Patient reports she follows with Dr. Rosa in the outpatient setting along with Dr. Orellana for cardiology with a past medical history of sick sinus syndrome and had a pacemaker placed on the right years ago. Patient also reports she does have some anxiety and also some depression. Patient reports she used to smoke and occasionally drinks although very rarely and denies any other illicit drug use. Patient was admitted with a tachyarrhythmia for cardiology to evaluate. Patient was continued on telemetry monitoringand maintaining sinus rhythm. X-ray in the ER showed no acute cardiopulmonary process or disease. Labs were done including troponins 3 which were negative although d-dimer was mildly elevated at 0.88 and CTA was done which showed no evidence of PE. Pacemaker was also interrogated yesterday evening. EKG at the time was normal sinus rhythm. Patient is anxious to go home and would like to go home. Cardiology has cleared the patient. Currently no reports of chest pain, shortness of breath, or palpitations. Patient is afebrile. No reports of nausea or vomiting and patient is tolerating diet. Patient will be discharged home today. Physical exam: Gen: This is a 56-year-old female who is awake, alert and oriented 3, well- developed, well-nourished HEENT: Head is atraumatic, normocephalic. Pupils equal, round. Sclerae is anicteric. NECK: Supple. No JVD. No lymphadenopathy. No thyromegaly. LUNGS: Clear to auscultation. No wheezes or rhonchi. No intercostal retractions. HEART: Regular rate and rhythm. No murmur. ABDOMEN: Soft. Bowel sounds are present. No masses. No tenderness. EXTREMITIES: No pedal edema. No calf tenderness. NEUROLOGICAL: Patient is awake, alert and oriented x3. Cranial nerves 2 through 12 are grossly intact. Please refer to medication reconciliation sheet for a list of medications. The impression and plan of care has been dictated by Laney Lynch, Nurse Practitioner as directed. Dr. Sophia MD I have performed a history and examination and MDM of this patient, discussed the same with the dictator, and agree with the dictator's assessment and plan as written ,documented as a scribe. Based on total visit time, I have performed more than 50% of the visit. Patient Condition at Discharge: Stable Plan - Discharge Summary New Discharge Prescriptions: New Acetaminophen Tab [Tylenol] 650 mg PO Q6HR PRN tab PRN Reason: Mild Pain Or Fever > 100.5 Continue Ascorbic Acid [Vitamin C] 500 mg PO DAILY Ergocalciferol [Vitamin D2 (1250 Mcg = 91216 Iu)] 1,250 mcg PO DUONG Rimegepant Sulfate [Nurtec Odt] 75 mg PO DAILY PRN PRN Reason: Migraine Headache Calcium Carbonate [Calcium] 600 mg PO BID Fish Oil/Dha/Epa [Fish Oil 1,200 mg Fish Oil] 1 cap PO DAILY Magnesium Oxide [Mag-Ox] 400 mg PO DAILY Discharge Medication List Ascorbic Acid [Vitamin C] 500 mg PO DAILY 06/29/21 [History] Ergocalciferol [Vitamin D2 (1250 Mcg = 65711 Iu)] 1,250 mcg PO DUONG 06/29/21 [History] Fish Oil/Dha/Epa [Fish Oil 1,200 mg Fish Oil] 1 cap PO DAILY 06/29/21 [History] Rimegepant Sulfate [Nurtec Odt] 75 mg PO DAILY PRN 06/29/21 [History] Calcium Carbonate [Calcium] 600 mg PO BID 04/27/22 [History] Magnesium Oxide [Mag-Ox] 400 mg PO DAILY 04/27/22 [History] Acetaminophen Tab [Tylenol] 650 mg PO Q6HR PRN tab 04/28/22 [Rx] Follow up Appointment(s)/Referral(s): Jessee Orellana MD [STAFF PHYSICIAN] - 05/21/22 3:30 pm (please keep your previous appointment for a device check at 3:30 pm and appointment [address] Orellana at 4:00 pm. ) Wojciech Rosa III, MD [Primary Care Provider] - 1-2 days Patient Instructions/Handouts: Heart Palpitations (ED) Activity/Diet/Wound Care/Special Instructions: Event monitor on discharge Activity Limited until follow-up Follow-up primary care provider on discharge Follow-up with cardiology Dr. Orellana in 2 weeks Continue with event monitor Discharge Disposition: HOME SELF-CARE
== END 2022-04-28 10:45 | disposition home or self-care (01) ==
LOC: EC 19:42 → 6NMEDSUR 04-28 00:17
PROVIDERS: ADMIT Internal Medicine; ATTEND Internal Medicine
DX: R00.0 Tachycardia, unspecified (principal); R79.89 Other specified abnormal findings of blood chemistry; I49.5 Sick sinus syndrome; Z95.0 Presence of cardiac pacemaker; F41.9 Anxiety disorder, unspecified; G43.909 Migraine, unspecified, not intractable, without status migrainosus; F32.A Depression, unspecified; Z79.899 Other long term (current) drug therapy; Z88.0 Allergy status to penicillin; Z88.8 Allergy status to other drugs, medicaments and biological substances; Z87.891 Personal history of nicotine dependence; Z98.1 Arthrodesis status; Z98.890 Other specified postprocedural states; Z80.9 Family history of malignant neoplasm, unspecified; Z82.49 Family history of ischemic heart disease and other diseases of the circulatory system
CPT/HCPCS: 96360; 99285; 36415; 94760; 93005; 93270; 85379; 80053; 83735; 84443; 84484 ×2; 85025; 85610; 85730; 81003; 71046; 71275; G0378; Q9967

== ENCOUNTER → 2023-01-01 | Outpatient (CLI) | payer BC ==
[2023-01-01 14:48] LABS: HCT 40.8 % (37.2-46.3); HGB 13.6 d/dL (12.0-15.0); MCHC 33.3 d/dL (32.0-37.0); MCV 89.9 FL (80.0-97.0); Mean Platelet Volume 10.5 FL (9.5-12.2); NRBC Per 100 WBC 0 X 10*3/uL (0.00-0.01); Platelet Count 303 X 10*3/uL (140-440); RBC 4.54 X 10*6/uL (4.10-5.20); RDW 12.5 % (11.5-14.5); WBC 6.17 X 10*3/uL (4.50-10.00)
[2023-01-01 15:10] LABS: ALT 31 U/L (8-44); AST 26 U/L (13-35); Albumin 4.5 d/dL (3.8-4.9); Albumin/Globulin Ratio 1.73 Ratio (1.60-3.17); Alkaline Phosphatase 107 U/L (41-126); BUN/Creat Ratio 17.62 Ratio (12.00-20.00); Blood Urea Nitrogen 14.1 mg/dL (9.0-27.0); Calcium 9.9 mg/dL (8.7-10.3); Carbon Dioxide 26.3 mmol/L (21.6-31.8); Chloride 106 mmol/L (96-109); Chol/HDL Ratio 2.59 Ratio; Globulin 2.6 d/dL (1.6-3.3); Glucose 95 mg/dL (70-110); LDL Cholesterol,Calculated 126.5 mg/dL (0.0-131.0); Potassium 4.7 mmol/L (3.5-5.5); Sodium 142 mmol/L (135-145); Total Bilirubin 0.3 mg/dL (0.3-1.2); Total Protein 7.1 d/dL (6.2-8.2)
== END | disposition home or self-care (01) ==
LOC: LABWHC1 08:47
PROVIDERS: ATTEND Family Medicine
DX: E55.9 Vitamin D deficiency, unspecified (principal)
CPT/HCPCS: 36415; 80053; 80061; 82306; 84443; 85027

== ENCOUNTER → 2023-09-08 | Outpatient (CLI) | payer BC ==
--- NOTE | 2023-09-09 08:07 | MM ---
Reason for Exam: Screening (asymptomatic). Last mammogram was performed 1 year(s) and 7 month(s) ago. Patient History: Menarche at age 15. First Full-Term at age 23. Postmenopausal. 06/14/2017, Ultrasound-Guided Core Biopsy on the Left side. Risk Values: Francheska 5 year model risk: 1.3%. NCI Lifetime model risk: 8.5%. Prior Study Comparison: 06/23/2018 Bilateral Screening Mammogram, [facility]. 02/04/2021 Bilateral Screening Mammogram, [facility]. 02/08/2022 Bilateral MG 3D screening mammo w/cad, [facility]. Tissue Density: There are scattered areas of fibroglandular density. Findings: Analyzed By CAD. Right breast: There is no suspicious group of microcalcifications or new suspicious mass. Left breast: There is no suspicious group of microcalcifications or new suspicious mass. Benign-appearing calcifications left breast. Overall Assessment: Benign, BI-RAD 2 Management: Screening Mammogram of both breasts in [address] [facility] will attempt to contact patient to return for supplemental views and ultrasound if indicated. Patient should continue monthly self-breast exams. A clinical breast exam by your physician is recommended on an annual basis. This exam should not preclude additional follow-up of suspicious palpable abnormalities. Note on Francheska scores and lifetime risk: 1. A Francheska score greater than 3% is considered moderate risk. If this is the case, consider specialist referral to assess eligibility for a risk reducing agent. 2. If overall lifetime risk for the development of breast cancer is 20% or higher, the patient may qualify for future screening with alternating mammogram and breast MRI. Electronically signed and approved by: Leonard Jules DO
== END | disposition home or self-care (01) ==
LOC: RADMAMWWP 16:12
PROVIDERS: ATTEND Internal Medicine
DX: Z12.31 Encounter for screening mammogram for malignant neoplasm of breast (principal); Z78.0 Asymptomatic menopausal state
CPT/HCPCS: 77063; 77067

== ENCOUNTER → 2024-09-03 | Outpatient (CLI) | payer BC ==
--- NOTE | 2024-09-04 08:20 | CTL ---
EXAMINATION TYPE: CT Low Dose Lung DATE OF EXAM: 09/03/2024 3:47 PM COMPARISON: 04/27/2022 CLINICAL INDICATION: Female, 59 years old with history of ENCNTR SCREEN FOR MALIGNANT NEOPLASM OF RES PIRATORY ORGANS, FORMER SMOKER- QUIT 15 YEARS AGO, PACEMAKER 2017, FAMILY HX LUNG CA, History of [facility] account liaison hospice use. 20 pack-year history. TECHNIQUE: Low dose computed tomography scan was performed through the chest at 1 mm thick sections a nd reconstructed images in multiple planes at 1 mm and [address] DLP: 111 mGycm, CT CTDI: 3.0 mGy, Automated exposure control for dose reduction was used. CT DIAGNOSTIC QUALITY: Satisfactory FINDINGS: Right anterior chest wall pacemaker generator with right atrial and right ventricular leads. Heart normal size without pericardial effusion. Mild proximal LAD coronary artery calcifications are present. Aorta normal caliber with conventional arch vessel branching anatomy. No thoracic lymphadenopathy by CT size criteria. Mild emphysematous change. No consolidation or pleural effusion. Few scattered 4 mm smaller pulmonary nodules are present. No suspicious pulmonary nodule identified. Visualized upper abdomen shows prominent ingested material within the stomach. Bones: No osseous destructive process. IMPRESSION: 1. LungRADS 2, benign. A few scattered 4 mm and smaller pulmonary nodules on baseline screening. 2. COPD with mild emphysema. CT LUNG RAD AND CT CHEST RECOMMENDATION: Lung-Rad 2 Benign Appearance or Behavior: Continue annual sc reening with LDCT in 12 months. S Modifier (other clinically significant findings): None [facility], Workstation: [employer], 09/04/2024 8:18 AM
== END | disposition home or self-care (01) ==
LOC: RADCTMAIN 15:23
DX: Z12.2 Encounter for screening for malignant neoplasm of respiratory organs (principal); Z00.00 Encounter for general adult medical examination without abnormal findings; J44.9 Chronic obstructive pulmonary disease, unspecified; J43.9 Emphysema, unspecified; Z87.891 Personal history of nicotine dependence
CPT/HCPCS: 71271

== ENCOUNTER → 2024-10-05 | Outpatient (CLI) | payer BC ==
--- NOTE | 2024-10-05 18:49 | MM ---
Reason for Exam: Screening (asymptomatic). Last mammogram was performed 1 year(s) and 1 month(s) ago. Patient History: Menarche at age 15. First Full-Term at age 23. Postmenopausal. 06/14/2017, Ultrasound-Guided Core Biopsy on the Left side. Risk Values: Francheska 5 year model risk: 1.4%. NCI Lifetime model risk: 8.3%. Prior Study Comparison: 02/04/2021 Bilateral Screening Mammogram, [facility]. 02/08/2022 Bilateral MG 3D screening mammo w/cad, [facility]. 09/08/2023 Bilateral MG 3D screening mammo w/cad, [facility]. Tissue Density: There are scattered areas of fibroglandular density. Findings: Analyzed By CAD. A few benign oil cyst calcifications on the left. Pacemaker generator projecting over the right pectoralis. There is no suspicious group of microcalcifications or new suspicious mass in either breast. Overall Assessment: Benign, BI-RAD 2 Management: Screening Mammogram of both breasts in 1 year. Patient should continue monthly self-breast exams. A clinical breast exam by your physician is recommended on an annual basis. This exam should not preclude additional follow-up of suspicious palpable abnormalities. Note on Francheska scores and lifetime risk: 1. A Francheska score greater than 3% is considered moderate risk. If this is the case, consider specialist referral to assess eligibility for a risk reducing agent. 2. If overall lifetime risk for the development of breast cancer is 20% or higher, the patient may qualify for future screening with alternating mammogram and breast MRI. [facility], , 10/05/2024 6:47 PM. Electronically signed and approved by: Madison Bazan M.D. Radiologist
== END | disposition home or self-care (01) ==
LOC: RADMAMWWP 16:27
PROVIDERS: ATTEND Family Medicine
DX: Z12.31 Encounter for screening mammogram for malignant neoplasm of breast (principal); R92.323 Mammographic fibroglandular density, bilateral breasts; R92.1 Mammographic calcification found on diagnostic imaging of breast; Z78.0 Asymptomatic menopausal state
CPT/HCPCS: 77063; 77067